=== PATIENT | male | born 1980 | race Caucasian/White ===

== ENCOUNTER 2016-07-18 09:41 | Inpatient (IN) | payer OTHER ==
[2016-07-18 10:35] VITALS: BMI 26.4
--- NOTE | 2016-07-18 11:09 | HP ---
CIWA Score - CIWA Score Nausea/Vomitin-Mild Nausea/No Vomiting Muscle Tremors: 4-Moderate,w/Arms Extend Anxiety: 4-Mod. Anxious/Guarded Agitation: 1-Slight > Activity Paroxysmal Sweats: 1-Minimal Palms Moist Orientation: 0-Oriented Tacttile Disturbances: 1-Very Mild Itch/Numbness Auditory Disturbances: 1-Very Mild Visual Disturbances: 1-Very Mild Sensitivity Headache: 1-Very Mild CIWA-Ar Total Score: 15 Admission ROS BHS - HPI Chief Complaint: my parole sent me here to get of the xanax - they don't want me taking it with the suboxone Allergies/Adverse Reactions: Allergies Allergy/AdvReac Type Severity Reaction Status Date / Time No Known Drug Allergies Allergy Unknown Verified 07/18/16 11:51 Fish Containing Products AdvReac Intermediate Rash Verified 07/18/16 10:58 History of Present Illness: 35 yo gentleman here for detox from alprazolam. On suboxone for four months at [facility] - took dose today, verified by [facility]. No seizures. Last time in detox eight years ago at [facility]. Exam Limitations: Clinical Condition - Ebola screening Have you traveled outside of the country in the last 21 days: No Have you had contact with anyone from an Ebola affected area: No Have you been sick,other than usual withdrawal symptoms: No Do you have a fever: No - Review of Systems Constitutional: Chills, Loss of Appetite, Night Sweats, Changes in sleep, Weakness EENT: reports: Nose Congestion Respiratory: reports: Cough, Other (yellow/green phlegm x 1 day) Cardiac: reports: No Symptoms Reported GI: reports: No Symptoms Reported : reports: Frequency Musculoskeletal: reports: No Symptoms Reported Integumentary: reports: Dryness Neuro: reports: No Symptoms reported Hematology: reports: No Symptoms Reported Psychiatric: reports: Mood/Affect Appropiate, Orientated x3, Anxious Other Systems: Reviewed and Negative Patient History - Patient Medical History Hx Anemia: No Hx Asthma: No Hx Chronic Obstructive Pulmonary Disease (COPD): No Hx Cancer: No Hx Cardiac Disorders: No Hx Congestive Heart Failure: No Hx Hypertension: No Hx Hypercholesterolemia: No Hx Pacemaker: No HX Cerebrovascular Accident: No Hx Seizures: No Hx Dementia: No Hx Diabetes: Yes (oral meds) Hx Gastrointestinal Disorders: No Hx Liver Disease: No Hx Genitourinary Disorders: No Hx Sexually Transmitted Disorders: No Hx Renal Disease (ESRD): No Hx Thyroid Disease: No Hx Human Immunodeficiency Virus (HIV): No Hx Hepatitis C: Yes (not treated yet) Hx Suicide Attempt: No Hx Bipolar Disorder: Yes (on meds, never hospitalized) Hx Schizophrenia: No - Patient Surgical History Past Surgical History: No - PPD History Previous Implant?: Yes Documented Results: Negative w/o proof Implanted On Prior R Admission?: No PPD to be Administered?: Yes - Reproductive History Patient is a Female of Child Bearing Age (11 -55 yrs old): No (male) - Smoking Cessation Smoking history: Current every day smoker Have you smoked in the past 12 months: Yes Aproximately how many cigarettes per day: 10 Hx Chewing Tobacco Use: No Initiated information on smoking cessation: Yes 'Breaking Loose' booklet given: 07/18/16 (give on floor) - Substance & Tx. History Hx Alcohol Use: No Hx Substance Use: Yes Substance Use Type: Tranquilizers Hx Substance Use Treatment: Yes (xanax) - Substances Abused Alprazolam (Xanax) Route: Oral Frequency: Daily Amount used: 4mg Age of first use: 15 Date of Last Use: 07/18/16 Family Disease History - Family Disease History Family Disease History: Diabetes: Father (alive), Heart Disease: Mother (alive) , Other: Father, Brother (one - alive ), Sister (one - alive), Daughter (age 15 - alive - no problems) Admission Physical Exam S - Vital Signs Vital Signs: Vital Signs - 24 hr 07/18/16 10:29 Temperature 99.0 F Pulse Rate 85 Respiratory 18 Rate Blood Pressure 126/79 - Physical General Appearance: Yes: Nourished, Appropriately Dressed, Mild Distress HEENTM: Yes: Hearing grossly Normal, Normal ENT Inspection, Normocephalic, Normal Voice, Pharynx Normal Respiratory: Yes: Normal Breath Sounds, No Respiratory Distress Neck: Yes: No masses,lesions,Nodules, Supple Breast: Yes: Breast Exam Deferred Cardiology: Yes: Regular Rhythm, Regular Rate Abdominal: Yes: Soft Genitourinary: Yes: Frequency Back: Yes: Normal Inspection Musculoskeletal: Yes: full range of Motion, Gait Steady Extremities: Yes: Normal Range of Motion, Non-Tender Neurological: Yes: Fully Oriented, Alert, Normal Mood/Affect Integumentary: Yes: Normal Color, Dry, Warm Lymphatic: Yes: Within Normal Limits - Diagnostic (1) Diabetes mellitus treated with oral medication Current Visit: Yes Status: Chronic (2) Nicotine dependence Current Visit: Yes Status: Chronic Qualifiers: Nicotine product type: cigarettes (3) Sedative, hypnotic or anxiolytic dependence with intoxication, uncomplicated Current Visit: Yes Status: Chronic (4) Hepatitis C antibody positive in blood Current Visit: Yes Status: Acute Cleared for Admission [facility] - Detox or Rehab [facility] Level of Care: Medically Managed Detox Regimen/Protocol: Valium [facility] Breath Alcohol Content Breath Alcohol Content: 0 Urine Drug Screen - Results Drug Screen Negative: No Urine Drug Screen Results: BZO-Benzodiazepines
[2016-07-18] MEDS ORDERED: MAGNESIUM CITRATE 300 ML BOTTLE PO PRN (11:11)
[2016-07-18] MEDS ORDERED: MENTHOL/PHENOL 1 EACH UD MM PRN (11:11)
[2016-07-18] MEDS ORDERED: P-EPHED 60MG/TRIPROLIDI 2.5MG TABLET PO PRN (11:11)
[2016-07-18] MEDS ORDERED: diazePAM 5 MG TABLET PO ONE ×2 (11:11→12:45)
[2016-07-18] MEDS ORDERED: hydrOXYzine PAMOATE 50 MG CAPSULE (FP) PO PRN (11:11)
[2016-07-18] MEDS ORDERED: MAG HYDROX/AL HYDROX/SIMETH 30 ML UNIT-DOSE CUP PO PRN (11:11)
[2016-07-18] MEDS ORDERED: guaiFENesin/D-METHORPHAN HB 10 ML UNIT-DOSE CUPS PO PRN (11:11)
[2016-07-18] MEDS ORDERED: LOPERAMIDE HCL 2 MG CAPSULE PO PRN (11:11)
[2016-07-18] MEDS ORDERED: NICOTINE POLACRILEX 4 MG GUM BUC PRN (11:11)
[2016-07-18] MEDS ORDERED: ACETAMINOPHEN 325 MG TABLET (FP) PO PRN (11:11)
[2016-07-18] MEDS ORDERED: IBUPROFEN 400 MG TABLET (FP) PO PRN (11:11)
[2016-07-18] MEDS ORDERED: MAGNESIUM HYDROX 2400MG/30ML ORAL SUSPENSION 30 ML CUP PO PRN (11:11)
[2016-07-18] MEDS: diazePAM 5 MG TABLET PO SCH ×2 (13:44→22:52)
[2016-07-18] MEDS: metFORMIN HCL 500 MG TABLET (FP) PO SCH (13:44)
[2016-07-18] MEDS: NICOTINE 14 MG/24 HOURS TOPICAL PATCH TD SCH (13:45)
--- NOTE | 2016-07-18 14:11 | CONSULT ---
[facility] Psychiatric Consult - Data Date of interview: 07/18/16 Admission source: [facility] Identifying data: This is 35 years old male with no psychiatric hospitalization history intoxicated with: Xanax and Nicotine Substance Abuse History: - Smoking Cessation. Smoking history: Current every day smoker. Have you smoked in the past 12 months: Yes. Aproximately how many cigarettes per day: 10. Hx Chewing Tobacco Use: No. Initiated information on smoking cessation: Yes. 'Breaking Loose' booklet given: 07/18/16 (give on floor ). - Substance & Tx. History. Hx Alcohol Use: No. Hx Substance Use: Yes. Substance Use Type: Tranquilizers. Hx Substance Use Treatment: Yes (xanax). - Substances Abused. Alprazolam (Xanax). Route: Oral. Frequency: Daily. Amount used: 4mg. Age of first use: 15. Date of Last Use: 07/18/16 Medical History: Hep C+, DM Psychiatric History: Pateint reports history of depression and anxiety, reportsm taking prior to admission: Abilify 10mg poqd. Zoloft 100mg poqd Physical/Sexual Abuse/Trauma History: Denies Additional Comment: Abilify 10mg poqd. Zoloft 100mg poqd Mental Status Exam - Mental Status Exam Alert and Oriented to: Person Cognitive Function: Fair Patient Appearance: Unkempt Mood: Sad Affect: Flat Patient Behavior: Sedated Speech Pattern: Delayed Voice Loudness: Mildly Soft/Quiet Thought Process: Circumstantial Thought Disorder: Being Controlled Hallucinations: Denies Suicidal Ideation: Denies Homicidal Ideation: Denies Insight/Judgement: Fair Sleep: Difficulty falling asleep Appetite: Weight gain Muscle strength/Tone: Mild Hypotonicity Gait/Station: Shuffling Additional Comments: Abilify 10mg poqd. Zoloft 100mg poqd Psychiatric Findings - Problem List ([place] 1, 2,3) (1) Nicotine dependence Current Visit: Yes Status: Chronic Qualifiers: Nicotine product type: cigarettes (2) Sedative, hypnotic or anxiolytic dependence with intoxication, uncomplicated Current Visit: Yes Status: Chronic (3) Drug-induced mood disorder Current Visit: Yes Status: Acute - Initial Treatment Plan Initial Treatment Plan: Abilify 10mg poqd. Zoloft 100mg poqd
[2016-07-18 19:20] LABS: URINE APPEARANCE CLEAR; URINE BILIRUBIN NEGATIVE (NEGATIVE); URINE BLOOD NEGATIVE (NEGATIVE); URINE COLOR YELLOW; URINE GLUCOSE (UA) NEGATIVE (NEGATIVE); URINE KETONE NEGATIVE (NEGATIVE); URINE LEUK ESTERASE NEGATIVE (NEGATIVE); URINE NITRITE NEGATIVE (NEGATIVE); URINE PROTEIN NEGATIVE (NEGATIVE); URINE UROBILINOGEN NEGATIVE E.U./dl (0.2-1.0)
[2016-07-18] MEDS ORDERED: diphenhydrAMINE HCL 50 MG CAPSULE PO PRN (22:00)
[2016-07-18] MEDS: THIAMINE HCL 100 MG TABLET (FP) PO SCH (22:52)
[2016-07-19] MEDS: diazePAM 5 MG TABLET PO SCH ×3 (07:16→22:35)
[2016-07-19] MEDS: metFORMIN HCL 500 MG TABLET (FP) PO SCH (07:19)
[2016-07-19] MEDS ORDERED: diazePAM 5 MG TABLET PO SCH (10:00)
[2016-07-19] MEDS: SERTRALINE HCL 50 MG TABLET (FP) PO SCH (10:45)
[2016-07-19] MEDS: PRENATAL VITAMINS W/ FOLIC ACID TABLET (FP) PO SCH (10:45)
[2016-07-19] MEDS: BUPRENORPHINE/NALOXONE 8 MG/2 MG FILM PACKET SL SCH (10:47)
[2016-07-19] MEDS: NICOTINE 14 MG/24 HOURS TOPICAL PATCH TD SCH (10:47)
[2016-07-19] MEDS: ARIPiprazole 10 MG TABLET PO SCH (10:48)
[2016-07-19] MEDS: diazePAM 5 MG TABLET PO PRN (10:49)
[2016-07-19 11:05] LABS: MCH 29.9 pg (25.7-33.7); MCHC 33.2 g/dl (32.0-35.9); MEAN PLT VOLUME 8.6 fl (7.5-11.1); PLATELET COUNT 197 K/MM3 (134-434); RDW 14.2 % (11.9-15.9); WHITE BLOOD COUNT 10.4 K/mm3 (4.0-10.0)
[2016-07-19 11:14] LABS: ALBUMIN 3.8 g/dl (3.4-5.0); ANION GAP 8 (8-16); CALCIUM 8.4 mg/dL (8.5-10.1); CO2 28 mmol/L (21-32); COCKROFT - GAULT 179.54; CREATININE 0.7 mg/dL (0.7-1.3); GLUCOSE,RANDOM 95 mg/dL (74-106); SGOT/AST 55 U/L (15-37); SGPT/ALT 82 U/L (12-78)
[2016-07-19 11:22] LABS: ALK PHOS 83 U/L (45-117); BILIRUBIN,TOTAL 0.5 mg/dL (0.2-1.0); TOT PROT 7.2 g/dl (6.4-8.2)
--- NOTE | 2016-07-19 11:24 | PN ---
S CIWA - CIWA Score Nausea/Vomitin-Mild Nausea/No Vomiting Muscle Tremors: 3 Anxiety: 4-Mod. Anxious/Guarded Agitation: 3 Paroxysmal Sweats: 3 Orientation: 0-Oriented Tacttile Disturbances: 0-None Auditory Disturbances: 0-None Visual Disturbances: 0-None Headache: 0-None Present CIWA-Ar Total Score: 14 BHS Progress Note (SOAP) Subjective: Anxiety,tremors,sweating,interrupted sleep,restless Objective: 07/19/16 11:23 Vital Signs - 8 hr 07/19/16 07/19/16 07/19/16 03:49 06:00 10:00 Temperature 97.5 F L 98.1 F Pulse Rate 60 68 Respiratory 18 18 18 Rate Blood Pressure 122/64 122/72 Laboratory Tests 07/18/16 07/18/16 07/19/16 12:10 19:03 07:00 WBC 10.4 H RBC 5.55 Hgb 16.6 Hct 49.9 H MCV 90.0 MCHC 33.2 RDW 14.2 Plt Count 197 MPV 8.6 POC Glucometer 135 Urine Color Yellow Urine Appearance Clear Urine pH 5.0 Ur Specific [place] 1.020 Urine Protein Negative Urine Glucose (UA) Negative Urine Ketones Negative Urine Blood Negative Urine Nitrite Negative Urine Bilirubin Negative Urine Urobilinogen Negative Ur Leukocyte Esterase Negative 07/19/16 07:18 WBC RBC Hgb Hct MCV MCHC RDW Plt Count MPV POC Glucometer 101 Urine Color Urine Appearance Urine pH Ur Specific [place] Urine Protein Urine Glucose (UA) Urine Ketones Urine Blood Urine Nitrite Urine Bilirubin Urine Urobilinogen Ur Leukocyte Esterase labs noted Assessment: 07/19/16 11:23 Withdrawal sx. Plan: Continue detox
--- NOTE | 2016-07-19 12:45 | EKG ---
Test Reason : Blood Pressure : / mmHG Vent. Rate : 072 BPM Atrial Rate : 072 BPM P-R Int : 150 ms QRS Dur : 090 ms QT Int : 368 ms P-R-T Axes : 058 038 037 degrees QTc Int : 402 ms NORMAL SINUS RHYTHM NORMAL ECG NO PREVIOUS ECGS AVAILABLE Confirmed by AVA FRIEDMAN MD ([id number]) on 07/19/2016 12:45:09 PM Referred By: Confirmed By:AVA FRIEDMAN MD
[2016-07-19] MEDS: THIAMINE HCL 100 MG TABLET (FP) PO SCH (22:35)
[2016-07-20] MEDS: metFORMIN HCL 500 MG TABLET (FP) PO SCH (06:30)
[2016-07-20] MEDS: diazePAM 5 MG TABLET PO PRN ×3 (06:32→22:22)
[2016-07-20] MEDS ORDERED: diazePAM 5 MG TABLET PO SCH ×2 (10:00)
[2016-07-20] MEDS: NICOTINE 14 MG/24 HOURS TOPICAL PATCH TD SCH (10:32)
[2016-07-20] MEDS: PRENATAL VITAMINS W/ FOLIC ACID TABLET (FP) PO SCH (10:32)
[2016-07-20] MEDS: SERTRALINE HCL 50 MG TABLET (FP) PO SCH (10:32)
[2016-07-20] MEDS: BUPRENORPHINE/NALOXONE 8 MG/2 MG FILM PACKET SL SCH (10:32)
[2016-07-20] MEDS: ARIPiprazole 10 MG TABLET PO SCH (10:33)
--- NOTE | 2016-07-20 11:21 | PN ---
S CIWA - CIWA Score Nausea/Vomitin-Mild Nausea/No Vomiting Muscle Tremors: 2 Anxiety: 3 Agitation: 3 Paroxysmal Sweats: 3 Orientation: 0-Oriented Tacttile Disturbances: 1-Very Mild Itch/Numbness Auditory Disturbances: 0-None Visual Disturbances: 0-None Headache: 0-None Present CIWA-Ar Total Score: 13 S Progress Note (SOAP) Subjective: interrupted sleep, sweats , wants to leave detox 1 day early . Objective: 07/20/16 11:19 Vital Signs Temperature 97.5 F L 07/20/16 09:16 Pulse Rate 58 L 07/20/16 09:16 Respiratory Rate 16 07/20/16 09:16 Blood Pressure 125/73 07/20/16 09:16 O2 Sat by Pulse Oximetry (%) Laboratory Tests 07/18/16 07/18/16 07/19/16 12:10 19:03 07:00 WBC 10.4 H RBC 5.55 Hgb 16.6 Hct 49.9 H MCV 90.0 MCHC 33.2 RDW 14.2 Plt Count 197 MPV 8.6 Sodium Potassium Chloride Carbon Dioxide Anion Gap BUN Creatinine Creat Clearance w eGFR POC Glucometer 135 Random Glucose Calcium Total Bilirubin AST ALT Alkaline Phosphatase Total Protein Albumin Urine Color Yellow Urine Appearance Clear Urine pH 5.0 Ur Specific [place] 1.020 Urine Protein Negative Urine Glucose (UA) Negative Urine Ketones Negative Urine Blood Negative Urine Nitrite Negative Urine Bilirubin Negative Urine Urobilinogen Negative Ur Leukocyte Esterase Negative RPR Titer 07/19/16 07/19/16 07/19/16 07:00 07:00 07:18 WBC RBC Hgb Hct MCV MCHC RDW Plt Count MPV Sodium 139 Potassium 4.6 Chloride 103 Carbon Dioxide 28 Anion Gap 8 BUN 9 Creatinine 0.7 Creat Clearance w eGFR > 60 POC Glucometer 101 Random Glucose 95 Calcium 8.4 L Total Bilirubin 0.5 AST 55 H ALT 82 H Alkaline Phosphatase 83 Total Protein 7.2 Albumin 3.8 Urine Color Urine Appearance Urine pH Ur Specific [place] Urine Protein Urine Glucose (UA) Urine Ketones Urine Blood Urine Nitrite Urine Bilirubin Urine Urobilinogen Ur Leukocyte Esterase RPR Titer Nonreactive 07/20/16 06:24 WBC RBC Hgb Hct MCV MCHC RDW Plt Count MPV Sodium Potassium Chloride Carbon Dioxide Anion Gap BUN Creatinine Creat Clearance w eGFR POC Glucometer 166 Random Glucose Calcium Total Bilirubin AST ALT Alkaline Phosphatase Total Protein Albumin Urine Color Urine Appearance Urine pH Ur Specific [place] Urine Protein Urine Glucose (UA) Urine Ketones Urine Blood Urine Nitrite Urine Bilirubin Urine Urobilinogen Ur Leukocyte Esterase RPR Titer pt aox3 in nad ambulating Assessment: 07/20/16 11:20 withdrawal sx's Plan: cont. detox increase fluids change valium order for am d/c .
[2016-07-20] MEDS: THIAMINE HCL 100 MG TABLET (FP) PO SCH (22:22)
[2016-07-21] MEDS: metFORMIN HCL 500 MG TABLET (FP) PO SCH (07:30)
--- NOTE | 2016-07-21 08:43 | DS ---
[facility] Detox Discharge Summary Admission Date: 07/18/16 Discharge Date: 07/21/16 - History Present History: Alcohol Dependence, Sedative Dependence - Physical Exam Results Vital Signs: Vital Signs Temperature 97.3 F L 07/21/16 06:56 Pulse Rate 49 L 07/21/16 06:56 Respiratory Rate 18 07/21/16 06:56 Blood Pressure 95/48 07/21/16 06:56 O2 Sat by Pulse Oximetry (%) - Treatment Hospital Course: Detox Protocol Followed, Detoxed Safely, Responded well, Discharged Condition Good, Rehab Referral Accepted - Medication Discharge Medications: Ambulatory Orders Aripiprazole [Abilify -] 10 mg PO DAILY 07/18/16 Aripiprazole [Abilify -] 10 mg PO DAILY #30 tablet 07/18/16 Buprenorphine HCl/Naloxone HCl [Suboxone 8 mg-2 mg Sl Tablets] 1 each SL DAILY 07/18/16 Metformin HCl [Glucophage -] 500 mg PO DAILY 07/18/16 Sertraline HCl [Zoloft -] 100 mg PO DAILY 07/18/16 Sertraline HCl [Zoloft -] 100 mg PO DAILY #30 tablet 07/18/16 - Diagnosis (1) Alcohol dependence Current Visit: Yes Status: Chronic Qualifiers: Substance use status: uncomplicated Qualified Code(s): F10.20 - Alcohol dependence, uncomplicated (2) Drug-induced mood disorder Current Visit: Yes Status: Acute (3) Hepatitis C antibody positive in blood Current Visit: Yes Status: Acute (4) Diabetes mellitus treated with oral medication Current Visit: Yes Status: Chronic (5) Nicotine dependence Current Visit: Yes Status: Chronic Qualifiers: Nicotine product type: cigarettes (6) Sedative, hypnotic or anxiolytic dependence with intoxication, uncomplicated Current Visit: Yes Status: Chronic - AMA Did Patient Leave Against Medical Advice: No
[2016-07-21] MEDS: BUPRENORPHINE/NALOXONE 8 MG/2 MG FILM PACKET SL SCH (09:17)
[2016-07-21] MEDS: ARIPiprazole 10 MG TABLET PO SCH (09:17)
[2016-07-21] MEDS: PRENATAL VITAMINS W/ FOLIC ACID TABLET (FP) PO SCH (09:18)
[2016-07-21] MEDS: SERTRALINE HCL 50 MG TABLET (FP) PO SCH (09:18)
[2016-07-21 09:46] VITALS: BP 106/59; PULSE 57; TEMP 97.9
[2016-07-21] MEDS ORDERED: diazePAM 5 MG TABLET PO SCH (10:00)
[2016-07-21] MEDS: NICOTINE 14 MG/24 HOURS TOPICAL PATCH TD SCH (11:33)
[2016-07-22] MEDS ORDERED: diazePAM 5 MG TABLET PO SCH (10:00)
== END 2016-07-21 12:48 | disposition other institution (70) | DRG 775 ==
LOC: YASAS 09:41 → Y6N 12:31
PROVIDERS: ADMIT Internal Medicine; ATTEND Internal Medicine Addiction Medicine
PROC: HZ2ZZZZ Detoxification Services for Substance Abuse Treatment (ICD-10-PCS; principal; 2016-07-21)
DX: F13.230 Sedative, hypnotic or anxiolytic dependence with withdrawal, uncomplicated (principal); F10.230 Alcohol dependence with withdrawal, uncomplicated; F17.210 Nicotine dependence, cigarettes, uncomplicated; F19.24 Other psychoactive substance dependence with psychoactive substance-induced mood disorder; E11.9 Type 2 diabetes mellitus without complications; Z79.84 Long term (current) use of oral hypoglycemic drugs; B18.2 Chronic viral hepatitis C
CPT/HCPCS: 36415; 80053; 81003; 85027; 86593; 93005; 93010

== ENCOUNTER 2016-07-21 13:22 | Inpatient (IN) | payer OTHER ==
[2016-07-21] MEDS ORDERED: diphenhydrAMINE HCL 50 MG CAPSULE PO PRN (13:30)
[2016-07-21] MEDS ORDERED: MENTHOL/PHENOL 1 EACH UD MM PRN (13:30)
[2016-07-21] MEDS ORDERED: MAGNESIUM HYDROX 2400MG/30ML ORAL SUSPENSION 30 ML CUP PO PRN (13:30)
[2016-07-21] MEDS ORDERED: LOPERAMIDE HCL 2 MG CAPSULE PO PRN (13:30)
[2016-07-21] MEDS ORDERED: P-EPHED 60MG/TRIPROLIDI 2.5MG TABLET PO PRN (13:30)
[2016-07-21] MEDS ORDERED: MAG HYDROX/AL HYDROX/SIMETH 30 ML UNIT-DOSE CUP PO PRN (13:30)
[2016-07-21] MEDS ORDERED: NICOTINE POLACRILEX 2 MG GUM BUC PRN (13:30)
[2016-07-21] MEDS ORDERED: MAGNESIUM CITRATE 300 ML BOTTLE PO PRN (13:30)
[2016-07-21 14:05] VITALS: BMI 27.1
[2016-07-21] MEDS: INSULIN SLIDING SCALE (NOVOLOG) 1 VIAL SQ SCH (16:44)
[2016-07-21] MEDS: THIAMINE HCL 100 MG TABLET (FP) PO SCH (23:45)
[2016-07-22] MEDS: guaiFENesin/D-METHORPHAN HB 10 ML UNIT-DOSE CUPS PO PRN (06:08)
--- NOTE | 2016-07-22 06:32 | HP ---
Psychiatrist Admission - Data Date of interview: 07/22/16 Admission source: 6N Identifying data: This is the first [facility] admission for this 35 years old single male, father of a 16 years old daughter, unemployed on public assistance,supporting housing Medical History: Significant for DM, Hep C. Attends [facility] on Suboxone 8 mg/2 mg/day. Smokes 10 cigarettes daily Psychiatric History: Reports that his only psychiatric admission was in 2007 when he was admitted to [facility] for depression and anxiety in the setting of substance use. Claims that he was diagnosed with Bipolar Disorder and treated with Zoloft and Abilify. He was discharged after 2 weeks and referred to [facility] where he was continued on the same medications for a year when he dropped out of treatment. Told card writer hand that he went to [facility] till recently and did not get psychiatric services while there. He resumed psychiatric treatment for the past 5 months at [facility] where he is on OTP. He is currently presvribed Zoloft 100 mg po daily & Abilify 10 mg po HS. He denies history of suicidal attempt. At present, reports feeling anxious Physical/Sexual Abuse/Trauma History: Denies his Additional Comment: Reports history of multiple arrests including 2 felony conviction. Reports being on parole till Dec 2018 Vital Signs: Vital Signs - 24 hr 07/21/16 07/22/16 07/22/16 13:47 00:30 03:30 Temperature 98.7 F Respiratory 18 18 Rate Allergies/Adverse Reactions: Allergies Allergy/AdvReac Type Severity Reaction Status Date / Time No Known Drug Allergies Allergy Unknown Verified 07/21/16 14:06 Fish Containing Products AdvReac Intermediate Rash Verified 07/21/16 14:06 Date of last physical exam: 07/18/16 Concur with the findings of this exam: Yes - Substance Abuse/Tx History Hx Alcohol Use: No Hx Substance Use: Yes Substance Use Type: Heroin (Last used heroin 3 years ago. ), Tranquilizers ( Started using xanax at age 15, consumes 4mg daily. Last used on 3=07/18/16) Hx Substance Use Treatment: Yes (4 previous inpt detox. First inpt rehab) - Admission Criteria Previous failed treatment: No Poor recovery environment: Yes Comorbidities: Yes Lacks judgement: Yes Mental Status Exam - Mental Status Exam Alert and Oriented to: Time, Place, Person Cognitive Function: Fair Patient Appearance: Well Groomed Mood: Anxious Affect: Appropriate Patient Behavior: Cooperative (underlying irritability) Speech Pattern: Clear Voice Loudness: Normal Thought Process: Intact Thought Disorder: Not Present Hallucinations: Denies Suicidal Ideation: Denies Homicidal Ideation: Denies Insight/Judgement: Poor Sleep: Poorly Appetite: Good Muscle strength/Tone: Normal Gait/Station: Normal Psychiatric Findings - Problem List ([place] 1, 2,3) (1) Sedative, hypnotic or anxiolytic dependence with intoxication, uncomplicated Current Visit: No Status: Chronic (2) Nicotine dependence Current Visit: No Status: Chronic Qualifiers: Nicotine product type: cigarettes (3) Opioid dependence on agonist therapy Current Visit: Yes Status: Acute (4) Bipolar disorder Current Visit: Yes Status: Acute (5) Substance induced mood disorder Current Visit: Yes Status: Ruled-out (6) Hepatitis C antibody positive in blood Current Visit: No Status: Acute (7) Diabetes mellitus treated with oral medication Current Visit: No Status: Chronic - Initial Treatment Plan Initial Treatment Plan: 1) Continue Zoloft 100 mg po daily and Abilify 10 mg po daily. 2) Monitor progress
[2016-07-22] MEDS: metFORMIN HCL 500 MG TABLET (FP) PO SCH (07:05)
[2016-07-22] MEDS: INSULIN SLIDING SCALE (NOVOLOG) 1 VIAL SQ SCH ×2 (07:06→16:48)
[2016-07-22] MEDS: PRENATAL VITAMINS W/ FOLIC ACID TABLET (FP) PO SCH (09:42)
[2016-07-22] MEDS: NICOTINE 14 MG/24 HOURS TOPICAL PATCH TD SCH (09:43)
[2016-07-22] MEDS ORDERED: BUPRENORPHINE/NALOXONE 8 MG/2 MG FILM PACKET SL SCH (10:00)
[2016-07-22] MEDS: SERTRALINE HCL 50 MG TABLET (FP) PO SCH (10:46)
[2016-07-22] MEDS: ARIPiprazole 10 MG TABLET PO SCH (10:47)
[2016-07-22] MEDS: ACETAMINOPHEN 325 MG TABLET (FP) PO PRN (16:53)
[2016-07-22] MEDS: THIAMINE HCL 100 MG TABLET (FP) PO SCH (21:40)
[2016-07-23] MEDS: BUPRENORPHINE/NALOXONE 8 MG/2 MG FILM PACKET SL SCH (06:31)
[2016-07-23] MEDS: metFORMIN HCL 500 MG TABLET (FP) PO SCH (06:32)
[2016-07-23] MEDS: INSULIN SLIDING SCALE (NOVOLOG) 1 VIAL SQ SCH ×2 (06:33→23:15)
[2016-07-23] MEDS: guaiFENesin/D-METHORPHAN HB 10 ML UNIT-DOSE CUPS PO PRN ×3 (06:57→20:50)
[2016-07-23] MEDS: NICOTINE 14 MG/24 HOURS TOPICAL PATCH TD SCH (10:30)
[2016-07-23] MEDS: SERTRALINE HCL 50 MG TABLET (FP) PO SCH (10:30)
[2016-07-23] MEDS: ARIPiprazole 10 MG TABLET PO SCH (10:30)
[2016-07-23] MEDS: PRENATAL VITAMINS W/ FOLIC ACID TABLET (FP) PO SCH (10:30)
[2016-07-23] MEDS ORDERED: BUPRENORPHINE/NALOXONE 8 MG/2 MG FILM PACKET SL SCH (18:00)
[2016-07-23] MEDS: THIAMINE HCL 100 MG TABLET (FP) PO SCH (23:15)
[2016-07-24] MEDS: BUPRENORPHINE/NALOXONE 8 MG/2 MG FILM PACKET SL SCH (06:04)
[2016-07-24] MEDS: metFORMIN HCL 500 MG TABLET (FP) PO SCH (07:25)
[2016-07-24] MEDS: INSULIN SLIDING SCALE (NOVOLOG) 1 VIAL SQ SCH ×2 (07:25→17:01)
[2016-07-24] MEDS: PRENATAL VITAMINS W/ FOLIC ACID TABLET (FP) PO SCH (10:11)
[2016-07-24] MEDS: SERTRALINE HCL 50 MG TABLET (FP) PO SCH (10:11)
[2016-07-24] MEDS: NICOTINE 14 MG/24 HOURS TOPICAL PATCH TD SCH (10:12)
[2016-07-24] MEDS: ARIPiprazole 10 MG TABLET PO SCH (10:53)
[2016-07-24] MEDS: THIAMINE HCL 100 MG TABLET (FP) PO SCH (21:45)
[2016-07-25] MEDS: BUPRENORPHINE/NALOXONE 8 MG/2 MG FILM PACKET SL SCH (05:49)
[2016-07-25] MEDS: INSULIN SLIDING SCALE (NOVOLOG) 1 VIAL SQ SCH ×2 (07:09→16:54)
[2016-07-25] MEDS: metFORMIN HCL 500 MG TABLET (FP) PO SCH (07:09)
[2016-07-25] MEDS: SERTRALINE HCL 50 MG TABLET (FP) PO SCH (10:10)
[2016-07-25] MEDS: PRENATAL VITAMINS W/ FOLIC ACID TABLET (FP) PO SCH (10:10)
[2016-07-25] MEDS: ARIPiprazole 10 MG TABLET PO SCH (10:11)
[2016-07-25] MEDS: NICOTINE 14 MG/24 HOURS TOPICAL PATCH TD SCH (10:11)
[2016-07-25] MEDS: THIAMINE HCL 100 MG TABLET (FP) PO SCH (21:51)
[2016-07-26] MEDS: BUPRENORPHINE/NALOXONE 8 MG/2 MG FILM PACKET SL SCH (05:55)
[2016-07-26] MEDS: metFORMIN HCL 500 MG TABLET (FP) PO SCH (07:11)
[2016-07-26] MEDS: INSULIN SLIDING SCALE (NOVOLOG) 1 VIAL SQ SCH ×2 (07:11→17:01)
[2016-07-26] MEDS: PRENATAL VITAMINS W/ FOLIC ACID TABLET (FP) PO SCH (10:15)
[2016-07-26] MEDS: NICOTINE 14 MG/24 HOURS TOPICAL PATCH TD SCH (10:16)
[2016-07-26] MEDS: SERTRALINE HCL 50 MG TABLET (FP) PO SCH (10:16)
[2016-07-26] MEDS: ARIPiprazole 10 MG TABLET PO SCH (10:16)
[2016-07-26] MEDS: THIAMINE HCL 100 MG TABLET (FP) PO SCH (21:37)
[2016-07-27] MEDS: metFORMIN HCL 500 MG TABLET (FP) PO SCH (06:19)
[2016-07-27] MEDS: BUPRENORPHINE/NALOXONE 8 MG/2 MG FILM PACKET SL SCH (06:19)
[2016-07-27] MEDS: INSULIN SLIDING SCALE (NOVOLOG) 1 VIAL SQ SCH ×2 (06:22→16:59)
[2016-07-27] MEDS: PRENATAL VITAMINS W/ FOLIC ACID TABLET (FP) PO SCH (09:54)
[2016-07-27] MEDS: NICOTINE 14 MG/24 HOURS TOPICAL PATCH TD SCH (09:54)
[2016-07-27] MEDS: SERTRALINE HCL 50 MG TABLET (FP) PO SCH (09:54)
[2016-07-27] MEDS: ARIPiprazole 10 MG TABLET PO SCH (09:54)
[2016-07-27] MEDS: IBUPROFEN 400 MG TABLET (FP) PO PRN (17:36)
[2016-07-27] MEDS: THIAMINE HCL 100 MG TABLET (FP) PO SCH (22:00)
[2016-07-28] MEDS: BUPRENORPHINE/NALOXONE 8 MG/2 MG FILM PACKET SL SCH (06:19)
[2016-07-28] MEDS: INSULIN SLIDING SCALE (NOVOLOG) 1 VIAL SQ SCH ×2 (06:19→23:23)
[2016-07-28] MEDS: metFORMIN HCL 500 MG TABLET (FP) PO SCH (06:19)
[2016-07-28] MEDS: PRENATAL VITAMINS W/ FOLIC ACID TABLET (FP) PO SCH (10:19)
[2016-07-28] MEDS: SERTRALINE HCL 50 MG TABLET (FP) PO SCH (10:19)
[2016-07-28] MEDS: ARIPiprazole 10 MG TABLET PO SCH (10:20)
[2016-07-28] MEDS: NICOTINE 14 MG/24 HOURS TOPICAL PATCH TD SCH (10:20)
[2016-07-28] MEDS: THIAMINE HCL 100 MG TABLET (FP) PO SCH (23:23)
[2016-07-29] MEDS: BUPRENORPHINE/NALOXONE 8 MG/2 MG FILM PACKET SL SCH (06:01)
[2016-07-29] MEDS: metFORMIN HCL 500 MG TABLET (FP) PO SCH (06:01)
[2016-07-29] MEDS: INSULIN SLIDING SCALE (NOVOLOG) 1 VIAL SQ SCH ×2 (06:01→16:48)
[2016-07-29] MEDS: ACETAMINOPHEN 325 MG TABLET (FP) PO PRN ×2 (07:12→15:07)
[2016-07-29] MEDS: ARIPiprazole 10 MG TABLET PO SCH (10:00)
[2016-07-29] MEDS: PRENATAL VITAMINS W/ FOLIC ACID TABLET (FP) PO SCH (10:00)
[2016-07-29] MEDS: SERTRALINE HCL 50 MG TABLET (FP) PO SCH (10:00)
[2016-07-29] MEDS: NICOTINE 14 MG/24 HOURS TOPICAL PATCH TD SCH (10:01)
[2016-07-29] MEDS: THIAMINE HCL 100 MG TABLET (FP) PO SCH (23:20)
[2016-07-30] MEDS: BUPRENORPHINE/NALOXONE 8 MG/2 MG FILM PACKET SL SCH (06:13)
[2016-07-30] MEDS: metFORMIN HCL 500 MG TABLET (FP) PO SCH (06:13)
[2016-07-30] MEDS: INSULIN SLIDING SCALE (NOVOLOG) 1 VIAL SQ SCH ×2 (06:14→16:33)
[2016-07-30] MEDS: PRENATAL VITAMINS W/ FOLIC ACID TABLET (FP) PO SCH (10:03)
[2016-07-30] MEDS: ARIPiprazole 10 MG TABLET PO SCH (10:03)
[2016-07-30] MEDS: NICOTINE 14 MG/24 HOURS TOPICAL PATCH TD SCH (10:04)
[2016-07-30] MEDS: SERTRALINE HCL 50 MG TABLET (FP) PO SCH (10:04)
[2016-07-30] MEDS: IBUPROFEN 400 MG TABLET (FP) PO PRN (17:12)
[2016-07-30] MEDS: THIAMINE HCL 100 MG TABLET (FP) PO SCH (22:48)
[2016-07-31] MEDS: BUPRENORPHINE/NALOXONE 8 MG/2 MG FILM PACKET SL SCH (06:00)
[2016-07-31] MEDS: metFORMIN HCL 500 MG TABLET (FP) PO SCH (06:00)
[2016-07-31] MEDS: INSULIN SLIDING SCALE (NOVOLOG) 1 VIAL SQ SCH ×2 (06:04→16:50)
[2016-07-31] MEDS: PRENATAL VITAMINS W/ FOLIC ACID TABLET (FP) PO SCH (10:11)
[2016-07-31] MEDS: SERTRALINE HCL 50 MG TABLET (FP) PO SCH (10:11)
[2016-07-31] MEDS: ARIPiprazole 10 MG TABLET PO SCH (10:12)
[2016-07-31] MEDS: NICOTINE 14 MG/24 HOURS TOPICAL PATCH TD SCH (10:12)
[2016-07-31] MEDS: THIAMINE HCL 100 MG TABLET (FP) PO SCH (21:54)
[2016-08-01] MEDS: metFORMIN HCL 500 MG TABLET (FP) PO SCH (06:55)
[2016-08-01] MEDS: INSULIN SLIDING SCALE (NOVOLOG) 1 VIAL SQ SCH ×2 (06:57→16:58)
[2016-08-01] MEDS: BUPRENORPHINE/NALOXONE 8 MG/2 MG FILM PACKET SL SCH (07:14)
[2016-08-01] MEDS: SERTRALINE HCL 50 MG TABLET (FP) PO SCH (10:19)
[2016-08-01] MEDS: NICOTINE 14 MG/24 HOURS TOPICAL PATCH TD SCH (10:19)
[2016-08-01] MEDS: ARIPiprazole 10 MG TABLET PO SCH (10:19)
[2016-08-01] MEDS: PRENATAL VITAMINS W/ FOLIC ACID TABLET (FP) PO SCH (10:19)
[2016-08-01] MEDS ORDERED: INSULIN (NOVOLOG) ASPART 100 UNITS/ML 10ML VIAL ONE (16:57)
[2016-08-01] MEDS ORDERED: BUPRENORPHINE/NALOXONE 8 MG/2 MG FILM PACKET SL SCH (22:00)
[2016-08-01] MEDS: THIAMINE HCL 100 MG TABLET (FP) PO SCH (22:26)
[2016-08-02] MEDS: BUPRENORPHINE/NALOXONE 8 MG/2 MG FILM PACKET SL SCH (06:06)
[2016-08-02] MEDS: metFORMIN HCL 500 MG TABLET (FP) PO SCH (06:06)
[2016-08-02] MEDS: INSULIN SLIDING SCALE (NOVOLOG) 1 VIAL SQ SCH ×2 (06:08→16:37)
[2016-08-02] MEDS: ARIPiprazole 10 MG TABLET PO SCH (10:00)
[2016-08-02] MEDS: PRENATAL VITAMINS W/ FOLIC ACID TABLET (FP) PO SCH (10:00)
[2016-08-02] MEDS: SERTRALINE HCL 50 MG TABLET (FP) PO SCH (10:00)
[2016-08-02] MEDS: NICOTINE 14 MG/24 HOURS TOPICAL PATCH TD SCH (10:00)
[2016-08-02] MEDS: ACETAMINOPHEN 325 MG TABLET (FP) PO PRN (12:30)
[2016-08-02] MEDS ORDERED: INSULIN (NOVOLOG) ASPART 100 UNITS/ML 10ML VIAL ONE (16:38)
[2016-08-02] MEDS: IBUPROFEN 400 MG TABLET (FP) PO PRN (20:46)
[2016-08-02] MEDS: THIAMINE HCL 100 MG TABLET (FP) PO SCH (23:03)
[2016-08-03] MEDS: BUPRENORPHINE/NALOXONE 8 MG/2 MG FILM PACKET SL SCH (06:01)
[2016-08-03] MEDS: metFORMIN HCL 500 MG TABLET (FP) PO SCH (07:10)
[2016-08-03] MEDS: INSULIN SLIDING SCALE (NOVOLOG) 1 VIAL SQ SCH ×2 (07:11→16:56)
--- NOTE | 2016-08-03 08:13 | PN ---
Psychiatric Progress Note Vital Signs: Vital Signs Period Temp Pulse Resp BP Sys/Carlos Pulse Ox Last 24 Hr 97.4 F 60 18-18 143/88 Date of Session: 08/03/16 Chief Complaint:: Discharge Note HPI: Patient addressing Sedative Dependence comorbid with Nicotine Dependence and Bipolar Disorder ROS: Hepatitis C, NIDDM were medically managed Current Medications: Active Medications Generic Name Dose Route Start Last Admin Trade Name Freq PRN Reason Stop Dose Admin Acetaminophen 650 mg 07/21/16 13:30 08/02/16 12:30 Tylenol - PO 650 mg Q4H PRN Administration FEVER OR PAIN Al Hydroxide/Mg Hydroxide 30 ml 07/21/16 13:30 Mylanta Oral Suspension - PO Q6H PRN DYSPEPSIA Aripiprazole 10 mg 07/22/16 10:30 08/02/16 10:00 Abilify PO Not Given DAILY LUDIN Buprenorphine/Naloxone 1 each 08/01/16 06:52 08/03/16 06:01 Suboxone 8mg/2mg Sl Film - SL 08/07/16 21:59 1 each DAILY@0600 LUDIN Administration Diphenhydramine HCl 50 mg 07/21/16 13:30 08/02/16 20:47 Benadryl - PO 50 mg HSMR1 PRN Administration FOR ITCHING Eucalyptus/Menthol/Phenol/Sorbitol 1 each 07/21/16 13:30 07/23/16 16:47 Cepastat Lozenge - MM 1 each Q4H PRN Administration SORE THROAT Guaifenesin 10 ml 07/21/16 13:30 07/23/16 20:50 Robitussin Dm - PO 10 ml Q6H PRN Administration COUGH Ibuprofen 400 mg 07/21/16 13:30 08/02/16 20:46 Motrin - PO 400 mg Q6H PRN Administration PAIN Insulin Aspart 1 vial 07/21/16 16:30 08/03/16 07:11 Novolog Vial Sliding Scale - SQ Not Given BIDAC [facility] Protocol Loperamide HCl 4 mg 07/21/16 13:30 Imodium - PO Q6H PRN DIARRHEA Magnesium Hydroxide 30 ml 07/21/16 13:30 Milk Of Magnesia - PO DAILY PRN CONSTIPATION Metformin HCl 500 mg 07/22/16 07:00 08/03/16 07:10 Glucophage - PO 500 mg DAILY@0700 LUDIN Administration Nicotine 14 mg 07/22/16 10:00 08/02/16 10:00 Nicoderm Patch - TD 14 mg DAILY LUDIN Administration Nicotine Polacrilex 2 mg 07/21/16 13:30 Nicorette Gum - BUC Q2H PRN NICOTINE REPLACEMENT RX Multivit/Folic Acid/Iron 1 tab 07/22/16 10:00 08/02/16 10:00 Vitamins (Sjr) - PO 1 tab DAILY LUDIN Administration Pseudoephedrine/Triprolidine 1 combo 07/21/16 13:30 Actifed - PO TID PRN NASAL CONGESTION Sertraline HCl 100 mg 07/22/16 10:30 08/02/16 10:00 Zoloft - PO 100 mg DAILY LUDIN Administration Thiamine HCl 100 mg 07/21/16 22:00 08/02/16 23:03 Vitamin B1 - PO Not Given HS LUDIN Current Side Effect: No Lab tests ordered: Yes Lab tests reviewed: Yes Provider note:: Patient will complete this program on 08/04/16. He has met his treatment goals and will continue to address his issues in outpatient treatment at [facility]. Told technical proposal writer that from his participation in this program, he has learned to identify his triggers and how best to avoid them.He responded well to Zoloft 100 mg po daily & Abilify 10 mg po daily. Scripts for 30 days supply of medications will be electronically transmited to [facility] at [address] [place] [address]. He is stable for discharge on 08/04/16 Total face to face time:: 35 Mental Status Exam - Mental Status Exam Alert and Oriented to: Time, Place, Person Cognitive Function: Fair Patient Appearance: Well Groomed Mood: Hopeful, Euthymic Affect: Appropriate Patient Behavior: Cooperative Speech Pattern: Clear Voice Loudness: Normal Thought Process: Intact Thought Disorder: Not Present Hallucinations: Denies Suicidal Ideation: Denies Homicidal Ideation: Denies Insight/Judgement: Fair Sleep: Fair Appetite: Good Muscle strength/Tone: Normal Gait/Station: Normal Psychiatric Treatment Plan - Problem List (1) Sedative, hypnotic or anxiolytic dependence with intoxication, uncomplicated Current Visit: No (2) Nicotine dependence Current Visit: No Qualifiers: Nicotine product type: cigarettes (3) Opioid dependence on agonist therapy Current Visit: Yes (4) Bipolar disorder Current Visit: Yes (5) Substance induced mood disorder Current Visit: Yes (6) Hepatitis C antibody positive in blood Current Visit: No (7) Diabetes mellitus treated with oral medication Current Visit: No Initial treatment plan: Patient will be discharged tomorrow and referred to [facility] for outpatient treatment
[2016-08-03] MEDS: PRENATAL VITAMINS W/ FOLIC ACID TABLET (FP) PO SCH (09:50)
[2016-08-03] MEDS: SERTRALINE HCL 50 MG TABLET (FP) PO SCH (09:50)
[2016-08-03] MEDS: ARIPiprazole 10 MG TABLET PO SCH (09:51)
[2016-08-03] MEDS: NICOTINE 14 MG/24 HOURS TOPICAL PATCH TD SCH (09:51)
[2016-08-03] MEDS ORDERED: hydrOXYzine PAMOATE 50 MG CAPSULE (FP) PO PRN (10:00)
[2016-08-03] MEDS: THIAMINE HCL 100 MG TABLET (FP) PO SCH (22:25)
[2016-08-04] MEDS: BUPRENORPHINE/NALOXONE 8 MG/2 MG FILM PACKET SL SCH (06:20)
[2016-08-04 06:48] VITALS: BP 147/91; PULSE 69; TEMP 98.3
[2016-08-04] MEDS: metFORMIN HCL 500 MG TABLET (FP) PO SCH (07:12)
[2016-08-04] MEDS: INSULIN SLIDING SCALE (NOVOLOG) 1 VIAL SQ SCH (07:12)
[2016-08-04] MEDS ORDERED: INSULIN (NOVOLOG) ASPART 100 UNITS/ML 10ML VIAL ONE (07:14)
[2016-08-04] MEDS: ARIPiprazole 10 MG TABLET PO SCH (11:17)
[2016-08-04] MEDS: PRENATAL VITAMINS W/ FOLIC ACID TABLET (FP) PO SCH (11:17)
[2016-08-04] MEDS: NICOTINE 14 MG/24 HOURS TOPICAL PATCH TD SCH (11:17)
[2016-08-04] MEDS: SERTRALINE HCL 50 MG TABLET (FP) PO SCH (11:17)
== END 2016-08-04 10:15 | disposition home or self-care (01) | DRG 772 ==
LOC: YASAS 13:22 → Y3W 13:23
PROVIDERS: ADMIT Psychiatry & Neurology Psychiatry; ATTEND Psychiatry & Neurology Psychiatry
PROC: HZ42ZZZ Group Counseling for Substance Abuse Treatment, Cognitive-Behavioral (ICD-10-PCS; principal; 2016-08-04)
DX: F11.20 Opioid dependence, uncomplicated (principal); F13.20 Sedative, hypnotic or anxiolytic dependence, uncomplicated; F17.210 Nicotine dependence, cigarettes, uncomplicated; F31.9 Bipolar disorder, unspecified; F19.24 Other psychoactive substance dependence with psychoactive substance-induced mood disorder; B19.20 Unspecified viral hepatitis C without hepatic coma; E11.9 Type 2 diabetes mellitus without complications; Z79.4 Long term (current) use of insulin; Z79.84 Long term (current) use of oral hypoglycemic drugs

== ENCOUNTER 2018-06-29 08:08 | Inpatient (IN) | payer OTHER ==
--- NOTE | 2018-06-29 09:26 | HP ---
CIWA Score Nausea/Vomitin Muscle Tremors: 2 Anxiety: 2 Agitation: 2 Paroxysmal Sweats: 1-Minimal Palms Moist Orientation: 0-Oriented Tacttile Disturbances: 1-Very Mild Itch/Numbness Auditory Disturbances: 1-Very Mild Visual Disturbances: 0-None Headache: 2-Mild CIWA-Ar Total Score: 13 - Admission Criteria OASAS Guidelines: Admission for Medically Managed Detox: Requires at least one of the followin. CIWA greater than 12 2. Seizures within the past 24 hours 3. Delirium tremens within the past 24 hours 4. Hallucinations within the past 24 hours 5. Acute intervention needed for co occurring medical disorder 6. Acute intervention needed for co occurring psychiatric disorder 7. Severe withdrawal that cannot be handled at a lower level of care (continued vomiting, continued diarrhea, abnormal vital signs) requiring intravenous medication and/or fluids 8. Admission ROS [facility] - HPI Chief Complaint: i need help to stop using xanax and klonopin,heroin abused,cocaine dependence, seeking detox,withdrawal symptom, had admissions before, previous admission,last c 07/18/16 to 07/21/16 rehab [facility] 07/21/16 to 08/04/16 type 2 dm old fx of left elbow after [facility],surgery 2011 [facility] weight loss nicotine dependence 1/2 pack/day, longest period of sobriety 5 year plan for out patient program after treatment Allergies/Adverse Reactions: Allergies Allergy/AdvReac Type Severity Reaction Status Date / Time No Known Drug Allergies Allergy Unknown Verified 06/29/18 08:31 Fish Containing Products AdvReac Intermediate Rash Verified 06/29/18 08:31 History of Present Illness: this 37 years old male with xanax,klonopin dependence,cocaine dependencde, heroin abused,mmtp 60 mgs/day,last medicated yesterday for detox as mentionedin the chief complaint Exam Limitations: No Limitations - Ebola screening Have you traveled outside of the country in the last 21 days: No Have you had contact with anyone from an Ebola affected area: No Do you have a fever: No - Review of Systems Constitutional: Loss of Appetite, Malaise, Night Sweats, Changes in sleep, Weakness, Unintentional Wgt. Loss EENT: reports: Tearing, Nose Congestion Respiratory: reports: No Symptoms reported Cardiac: reports: No Symptoms Reported GI: reports: Nausea, Poor Appetite, Abdominal cramping : reports: No Symptoms Reported Musculoskeletal: reports: Back Pain, Muscle Pain Integumentary: reports: Dryness Neuro: reports: Headache, Tremors Endocrine: reports: No Symptoms Reported Hematology: reports: No Symptoms Reported Psychiatric: reports: No Sypmtoms Reported, Judgement Intact, Mood/Affect Appropiate, Orientated x3, other Other Systems: Reviewed and Negative Patient History - Patient Medical History Hx Anemia: No Hx Asthma: No Hx Chronic Obstructive Pulmonary Disease (COPD): No Hx Cancer: No Hx Cardiac Disorders: No Hx Congestive Heart Failure: No Hx Hypertension: No Hx Hypercholesterolemia: No Hx Pacemaker: No HX Cerebrovascular Accident: No Hx Seizures: No Hx Dementia: No Hx Diabetes: Yes (for 5 years on metformin 500 mgs po bid) Hx Gastrointestinal Disorders: No Hx Liver Disease: No Hx Genitourinary Disorders: No Hx Sexually Transmitted Disorders: No Hx Renal Disease (ESRD): No Hx Thyroid Disease: No Hx Human Immunodeficiency Virus (HIV): No Hx Hepatitis C: Yes (not treated yet) Hx Depression: Yes Hx Suicide Attempt: No Hx Bipolar Disorder: Yes (on meds, never hospitalized,did not want to see psychiatrist) Hx Schizophrenia: No Other Medical History: no suicidal,no homicidal - Patient Surgical History Past Surgical History: No Hx Neurologic Surgery: No Hx Cataract Extraction: No Hx Cardiac Surgery: No Hx Lung Surgery: No Hx Breast Surgery: No Hx Breast Biopsy: No Hx Abdominal Surgery: No Hx Appendectomy: No Hx Cholecystectomy: No Hx Genitourinary Surgery: No Hx Section: No Hx Orthopedic Surgery: Yes (left elow fx in 2012 at [facility]) Anesthesia Reaction: No - PPD History Previous Implant?: Yes Documented Results: Negative w/o proof Date: 07/20/16 Results: 0 mm PPD to be Administered?: Yes - Smoking Cessation Smoking history: Current every day smoker Have you smoked in the past 12 months: Yes Aproximately how many cigarettes per day: 10 Hx Chewing Tobacco Use: No Initiated information on smoking cessation: Yes 'Breaking Loose' booklet given: 06/29/18 - Substance & Tx. History Hx Alcohol Use: No Hx Substance Use: Yes Substance Use Type: Heroin, Tranquilizers Hx Substance Use Treatment: Yes ([facility] 07/18/16 to 07/21/16,rehab to 12/13) - Substances abused Cocaine Substance route: Injection Frequency: Daily Amount used: 6 bags Age of first use: 27 Date of last use: 06/28/18 Benzodiazepine (Klonopin) Substance route: Oral Frequency: Daily Amount used: 6mg Age of first use: 25 Date of last use: 06/28/18 Alprazolam (Xanax) Substance route: Oral Frequency: Daily Amount used: 6mg Age of first use: 25 Date of last use: 06/28/18 Heroin Substance route: Injection Frequency: Daily Amount used: 2 bags Age of first use: 20 Date of last use: 06/28/18 Family Disease History - Family Disease History Family Disease History: Diabetes: Father (alive), Heart Disease: Mother (alive) , Other: Father, Brother (one - alive ), Sister (one - alive), Daughter (age 15 - alive - no problems) Admission Physical Exam [facility] - Vital Signs Vital Signs: Vital Signs - 24 hr 06/29/18 08:32 Temperature 98.2 F Pulse Rate 50 L Respiratory 18 Rate Blood Pressure 104/69 - Physical General Appearance: Yes: Moderate Distress, Tremorous, Irritable, Sweating, Anxious HEENTM: Yes: Normal ENT Inspection, YOSEPH, Pharynx Normal Respiratory: Yes: Lungs Clear, Normal Breath Sounds, No Respiratory Distress Neck: Yes: Within Normal Limits, Supple, Trachea in good position Breast: Yes: Within Normal Limits Cardiology: Yes: Within Normal Limits, Regular Rhythm, Regular Rate, S1, S2 Abdominal: Yes: Within Normal Limits, Normal Bowel Sounds, Non Tender, Flat, Soft Genitourinary: Yes: Within Normal Limits Back: Yes: Muscle Spasm Musculoskeletal: Yes: full range of Motion, Back pain, Muscle Pain Extremities: Yes: Within Normal Limits, Normal Range of Motion, Tremors, Other ( scar left elbow) Neurological: Yes: cheese sprayer II-XII NML intact, Fully Oriented, Alert, Motor Strength 5/5 Integumentary: Yes: Dry, Track Yanez Lymphatic: Yes: Within Normal Limits - Diagnostic (1) Sedative, hypnotic or anxiolytic dependence with intoxication, uncomplicated Status: Chronic (2) Cocaine dependence Status: Acute Qualifiers: Substance use status: uncomplicated Qualified Code(s): F14.20 - Cocaine dependence, uncomplicated (3) Heroin abuse Status: Acute (4) Methadone maintenance therapy patient Status: Chronic (5) IVDU (intravenous drug user) Status: Acute (6) Bipolar disorder Status: Acute Qualifiers: Active/Remission status: remission status unspecified Qualified Code(s): F31.9 - Bipolar disorder, unspecified (7) DM2 (diabetes mellitus, type 2) Status: Acute Qualifiers: Diabetes mellitus long term care social worker insulin use: without long term care social worker use Diabetes mellitus complication status: with unspecified complications Qualified Code(s) : E11.8 - Type 2 diabetes mellitus with unspecified complications (8) Weight loss Status: Acute Cleared for Admission [facility] - Detox or Rehab S Level of Care: Medically Managed Detox Regimen/Protocol: Valium Inpatient Rehab Admission - Rehab Decision to Admit Inpatient rehab admission?: No
[2018-06-29] MEDS ORDERED: MENTHOL/PHENOL 1 EACH UD MM PRN (09:40)
[2018-06-29] MEDS ORDERED: MAGNESIUM HYDROX 2400MG/30ML ORAL SUSPENSION 30 ML CUP PO PRN (09:40)
[2018-06-29] MEDS ORDERED: ACETAMINOPHEN 325 MG TABLET (FP) PO PRN ×2 (09:40)
[2018-06-29] MEDS ORDERED: IBUPROFEN 400 MG TABLET (FP) PO PRN (09:40)
[2018-06-29] MEDS ORDERED: BISMUTH SUBSALICYLATE 524 MG/30 ML UD PO PRN (09:40)
[2018-06-29] MEDS ORDERED: MAGNESIUM CITRATE 300 ML BOTTLE PO PRN (09:40)
[2018-06-29] MEDS ORDERED: METHOCARBAMOL 500 MG TABLET PO PRN (09:40)
[2018-06-29] MEDS ORDERED: hydrOXYzine PAMOATE 25 MG CAPSULE (FP) PO PRN (09:40)
[2018-06-29] MEDS ORDERED: MELATONIN 5 MG TABLETS PO PRN (09:40)
[2018-06-29] MEDS ORDERED: MAG HYDROX/AL HYDROX/SIMETH 30 ML UNIT-DOSE CUP PO PRN (09:40)
[2018-06-29] MEDS ORDERED: METHADONE HCL 10 MG TABLET PO SCH (09:45)
[2018-06-29] MEDS: diazePAM 5 MG TABLET PO PRN (11:33)
[2018-06-29] MEDS: AMMONIUM LACTATE 12% LOTION 225 GM BOTTLE TP SCH ×2 (11:34→22:41)
[2018-06-29] MEDS: PRENATAL VITAMINS W/ FOLIC ACID TABLET (FP) PO SCH (11:34)
[2018-06-29] MEDS: diazePAM 5 MG TABLET PO SCH ×2 (13:59→22:41)
[2018-06-29 14:47] LABS: URINE APPEARANCE CLEAR; URINE BILIRUBIN NEGATIVE (NEGATIVE); URINE COLOR DK YELLOW; URINE GLUCOSE (UA) NEGATIVE (NEGATIVE); URINE KETONE NEGATIVE (NEGATIVE); URINE LEUK ESTERASE NEGATIVE (NEGATIVE); URINE NITRITE NEGATIVE (NEGATIVE); URINE PROTEIN NEGATIVE (NEGATIVE)
[2018-06-29 14:48] LABS: HEMATOCRIT 43.9 % (35.4-49); HEMOGLOBIN 14.7 GM/dL (11.7-16.9); MCH 29.6 pg (25.7-33.7); MCHC 33.5 g/dl (32.0-35.9); MEAN CELL VOLUME 88.4 fl (80-96); MEAN PLT VOLUME 7.9 fl (7.5-11.1); PLATELET COUNT 272 K/MM3 (134-434); RBC 4.97 M/mm3 (4.00-5.60); RDW 14.4 % (11.9-15.9); WHITE BLOOD COUNT 11.3 K/mm3 (4.0-10.0)
[2018-06-29 14:52] LABS: ALBUMIN 3.8 g/dl (3.4-5.0); ALK PHOS 96 U/L (45-117); ANION GAP 5 MMOL/L (8-16); BILIRUBIN,TOTAL 0.8 mg/dL (0.2-1); BLOOD UREA NITROGEN 16 mg/dL (7-18); CALCIUM 8.7 mg/dL (8.5-10.1); CHLORIDE 100 mmol/L (98-107); CO2 33 mmol/L (21-32); CREATININE 0.8 mg/dL (0.55-1.3); GLUCOSE,RANDOM 82 mg/dL (74-106); POTASSIUM 4.7 mmol/L (3.5-5.1); SGOT/AST 53 U/L (15-37); SGPT/ALT 51 U/L (13-61); SODIUM 138 mmol/L (136-145); TOT PROT 7.4 g/dl (6.4-8.2)
[2018-06-29] MEDS: metFORMIN HCL 500 MG TABLET (FP) PO SCH (18:16)
[2018-06-29] MEDS: THIAMINE HCL 100 MG TABLET (FP) PO SCH (22:41)
[2018-06-30] MEDS ORDERED: METHADONE HCL 10 MG TABLET ONE (04:35)
[2018-06-30] MEDS ORDERED: METHADONE HCL 40 MG DISPERSABLE TABLET ONE (04:36)
[2018-06-30] MEDS: diazePAM 5 MG TABLET PO SCH ×3 (05:29→23:34)
[2018-06-30] MEDS: METHADONE 40 MG, METHADONE 20 MG PO SCH (05:29)
[2018-06-30] MEDS: metFORMIN HCL 500 MG TABLET (FP) PO SCH ×2 (07:10→16:54)
[2018-06-30] MEDS: diazePAM 5 MG TABLET PO PRN ×2 (10:25→17:57)
[2018-06-30] MEDS: PRENATAL VITAMINS W/ FOLIC ACID TABLET (FP) PO SCH (10:25)
[2018-06-30] MEDS: AMMONIUM LACTATE 12% LOTION 225 GM BOTTLE TP SCH ×2 (10:25→23:34)
--- NOTE | 2018-06-30 15:36 | PN ---
S CIWA - CIWA Score Nausea/Vomitin-No Nausea/No Vomiting Muscle Tremors: None Anxiety: 2 Agitation: 1-Slight > Activity Paroxysmal Sweats: 3 Orientation: 0-Oriented Tacttile Disturbances: 1-Very Mild Itch/Numbness Auditory Disturbances: 0-None Visual Disturbances: 0-None Headache: 0-None Present CIWA-Ar Total Score: 7 BHS Progress Note (SOAP) Subjective: Sweating, Tremors, Interrupted Sleep. Objective: PATIENT A & O X 3, OBSERVED AMBULATING ON UNIT. IN NO ACUTE DISTRESS. PATIENT AFEBRILE. 06/30/18 15:34 Vital Signs Temperature 98.2 F 06/30/18 14:06 Pulse Rate 64 06/30/18 14:06 Respiratory Rate 18 06/30/18 14:06 Blood Pressure 122/77 06/30/18 14:06 O2 Sat by Pulse Oximetry (%) Laboratory Tests 06/29/18 06/29/18 06/29/18 09:42 10:25 10:25 WBC 11.3 H RBC 4.97 Hgb 14.7 Hct 43.9 MCV 88.4 MCH 29.6 MCHC 33.5 RDW 14.4 Plt Count 272 D MPV 7.9 Sodium 138 Potassium 4.7 Chloride 100 Carbon Dioxide 33 H Anion Gap 5 L BUN 16 Creatinine 0.8 Creat Clearance w eGFR 108.77 POC Glucometer 112 Random Glucose 82 Calcium 8.7 Total Bilirubin 0.8 AST 53 H ALT 51 Alkaline Phosphatase 96 Total Protein 7.4 Albumin 3.8 Urine Color Urine Appearance Urine pH Ur Specific [place] Urine Protein Urine Glucose (UA) Urine Ketones Urine Blood Urine Nitrite Urine Bilirubin Urine Urobilinogen Ur Leukocyte Esterase RPR Titer 06/29/18 06/29/18 06/29/18 10:25 10:30 15:55 WBC RBC Hgb Hct MCV MCH MCHC RDW Plt Count MPV Sodium Potassium Chloride Carbon Dioxide Anion Gap BUN Creatinine Creat Clearance w eGFR POC Glucometer 91 Random Glucose Calcium Total Bilirubin AST ALT Alkaline Phosphatase Total Protein Albumin Urine Color Dk yellow Urine Appearance Clear Urine pH 5.0 Ur Specific [place] 1.021 Urine Protein Negative Urine Glucose (UA) Negative Urine Ketones Negative Urine Blood Negative Urine Nitrite Negative Urine Bilirubin Negative Urine Urobilinogen 1.0 Ur Leukocyte Esterase Negative RPR Titer Nonreactive 06/30/18 05:29 WBC RBC Hgb Hct MCV MCH MCHC RDW Plt Count MPV Sodium Potassium Chloride Carbon Dioxide Anion Gap BUN Creatinine Creat Clearance w eGFR POC Glucometer 110 Random Glucose Calcium Total Bilirubin AST ALT Alkaline Phosphatase Total Protein Albumin Urine Color Urine Appearance Urine pH Ur Specific [place] Urine Protein Urine Glucose (UA) Urine Ketones Urine Blood Urine Nitrite Urine Bilirubin Urine Urobilinogen Ur Leukocyte Esterase RPR Titer LABS NOTED. 06/30/18 15:35 Assessment: 06/30/18 15:35 WITHDRAWAL SYMPTOMS. LEUKOCYTOSIS. 06/30/18 15:36 Plan: CONTINUE DETOX. REPEAT CBC ORDERED FOR ELEVATED WBC LEVEL - RESULTS PENDING AT THIS TIME. PATIENT SCHEDULED FOR D/C TOMORROW AM, PENDING AM MEDICAL EVALUATION AND RESULT OF REPEAT CBC (WBC COUNT).
[2018-06-30 15:56] LABS: BASO % 0.4 % (0-2.0); EOS % 4.4 % (0-4.5); HEMATOCRIT 43.9 % (35.4-49); HEMOGLOBIN 14.7 GM/dL (11.7-16.9); LYMPH % 29.9 % (8-40); MCHC 33.4 g/dl (32.0-35.9); MEAN CELL VOLUME 89.7 fl (80-96); MEAN PLT VOLUME 8.5 fl (7.5-11.1); MONO % 6.8 % (3.8-10.2); NEUT % 58.5 % (42.8-82.8); PLATELET COUNT 256 K/MM3 (134-434); RDW 14.2 % (11.9-15.9); WHITE BLOOD COUNT 11.8 K/mm3 (4.0-10.0)
--- NOTE | 2018-06-30 19:40 | PN ---
[facility] Progress Note Note: RESULTS OF REPEAT CBC NOTED. REPEAT WBC RESULT: 11.8. PATIENT AFEBRILE. VS STABLE. PATIENT HAS HISTORY OF I.V.D.U., TRACK HUIZAR NOTED ON BILATERAL FOREARMS. NO SWELLING, ERYTHEMA, OR SIGNS OF INFECTION NOTED AT AFFECTED SITES. PATIENT DENIES DYSPNEA OR SOB. PATIENT DEOS REPROTS HISTORY OF RECENT URI. ADMISSION UA RESULTS SHOW NO INDICATION OF ACTIVE INFECTION. PATIENT SCHEDULED FOR D/C TOMORROW AM. HOWEVER, PATIENT ADVISED TO HAVE REPEAT CBC AND CXR TOMORROW AM PRECAUTION TO R/O POSSIBLE INFECTION. PATIENT DECLINED TO DO SO, STATING HE DEFINITELY NEEDS TO LEAVE TOMORROW AM SO THAT HE CAN RETURN TO WORK. PATIENT ADVISED TO FOLLOW-UP WITH DIRECTOR OF SOFTWARE DEVELOPMENT DR. WILKINS ([place], [place]) SOON POSIBLE AFTER DISCHARGE FROM DETOX UNIT FOR FURTHER EVALUATION ODF ELEVATED WBC LEVELS NOTED ON ADMISSION AND ON REPEAT ASSESSMENT. PATIENT VERBALIZED UNDERSTANDING OF RECOMMENDATION. COPIES OF RESULTS OF ALL LABS DRAWN WHILE ADMITTED FOR DETOX WILL BE GIVEN TO PATIENT AT TIME OF DISCHARGE FROM DETOX UNIT TOMORROW. Myra STEPHEN NP
[2018-06-30] MEDS: THIAMINE HCL 100 MG TABLET (FP) PO SCH (23:34)
[2018-07-01] MEDS ORDERED: METHADONE HCL 10 MG TABLET ONE (04:23)
[2018-07-01] MEDS ORDERED: METHADONE HCL 40 MG DISPERSABLE TABLET ONE (04:23)
[2018-07-01] MEDS: METHADONE 40 MG, METHADONE 20 MG PO SCH (05:32)
[2018-07-01] MEDS ORDERED: diazePAM 5 MG TABLET PO ONE (06:00)
[2018-07-01 06:17] VITALS: BP 104/60; PULSE 49; TEMP 96.9
[2018-07-01] MEDS: metFORMIN HCL 500 MG TABLET (FP) PO SCH (08:09)
--- NOTE | 2018-07-01 18:08 | PN ---
S Progress Note (SOAP) Subjective: Patient Reports That Current Withdrawal Symptoms are Minimal and That He feels Well Overall. Objective: PATIENT A & O X 3, OBSERVED AMBULATING ON UNIT. IN NO ACUTE DISTRESS. 07/01/18 18:07 Vital Signs Temperature 96.9 F L 07/01/18 06:16 Pulse Rate 49 L 07/01/18 06:16 Respiratory Rate 18 07/01/18 06:16 Blood Pressure 104/60 07/01/18 06:16 O2 Sat by Pulse Oximetry (%) Laboratory Tests 06/29/18 06/29/18 06/29/18 09:42 10:25 10:25 WBC 11.3 H RBC 4.97 Hgb 14.7 Hct 43.9 MCV 88.4 MCH 29.6 MCHC 33.5 RDW 14.4 Plt Count 272 D MPV 7.9 Absolute Neuts (auto) Neutrophils % Lymphocytes % Monocytes % Eosinophils % Basophils % Nucleated RBC % Sodium 138 Potassium 4.7 Chloride 100 Carbon Dioxide 33 H Anion Gap 5 L BUN 16 Creatinine 0.8 Creat Clearance w eGFR 108.77 POC Glucometer 112 Random Glucose 82 Calcium 8.7 Total Bilirubin 0.8 AST 53 H ALT 51 Alkaline Phosphatase 96 Total Protein 7.4 Albumin 3.8 Urine Color Urine Appearance Urine pH Ur Specific [place] Urine Protein Urine Glucose (UA) Urine Ketones Urine Blood Urine Nitrite Urine Bilirubin Urine Urobilinogen Ur Leukocyte Esterase RPR Titer 06/29/18 06/29/18 06/29/18 10:25 10:30 15:55 WBC RBC Hgb Hct MCV MCH MCHC RDW Plt Count MPV Absolute Neuts (auto) Neutrophils % Lymphocytes % Monocytes % Eosinophils % Basophils % Nucleated RBC % Sodium Potassium Chloride Carbon Dioxide Anion Gap BUN Creatinine Creat Clearance w eGFR POC Glucometer 91 Random Glucose Calcium Total Bilirubin AST ALT Alkaline Phosphatase Total Protein Albumin Urine Color Dk yellow Urine Appearance Clear Urine pH 5.0 Ur Specific [place] 1.021 Urine Protein Negative Urine Glucose (UA) Negative Urine Ketones Negative Urine Blood Negative Urine Nitrite Negative Urine Bilirubin Negative Urine Urobilinogen 1.0 Ur Leukocyte Esterase Negative RPR Titer Nonreactive 06/30/18 06/30/18 06/30/18 05:29 11:30 16:23 WBC 11.8 H RBC 4.90 Hgb 14.7 Hct 43.9 MCV 89.7 MCH 30.0 MCHC 33.4 RDW 14.2 Plt Count 256 MPV 8.5 Absolute Neuts (auto) 6.9 Neutrophils % 58.5 Lymphocytes % 29.9 Monocytes % 6.8 Eosinophils % 4.4 Basophils % 0.4 Nucleated RBC % 0 Sodium Potassium Chloride Carbon Dioxide Anion Gap BUN Creatinine Creat Clearance w eGFR POC Glucometer 110 110 Random Glucose Calcium Total Bilirubin AST ALT Alkaline Phosphatase Total Protein Albumin Urine Color Urine Appearance Urine pH Ur Specific [place] Urine Protein Urine Glucose (UA) Urine Ketones Urine Blood Urine Nitrite Urine Bilirubin Urine Urobilinogen Ur Leukocyte Esterase RPR Titer 07/01/18 05:33 WBC RBC Hgb Hct MCV MCH MCHC RDW Plt Count MPV Absolute Neuts (auto) Neutrophils % Lymphocytes % Monocytes % Eosinophils % Basophils % Nucleated RBC % Sodium Potassium Chloride Carbon Dioxide Anion Gap BUN Creatinine Creat Clearance w eGFR POC Glucometer 116 Random Glucose Calcium Total Bilirubin AST ALT Alkaline Phosphatase Total Protein Albumin Urine Color Urine Appearance Urine pH Ur Specific [place] Urine Protein Urine Glucose (UA) Urine Ketones Urine Blood Urine Nitrite Urine Bilirubin Urine Urobilinogen Ur Leukocyte Esterase RPR Titer LABS NOTED. Assessment: 07/01/18 18:07 COMPLETION OF DETOX REGIMEN. Plan: PATIENT SCHEDULED FOR D/C FROM DETOX UNIT TODAY.
--- NOTE | 2018-07-01 18:18 | DS ---
[facility] Detox Discharge Summary Admission Date: 06/29/18 Discharge Date: 07/01/18 - History Present History: Cocaine Dependence, Opioid Dependence, Sedative Dependence, MMTP Additional Comments: PATIENT REPORTS THAT CURRENT WITHDRAWAL / DETOX SYMPTOMS ARE MINIMAL IN DEGREE AND REPORTS THAT HE FEELS WELL OVERALL AT TIME OF DISCHARGE FROM DETOX UNIT. PATIENT DENIES ANY UNUSUAL URINARY COMPLAINTS (BURNING, PAIN, FREQUENCY, URGENCY , HESITANCY) AT TIME OF DISCHARGE FROM DETOX UNIT. PATIENT DENIES DYSPNEA AND SOB AT TIME OF DISCHARGE FROM DETOX UNIT. PATIENT SCHEDULED FOR DISCAHRGE FROM DETOX UNIT TODAY AND RETURNING HOME AND TO WORK. PATIENT AGAIN ADVISED TO CONSIDER HAVING REPEAT CBC DONE AND CXR DONE AT [facility] PRIOR TO LEAVING DETOX UNIT A PRECAUTION FOR MILDLY ELEVATED WBC LEVEL NOTED ON ADMISSION AND ON REPEAT LABORATORY ASSESSMENT. HOWEVER, PATIENT DECLINES TO DO SO, NOTING THAT HE NEEDS TO GET HOME AND RETURN TO WORK QUICKLY. PATIENT ADVISED TO FOLLOW-UP WITH FIELD INSURANCE SALES MANAGER DR. WILKINS ([place], [place]) SOON POSSIBLE AFTER DISCHARGE FROM DETOX UNIT FOR GENERAL MEDICAL ASSESSMENT AND FOR ELEVATED WBC LEVELS NOTED ON DETOX ADMISSION AND REPEAT LABORATORY ASSESSMENTS. (SEE PREVIOUS [facility] PROGRESS NOTE FOR 06/30/2018). COPIES OF RESULTS OF ALL LABS DRAWN WHILE ADMITTED FOR DETOX GIVEN TO PATIENT AT TIME OF DISCHARGE FROM DETOX UNIT. PATIENT WILL RETURN TO PREVIOUS [facility] FOR AFTERCARE. PATIENT ALSO ADVISED TO CONSIDER LOCAL 12-STEP / NA / AA OUTPATIENT SUPPORT GROUP PROGRAMS FOR AFTERCARE. PATIENT VERBALIZED UNDERSTANDING OF ALL RECOMMENDATIONS PRESENTED TO HIM TODAY. PATIENT DECLINED OFFER OF MEDICATION ( METFORMIN) PRESCRIPTION FOR HOME MEDICATION AT TIME OF DISCHARGE FROM DETOX, NOTING THAT HE CURRENTLY HAS ADEQUATE SUPPLIES OF ALL PRESCRIBED HOME MEDICATIONS AT HOME. Pertinent Past History: Type II DM, Hep C, Depression, Bipolar Disorder, M.M.T.P., Intravenous Drug User (I.V.D.U.), Leukocytosis, Weight Loss. - Physical Exam Results Vital Signs: Vital Signs Temperature 96.9 F L 07/01/18 06:16 Pulse Rate 49 L 07/01/18 06:16 Respiratory Rate 18 07/01/18 06:16 Blood Pressure 104/60 07/01/18 06:16 O2 Sat by Pulse Oximetry (%) Pertinent Admission Physical Exam Findings: WITHDRAWAL SYMPTOMS. Laboratory Tests 06/29/18 06/29/18 06/29/18 09:42 10:25 10:25 WBC 11.3 H RBC 4.97 Hgb 14.7 Hct 43.9 MCV 88.4 MCH 29.6 MCHC 33.5 RDW 14.4 Plt Count 272 D MPV 7.9 Absolute Neuts (auto) Neutrophils % Lymphocytes % Monocytes % Eosinophils % Basophils % Nucleated RBC % Sodium 138 Potassium 4.7 Chloride 100 Carbon Dioxide 33 H Anion Gap 5 L BUN 16 Creatinine 0.8 Creat Clearance w eGFR 108.77 POC Glucometer 112 Random Glucose 82 Calcium 8.7 Total Bilirubin 0.8 AST 53 H ALT 51 Alkaline Phosphatase 96 Total Protein 7.4 Albumin 3.8 Urine Color Urine Appearance Urine pH Ur Specific [place] Urine Protein Urine Glucose (UA) Urine Ketones Urine Blood Urine Nitrite Urine Bilirubin Urine Urobilinogen Ur Leukocyte Esterase RPR Titer 06/29/18 06/29/18 06/29/18 10:25 10:30 15:55 WBC RBC Hgb Hct MCV MCH MCHC RDW Plt Count MPV Absolute Neuts (auto) Neutrophils % Lymphocytes % Monocytes % Eosinophils % Basophils % Nucleated RBC % Sodium Potassium Chloride Carbon Dioxide Anion Gap BUN Creatinine Creat Clearance w eGFR POC Glucometer 91 Random Glucose Calcium Total Bilirubin AST ALT Alkaline Phosphatase Total Protein Albumin Urine Color Dk yellow Urine Appearance Clear Urine pH 5.0 Ur Specific [place] 1.021 Urine Protein Negative Urine Glucose (UA) Negative Urine Ketones Negative Urine Blood Negative Urine Nitrite Negative Urine Bilirubin Negative Urine Urobilinogen 1.0 Ur Leukocyte Esterase Negative RPR Titer Nonreactive 06/30/18 06/30/18 06/30/18 05:29 11:30 16:23 WBC 11.8 H RBC 4.90 Hgb 14.7 Hct 43.9 MCV 89.7 MCH 30.0 MCHC 33.4 RDW 14.2 Plt Count 256 MPV 8.5 Absolute Neuts (auto) 6.9 Neutrophils % 58.5 Lymphocytes % 29.9 Monocytes % 6.8 Eosinophils % 4.4 Basophils % 0.4 Nucleated RBC % 0 Sodium Potassium Chloride Carbon Dioxide Anion Gap BUN Creatinine Creat Clearance w eGFR POC Glucometer 110 110 Random Glucose Calcium Total Bilirubin AST ALT Alkaline Phosphatase Total Protein Albumin Urine Color Urine Appearance Urine pH Ur Specific [place] Urine Protein Urine Glucose (UA) Urine Ketones Urine Blood Urine Nitrite Urine Bilirubin Urine Urobilinogen Ur Leukocyte Esterase RPR Titer 07/01/18 05:33 WBC RBC Hgb Hct MCV MCH MCHC RDW Plt Count MPV Absolute Neuts (auto) Neutrophils % Lymphocytes % Monocytes % Eosinophils % Basophils % Nucleated RBC % Sodium Potassium Chloride Carbon Dioxide Anion Gap BUN Creatinine Creat Clearance w eGFR POC Glucometer 116 Random Glucose Calcium Total Bilirubin AST ALT Alkaline Phosphatase Total Protein Albumin Urine Color Urine Appearance Urine pH Ur Specific [place] Urine Protein Urine Glucose (UA) Urine Ketones Urine Blood Urine Nitrite Urine Bilirubin Urine Urobilinogen Ur Leukocyte Esterase RPR Titer LABS NOTED. - Treatment Hospital Course: Detox Protocol Followed, Detoxed Safely, Responded well, Discharged Condition Good Patient has Accepted a Rehab [facility] - Medication Discharge Medications: Ambulatory Orders Metformin HCl [Glucophage] 500 mg PO BID 06/29/18 - Diagnosis (1) Bipolar disorder Status: Acute Qualifiers: Active/Remission status: remission status unspecified Qualified Code(s): F31.9 - Bipolar disorder, unspecified (2) Cocaine dependence Status: Acute Qualifiers: Substance use status: uncomplicated Qualified Code(s): F14.20 - Cocaine dependence, uncomplicated (3) DM2 (diabetes mellitus, type 2) Status: Acute Qualifiers: Diabetes mellitus [facility] insulin use: without middle or intermediate school principal use Diabetes mellitus complication status: with unspecified complications Qualified Code(s) : E11.8 - Type 2 diabetes mellitus with unspecified complications (4) Heroin abuse Status: Acute (5) IVDU (intravenous drug user) Status: Acute (6) Leukocytosis Status: Acute Qualifiers: Leukocytosis type: unspecified Qualified Code(s): D72.829 - Elevated white blood cell count, unspecified (7) Methadone maintenance therapy patient Status: Chronic (8) Weight loss Status: Acute (9) Sedative, hypnotic or anxiolytic dependence with intoxication, uncomplicated Status: Chronic - AMA Did Patient Leave Against Medical Advice: No
== END 2018-07-01 08:57 | disposition home or self-care (01) | DRG 773 ==
LOC: YASAS 08:08 → Y3N 09:49
PROVIDERS: ADMIT Surgery; ATTEND Surgery
PROC: HZ2ZZZZ Detoxification Services for Substance Abuse Treatment (ICD-10-PCS; principal; 2018-06-29)
DX: F13.230 Sedative, hypnotic or anxiolytic dependence with withdrawal, uncomplicated (principal); F14.20 Cocaine dependence, uncomplicated; F11.20 Opioid dependence, uncomplicated; F31.9 Bipolar disorder, unspecified; E11.9 Type 2 diabetes mellitus without complications; Z79.84 Long term (current) use of oral hypoglycemic drugs; M62.830 Muscle spasm of back; R63.4 Abnormal weight loss; Z68.25 Body mass index [BMI] 25.0-25.9, adult
CPT/HCPCS: 36415; 80053; 81003; 82962; 85025; 85027; 86593

== ENCOUNTER 2021-09-23 12:07 | Inpatient (IN) | payer OTHER ==
[2021-09-23 13:14] VITALS: BMI 20.9
[2021-09-23] MEDS ORDERED: IBUPROFEN 600 MG TABLET (FP) PO PRN (13:53)
[2021-09-23] MEDS ORDERED: MAGNESIUM CITRATE 300 ML BOTTLE PO PRN (13:53)
[2021-09-23] MEDS ORDERED: ACETAMINOPHEN 325 MG TABLET (FP) PO PRN ×2 (13:53)
[2021-09-23] MEDS ORDERED: NALOXONE HCL (KLOXXADO) 8 MG SPRAY NS PRN (13:53)
[2021-09-23] MEDS ORDERED: LOPERAMIDE HCL 2 MG CAPSULE PO PRN (13:53)
[2021-09-23] MEDS ORDERED: NICOTINE 10 MG CARTRIDGE (INHALER) IH PRN (13:53)
[2021-09-23] MEDS ORDERED: ONDANSETRON *ODT* 4 MG TABLET SL PRN (13:53)
[2021-09-23] MEDS ORDERED: IBUPROFEN 400 MG TABLET (FP) PO PRN (13:53)
[2021-09-23] MEDS ORDERED: MAGNESIUM HYDROX 2400MG/30ML ORAL SUSPENSION 30 ML CUP PO PRN (13:53)
[2021-09-23] MEDS ORDERED: BENZOCAINE/MENTHOL (CHLORASEPTIC ) LOZENGE MM PRN (13:53)
[2021-09-23] MEDS ORDERED: DICYCLOMINE HCL 10 MG CAPSULE PO PRN (13:53)
[2021-09-23] MEDS ORDERED: MAG HYDROX/AL HYDROX/SIMETH 30 ML UNIT-DOSE CUP PO PRN (13:53)
[2021-09-23] MEDS ORDERED: BISMUTH SUBSALICYLATE 524 MG/30 ML PO PRN (13:53)
[2021-09-23] MEDS ORDERED: IBUPROFEN 400 MG TABLET (FP) PO ONE (14:31)
[2021-09-23] MEDS ORDERED: diazePAM 5 MG TABLET ONE (14:31)
[2021-09-23] MEDS ORDERED: hydrOXYzine PAMOATE 25 MG CAPSULE (FP) PO ONE (14:31)
[2021-09-23] MEDS ORDERED: NICOTINE 21 MG/24 HOURS TOPICAL PATCH ONE (14:31)
[2021-09-23] MEDS: NICOTINE 21 MG/24 HOURS TOPICAL PATCH TD SCH (14:38)
[2021-09-23] MEDS: hydrOXYzine PAMOATE 25 MG CAPSULE (FP) PO SCH ×3 (14:38→22:47)
[2021-09-23] MEDS: diazePAM 5 MG TABLET PO PRN (14:39)
[2021-09-23] MEDS: SILVER SULFADIAZINE 1% TOP CREAM 50 GM JAR TP SCH (15:29)
[2021-09-23 17:37] LABS: HEMATOCRIT 38.2 % (35.4-49); MCH 29.2 pg (25.7-33.7); MEAN PLT VOLUME 7.6 fl (7.5-11.1); PLATELET COUNT 293 10^3/uL (134-434); RBC 4.45 M/mm3 (4.00-5.60); RDW 14.6 % (11.9-15.9); WHITE BLOOD COUNT 8.4 K/mm3 (4.0-10.0)
[2021-09-23 17:40] LABS: BLOOD UREA NITROGEN 10.7 mg/dL (7-18); CALCIUM 9.2 mg/dL (8.5-10.1)
[2021-09-23 17:43] LABS: CREATININE 0.7 mg/dL (0.55-1.3)
[2021-09-23 17:45] LABS: BILIRUBIN,TOTAL 0.5 mg/dL (0.2-1); TOT PROT 7.9 g/dl (6.4-8.2)
[2021-09-23] MEDS: DOXYCYCLINE HYCLATE 100 MG TABLET PO SCH (17:59)
[2021-09-23] MEDS: diazePAM 5 MG TABLET PO SCH ×2 (17:59→22:47)
[2021-09-23] MEDS: INSULIN SLIDING SCALE (NOVOLOG) 1 VIAL SQ SCH (19:41)
[2021-09-23] MEDS ORDERED: BACITRACIN 15 GM TUBE TOPICAL OINTMENT TP SCH (22:00)
[2021-09-23] MEDS: THIAMINE HCL 100 MG TABLET (FP) PO SCH (22:47)
[2021-09-23] MEDS: MELATONIN 5 MG TABLETS PO SCH (22:47)
[2021-09-24] MEDS: diazePAM 5 MG TABLET PO SCH ×4 (05:38→22:12)
[2021-09-24] MEDS: hydrOXYzine PAMOATE 25 MG CAPSULE (FP) PO SCH ×5 (05:38→22:28)
[2021-09-24] MEDS: INSULIN SLIDING SCALE (NOVOLOG) 1 VIAL SQ SCH ×2 (07:13→17:51)
[2021-09-24] MEDS ORDERED: methaDONE HCL 10 MG TABLET PO ONE (08:44)
[2021-09-24] MEDS: methaDONE HCL 40 MG DISPERSABLE TABLET PO SCH (10:02)
[2021-09-24] MEDS: DOXYCYCLINE HYCLATE 100 MG TABLET PO SCH ×2 (10:03→18:07)
[2021-09-24] MEDS: PRENATAL VITAMINS W/ FOLIC ACID TABLET (FP) PO SCH (10:03)
[2021-09-24] MEDS: SILVER SULFADIAZINE 1% TOP CREAM 50 GM JAR TP SCH (10:04)
[2021-09-24] MEDS: NICOTINE 21 MG/24 HOURS TOPICAL PATCH TD SCH (10:04)
[2021-09-24] MEDS ORDERED: INSULIN (NOVOLOG) ASPART 100 UNITS/ML 10ML VIAL ONE (16:54)
[2021-09-24] MEDS: MELATONIN 5 MG TABLETS PO SCH (22:12)
[2021-09-24] MEDS: THIAMINE HCL 100 MG TABLET (FP) PO SCH (22:12)
[2021-09-25] MEDS: hydrOXYzine PAMOATE 25 MG CAPSULE (FP) PO SCH ×5 (05:58→22:55)
[2021-09-25] MEDS: diazePAM 5 MG TABLET PO SCH ×3 (05:58→22:55)
[2021-09-25] MEDS: methaDONE HCL 40 MG DISPERSABLE TABLET PO SCH (05:58)
[2021-09-25] MEDS ORDERED: INSULIN (NOVOLOG) ASPART 100 UNITS/ML 10ML VIAL ONE ×2 (05:58→17:34)
[2021-09-25] MEDS: INSULIN SLIDING SCALE (NOVOLOG) 1 VIAL SQ SCH ×2 (07:00→16:26)
[2021-09-25] MEDS: diazePAM 5 MG TABLET PO PRN ×2 (10:28→18:25)
[2021-09-25] MEDS: NICOTINE 21 MG/24 HOURS TOPICAL PATCH TD SCH (10:28)
[2021-09-25] MEDS: METHOCARBAMOL 500 MG TABLET PO PRN ×2 (10:28→18:26)
[2021-09-25] MEDS: DOXYCYCLINE HYCLATE 100 MG TABLET PO SCH ×2 (10:28→18:25)
[2021-09-25] MEDS: PRENATAL VITAMINS W/ FOLIC ACID TABLET (FP) PO SCH (10:28)
[2021-09-25] MEDS: SILVER SULFADIAZINE 1% TOP CREAM 50 GM JAR TP SCH (10:29)
[2021-09-25] MEDS: SERTRALINE HCL 50 MG TABLET (FP) PO SCH (15:37)
[2021-09-25] MEDS: ARIPiprazole 10 MG TABLET PO SCH (22:55)
[2021-09-25] MEDS: MELATONIN 5 MG TABLETS PO SCH (22:55)
[2021-09-25] MEDS: THIAMINE HCL 100 MG TABLET (FP) PO SCH (22:55)
[2021-09-26] MEDS: diazePAM 5 MG TABLET PO SCH ×2 (06:21→17:41)
[2021-09-26] MEDS: methaDONE HCL 40 MG DISPERSABLE TABLET PO SCH (06:21)
[2021-09-26] MEDS: hydrOXYzine PAMOATE 25 MG CAPSULE (FP) PO SCH ×5 (06:23→22:29)
[2021-09-26] MEDS: INSULIN SLIDING SCALE (NOVOLOG) 1 VIAL SQ SCH ×2 (08:00→17:39)
[2021-09-26] MEDS ORDERED: SERTRALINE HCL 50 MG TABLET (FP) PO SCH (10:00)
[2021-09-26] MEDS: SERTRALINE HCL 50 MG TABLET (FP) PO SCH (10:15)
[2021-09-26] MEDS: NICOTINE 21 MG/24 HOURS TOPICAL PATCH TD SCH (10:15)
[2021-09-26] MEDS: METHOCARBAMOL 500 MG TABLET PO PRN (10:15)
[2021-09-26] MEDS: PRENATAL VITAMINS W/ FOLIC ACID TABLET (FP) PO SCH (10:15)
[2021-09-26] MEDS: diazePAM 5 MG TABLET PO PRN (10:16)
[2021-09-26] MEDS: SILVER SULFADIAZINE 1% TOP CREAM 50 GM JAR TP SCH (10:16)
[2021-09-26] MEDS: DOXYCYCLINE HYCLATE 100 MG TABLET PO SCH ×2 (10:16→17:42)
[2021-09-26] MEDS: ARIPiprazole 10 MG TABLET PO SCH (22:29)
[2021-09-26] MEDS: THIAMINE HCL 100 MG TABLET (FP) PO SCH (22:29)
[2021-09-26] MEDS: MELATONIN 5 MG TABLETS PO SCH (22:30)
[2021-09-27] MEDS: methaDONE HCL 40 MG DISPERSABLE TABLET PO SCH (05:53)
[2021-09-27] MEDS: hydrOXYzine PAMOATE 25 MG CAPSULE (FP) PO SCH ×5 (05:58→22:28)
[2021-09-27] MEDS ORDERED: diazePAM 5 MG TABLET PO ONE (06:00)
[2021-09-27] MEDS: INSULIN SLIDING SCALE (NOVOLOG) 1 VIAL SQ SCH ×2 (07:26→17:03)
[2021-09-27] MEDS: PRENATAL VITAMINS W/ FOLIC ACID TABLET (FP) PO SCH (10:05)
[2021-09-27] MEDS: SERTRALINE HCL 50 MG TABLET (FP) PO SCH (10:05)
[2021-09-27] MEDS: NICOTINE 21 MG/24 HOURS TOPICAL PATCH TD SCH (10:06)
[2021-09-27] MEDS: DOXYCYCLINE HYCLATE 100 MG TABLET PO SCH ×2 (10:07→17:04)
[2021-09-27] MEDS: SILVER SULFADIAZINE 1% TOP CREAM 50 GM JAR TP SCH (10:08)
[2021-09-27] MEDS: ARIPiprazole 10 MG TABLET PO SCH (22:28)
[2021-09-27] MEDS: MELATONIN 5 MG TABLETS PO SCH (22:28)
[2021-09-27] MEDS: THIAMINE HCL 100 MG TABLET (FP) PO SCH (22:29)
[2021-09-28] MEDS: methaDONE HCL 40 MG DISPERSABLE TABLET PO SCH (05:59)
[2021-09-28] MEDS: INSULIN SLIDING SCALE (NOVOLOG) 1 VIAL SQ SCH (06:02)
[2021-09-28] MEDS: hydrOXYzine PAMOATE 25 MG CAPSULE (FP) PO SCH ×2 (06:02→10:28)
[2021-09-28 06:37] VITALS: PULSE 70
[2021-09-28 09:21] VITALS: BP 102/64; TEMP 98.1
[2021-09-28] MEDS: NICOTINE 21 MG/24 HOURS TOPICAL PATCH TD SCH (10:26)
[2021-09-28] MEDS: SERTRALINE HCL 50 MG TABLET (FP) PO SCH (10:28)
[2021-09-28] MEDS: SILVER SULFADIAZINE 1% TOP CREAM 50 GM JAR TP SCH (10:28)
[2021-09-28] MEDS: DOXYCYCLINE HYCLATE 100 MG TABLET PO SCH (10:28)
[2021-09-28] MEDS: PRENATAL VITAMINS W/ FOLIC ACID TABLET (FP) PO SCH (10:28)
== END 2021-09-28 13:14 | disposition other institution (70) | DRG 773 ==
LOC: YASAS 12:07 → Y6N 14:12
PROVIDERS: ADMIT Allergy & Immunology; ATTEND Surgery
PROC: HZ2ZZZZ Detoxification Services for Substance Abuse Treatment (ICD-10-PCS; principal; 2021-09-23)
DX: F10.230 Alcohol dependence with withdrawal, uncomplicated (principal); F13.230 Sedative, hypnotic or anxiolytic dependence with withdrawal, uncomplicated; F11.20 Opioid dependence, uncomplicated; F14.20 Cocaine dependence, uncomplicated; F17.220 Nicotine dependence, chewing tobacco, uncomplicated; F25.1 Schizoaffective disorder, depressive type; F31.9 Bipolar disorder, unspecified; E11.9 Type 2 diabetes mellitus without complications; Z79.84 Long term (current) use of oral hypoglycemic drugs; R76.8 Other specified abnormal immunological findings in serum; R63.4 Abnormal weight loss; Z68.20 Body mass index [BMI] 20.0-20.9, adult
CPT/HCPCS: 36415; 80053; 82962; 85027; 86780; 87811; C9803-CS; U0003; U0005

== ENCOUNTER 2021-09-28 10:33 | Inpatient (IN) | payer OTHER ==
[2021-09-28] MEDS ORDERED: MAGNESIUM CITRATE 300 ML BOTTLE PO PRN (13:58)
[2021-09-28] MEDS ORDERED: ACETAMINOPHEN 325 MG TABLET (FP) PO PRN (13:58)
[2021-09-28] MEDS ORDERED: MAG HYDROX/AL HYDROX/SIMETH 30 ML UNIT-DOSE CUP PO PRN (13:58)
[2021-09-28] MEDS ORDERED: guaiFENesin 200 MG/10 ML 10 ML UNIT-DOSE CUPS PO PRN (13:58)
[2021-09-28] MEDS ORDERED: P-EPHED 60MG/TRIPROLIDI 2.5MG TABLET PO PRN (13:58)
[2021-09-28] MEDS ORDERED: MAGNESIUM HYDROX 2400MG/30ML ORAL SUSPENSION 30 ML CUP PO PRN (13:58)
[2021-09-28] MEDS ORDERED: IBUPROFEN 400 MG TABLET (FP) PO PRN (13:58)
[2021-09-28] MEDS ORDERED: NICOTINE POLACRILEX 4 MG GUM BC PRN (13:58)
[2021-09-28] MEDS ORDERED: LOPERAMIDE HCL 2 MG CAPSULE PO PRN (13:58)
[2021-09-28] MEDS: DOXYCYCLINE HYCLATE 100 MG CAPSULE PO SCH (18:10)
[2021-09-28] MEDS: MELATONIN 5 MG TABLETS PO SCH (21:19)
[2021-09-28] MEDS: THIAMINE HCL 100 MG TABLET (FP) PO SCH (21:19)
[2021-09-28] MEDS: ARIPiprazole 10 MG TABLET PO SCH (21:19)
[2021-09-29] MEDS: methaDONE HCL 40 MG DISPERSABLE TABLET PO SCH (06:37)
[2021-09-29] MEDS: NICOTINE 10 MG CARTRIDGE (INHALER) IH PRN ×2 (06:39→10:36)
[2021-09-29] MEDS: DOXYCYCLINE HYCLATE 100 MG CAPSULE PO SCH ×2 (10:35→19:12)
[2021-09-29] MEDS: SERTRALINE HCL 50 MG TABLET (FP) PO SCH (10:35)
[2021-09-29] MEDS: PRENATAL VITAMINS W/ FOLIC ACID TABLET (FP) PO SCH (10:35)
[2021-09-29] MEDS: NICOTINE 21 MG/24 HOURS TOPICAL PATCH TD SCH (10:36)
[2021-09-29] MEDS: SILVER SULFADIAZINE 1% TOP CREAM 400 GM JAR TP SCH (12:10)
[2021-09-29] MEDS: THIAMINE HCL 100 MG TABLET (FP) PO SCH (22:01)
[2021-09-29] MEDS: ARIPiprazole 10 MG TABLET PO SCH (22:01)
[2021-09-29] MEDS: MELATONIN 5 MG TABLETS PO SCH (22:01)
[2021-09-30] MEDS: methaDONE HCL 40 MG DISPERSABLE TABLET PO SCH (06:26)
[2021-09-30] MEDS: PRENATAL VITAMINS W/ FOLIC ACID TABLET (FP) PO SCH (07:03)
[2021-09-30] MEDS: NICOTINE 21 MG/24 HOURS TOPICAL PATCH TD SCH (10:10)
[2021-09-30] MEDS: SILVER SULFADIAZINE 1% TOP CREAM 400 GM JAR TP SCH (10:12)
[2021-09-30] MEDS: DOXYCYCLINE HYCLATE 100 MG CAPSULE PO SCH ×2 (10:12→18:50)
[2021-09-30] MEDS: SERTRALINE HCL 50 MG TABLET (FP) PO SCH (10:12)
[2021-09-30] MEDS: ARIPiprazole 10 MG TABLET PO SCH (23:09)
[2021-09-30] MEDS: THIAMINE HCL 100 MG TABLET (FP) PO SCH (23:09)
[2021-09-30] MEDS: MELATONIN 5 MG TABLETS PO SCH (23:09)
[2021-10-01] MEDS: methaDONE HCL 40 MG DISPERSABLE TABLET PO SCH (06:08)
[2021-10-01] MEDS: PRENATAL VITAMINS W/ FOLIC ACID TABLET (FP) PO SCH (07:22)
[2021-10-01] MEDS: SILVER SULFADIAZINE 1% TOP CREAM 400 GM JAR TP SCH (10:15)
[2021-10-01] MEDS: SERTRALINE HCL 50 MG TABLET (FP) PO SCH (10:15)
[2021-10-01] MEDS: DOXYCYCLINE HYCLATE 100 MG CAPSULE PO SCH ×2 (10:15→17:51)
[2021-10-01] MEDS: NICOTINE 21 MG/24 HOURS TOPICAL PATCH TD SCH (10:17)
[2021-10-01] MEDS: MELATONIN 5 MG TABLETS PO SCH (23:20)
[2021-10-01] MEDS: THIAMINE HCL 100 MG TABLET (FP) PO SCH (23:20)
[2021-10-01] MEDS: BACITRACIN 0.9 GM PACKET TP SCH (23:20)
[2021-10-01] MEDS: ARIPiprazole 10 MG TABLET PO SCH (23:20)
[2021-10-02] MEDS: methaDONE HCL 40 MG DISPERSABLE TABLET PO SCH (06:13)
[2021-10-02] MEDS: PRENATAL VITAMINS W/ FOLIC ACID TABLET (FP) PO SCH (08:08)
[2021-10-02] MEDS: DOXYCYCLINE HYCLATE 100 MG CAPSULE PO SCH ×2 (10:06→17:37)
[2021-10-02] MEDS: BACITRACIN 0.9 GM PACKET TP SCH ×2 (10:06→21:39)
[2021-10-02] MEDS: SERTRALINE HCL 50 MG TABLET (FP) PO SCH (10:06)
[2021-10-02] MEDS: NICOTINE 21 MG/24 HOURS TOPICAL PATCH TD SCH (10:07)
[2021-10-02] MEDS: MELATONIN 5 MG TABLETS PO SCH (21:39)
[2021-10-02] MEDS: THIAMINE HCL 100 MG TABLET (FP) PO SCH (21:39)
[2021-10-02] MEDS: ARIPiprazole 10 MG TABLET PO SCH (21:39)
[2021-10-03] MEDS: methaDONE HCL 40 MG DISPERSABLE TABLET PO SCH (06:30)
[2021-10-03] MEDS: PRENATAL VITAMINS W/ FOLIC ACID TABLET (FP) PO SCH (07:02)
[2021-10-03] MEDS: NICOTINE 21 MG/24 HOURS TOPICAL PATCH TD SCH (10:14)
[2021-10-03] MEDS: SERTRALINE HCL 50 MG TABLET (FP) PO SCH (10:14)
[2021-10-03] MEDS: BACITRACIN 0.9 GM PACKET TP SCH ×2 (10:15→22:58)
[2021-10-03] MEDS: DOXYCYCLINE HYCLATE 100 MG CAPSULE PO SCH ×2 (10:15→19:20)
[2021-10-03] MEDS: NICOTINE 10 MG CARTRIDGE (INHALER) IH PRN (13:07)
[2021-10-03] MEDS: hydrOXYzine PAMOATE 25 MG CAPSULE (FP) PO PRN (22:57)
[2021-10-03] MEDS: THIAMINE HCL 100 MG TABLET (FP) PO SCH (22:57)
[2021-10-03] MEDS: ARIPiprazole 10 MG TABLET PO SCH (22:57)
[2021-10-03] MEDS: MELATONIN 5 MG TABLETS PO SCH (22:58)
[2021-10-04] MEDS: methaDONE HCL 40 MG DISPERSABLE TABLET PO SCH (05:55)
[2021-10-04] MEDS: PRENATAL VITAMINS W/ FOLIC ACID TABLET (FP) PO SCH (07:04)
[2021-10-04] MEDS: SERTRALINE HCL 50 MG TABLET (FP) PO SCH (11:30)
[2021-10-04] MEDS: NICOTINE 21 MG/24 HOURS TOPICAL PATCH TD SCH (11:30)
[2021-10-04] MEDS: BACITRACIN 0.9 GM PACKET TP SCH ×2 (11:30→21:33)
[2021-10-04] MEDS: NICOTINE 10 MG CARTRIDGE (INHALER) IH PRN (11:31)
[2021-10-04] MEDS: ARIPiprazole 10 MG TABLET PO SCH (21:33)
[2021-10-04] MEDS: THIAMINE HCL 100 MG TABLET (FP) PO SCH (21:33)
[2021-10-04] MEDS: MELATONIN 5 MG TABLETS PO SCH (21:33)
[2021-10-05] MEDS: methaDONE HCL 40 MG DISPERSABLE TABLET PO SCH (06:23)
[2021-10-05] MEDS: PRENATAL VITAMINS W/ FOLIC ACID TABLET (FP) PO SCH (07:04)
[2021-10-05] MEDS: NICOTINE 10 MG CARTRIDGE (INHALER) IH PRN (08:38)
[2021-10-05] MEDS: BACITRACIN 0.9 GM PACKET TP SCH ×2 (10:08→22:12)
[2021-10-05] MEDS: NICOTINE 21 MG/24 HOURS TOPICAL PATCH TD SCH (10:08)
[2021-10-05] MEDS: SERTRALINE HCL 50 MG TABLET (FP) PO SCH (10:08)
[2021-10-05] MEDS: MELATONIN 5 MG TABLETS PO SCH (22:12)
[2021-10-05] MEDS: ARIPiprazole 10 MG TABLET PO SCH (22:12)
[2021-10-05] MEDS: THIAMINE HCL 100 MG TABLET (FP) PO SCH (22:13)
[2021-10-06] MEDS: methaDONE HCL 40 MG DISPERSABLE TABLET PO SCH (05:51)
[2021-10-06] MEDS: PRENATAL VITAMINS W/ FOLIC ACID TABLET (FP) PO SCH (07:01)
[2021-10-06] MEDS: SERTRALINE HCL 50 MG TABLET (FP) PO SCH (10:03)
[2021-10-06] MEDS: BACITRACIN 0.9 GM PACKET TP SCH ×2 (10:04→21:23)
[2021-10-06] MEDS: NICOTINE 21 MG/24 HOURS TOPICAL PATCH TD SCH (11:10)
[2021-10-06] MEDS: ARIPiprazole 10 MG TABLET PO SCH (21:22)
[2021-10-06] MEDS: MELATONIN 5 MG TABLETS PO SCH (21:23)
[2021-10-06] MEDS: hydrOXYzine PAMOATE 25 MG CAPSULE (FP) PO PRN (21:23)
[2021-10-06] MEDS: THIAMINE HCL 100 MG TABLET (FP) PO SCH (21:23)
[2021-10-07] MEDS: methaDONE HCL 40 MG DISPERSABLE TABLET PO SCH (06:07)
[2021-10-07] MEDS: NICOTINE 10 MG CARTRIDGE (INHALER) IH PRN (06:08)
[2021-10-07] MEDS: PRENATAL VITAMINS W/ FOLIC ACID TABLET (FP) PO SCH (07:06)
[2021-10-07] MEDS: NICOTINE 21 MG/24 HOURS TOPICAL PATCH TD SCH (10:45)
[2021-10-07] MEDS: SERTRALINE HCL 50 MG TABLET (FP) PO SCH (10:45)
[2021-10-07] MEDS: BACITRACIN 0.9 GM PACKET TP SCH ×2 (10:45→22:28)
[2021-10-07 12:27] LABS: HIV INTERPRETATION NEGATIVE (NEGATIVE)
[2021-10-07] MEDS: ARIPiprazole 10 MG TABLET PO SCH (22:27)
[2021-10-07] MEDS: MELATONIN 5 MG TABLETS PO SCH (22:28)
[2021-10-07] MEDS: THIAMINE HCL 100 MG TABLET (FP) PO SCH (22:28)
[2021-10-08] MEDS: NICOTINE 10 MG CARTRIDGE (INHALER) IH PRN (06:24)
[2021-10-08] MEDS: methaDONE HCL 40 MG DISPERSABLE TABLET PO SCH (06:25)
[2021-10-08 06:56] VITALS: BP 137/72; TEMP 96.9
[2021-10-08 07:01] VITALS: PULSE 60
[2021-10-08] MEDS: PRENATAL VITAMINS W/ FOLIC ACID TABLET (FP) PO SCH (07:02)
[2021-10-08] MEDS: NICOTINE 21 MG/24 HOURS TOPICAL PATCH TD SCH (10:10)
[2021-10-08] MEDS: SERTRALINE HCL 50 MG TABLET (FP) PO SCH (10:10)
[2021-10-08] MEDS: BACITRACIN 0.9 GM PACKET TP SCH (10:11)
== END 2021-10-08 11:38 | disposition home or self-care (01) | DRG 772 ==
LOC: YASAS 10:33 → Y3W 10:36
PROVIDERS: ADMIT Allergy & Immunology; ATTEND Psychiatry & Neurology Pain Medicine
PROC: HZ42ZZZ Group Counseling for Substance Abuse Treatment, Cognitive-Behavioral (ICD-10-PCS; principal; 2021-09-28)
DX: F11.20 Opioid dependence, uncomplicated (principal); F14.20 Cocaine dependence, uncomplicated; F13.20 Sedative, hypnotic or anxiolytic dependence, uncomplicated; F10.20 Alcohol dependence, uncomplicated; F17.210 Nicotine dependence, cigarettes, uncomplicated; F25.1 Schizoaffective disorder, depressive type; F31.9 Bipolar disorder, unspecified; F41.9 Anxiety disorder, unspecified; E11.9 Type 2 diabetes mellitus without complications; L97.811 Non-pressure chronic ulcer of other part of right lower leg limited to breakdown of skin; R76.8 Other specified abnormal immunological findings in serum; R63.4 Abnormal weight loss; Z91.013 Allergy to seafood
CPT/HCPCS: 36415; 82962; 87389

== ENCOUNTER 2021-11-11 11:30 | Inpatient (IN) | payer OTHER ==
[2021-11-11 15:15] VITALS: BMI 23.7
[2021-11-11] MEDS ORDERED: ONDANSETRON *ODT* 4 MG TABLET SL PRN (16:19)
[2021-11-11] MEDS ORDERED: MAGNESIUM HYDROX 2400MG/30ML ORAL SUSPENSION 30 ML CUP PO PRN (16:19)
[2021-11-11] MEDS ORDERED: NICOTINE POLACRILEX 2 MG GUM BUC PRN (16:19)
[2021-11-11] MEDS ORDERED: BENZOCAINE/MENTHOL (CHLORASEPTIC ) LOZENGE MM PRN (16:19)
[2021-11-11] MEDS ORDERED: LOPERAMIDE HCL 2 MG CAPSULE PO PRN (16:19)
[2021-11-11] MEDS ORDERED: MAGNESIUM CITRATE 300 ML BOTTLE PO PRN (16:19)
[2021-11-11] MEDS ORDERED: IBUPROFEN 400 MG TABLET (FP) PO PRN (16:19)
[2021-11-11] MEDS ORDERED: ACETAMINOPHEN 325 MG TABLET (FP) PO PRN ×2 (16:19)
[2021-11-11] MEDS ORDERED: IBUPROFEN 600 MG TABLET (FP) PO PRN (16:19)
[2021-11-11] MEDS ORDERED: METHOCARBAMOL 500 MG TABLET PO PRN (16:19)
[2021-11-11] MEDS ORDERED: MAG HYDROX/AL HYDROX/SIMETH 30 ML UNIT-DOSE CUP PO PRN (16:19)
[2021-11-11] MEDS ORDERED: DICYCLOMINE HCL 10 MG CAPSULE PO PRN (16:19)
[2021-11-11] MEDS ORDERED: BISMUTH SUBSALICYLATE 524 MG/30 ML PO PRN (16:19)
[2021-11-11] MEDS: PRENATAL VITAMINS W/ FOLIC ACID TABLET (FP) PO SCH (18:56)
[2021-11-11] MEDS: hydrOXYzine PAMOATE 25 MG CAPSULE (FP) PO SCH ×2 (18:56→23:16)
[2021-11-11] MEDS ORDERED: PATIENT'S OWN MEDICATION (NON-FORMULARY) (Metformin Hcl [Metformin Er Osmotic] 1,000 MG Ta PO SCH (22:00)
[2021-11-11] MEDS: metFORMIN HCL 500 MG TABLET (FP) PO SCH (22:43)
[2021-11-11] MEDS: MELATONIN 5 MG TABLETS PO SCH (23:16)
[2021-11-11] MEDS: THIAMINE HCL 100 MG TABLET (FP) PO SCH (23:17)
[2021-11-12] MEDS: metFORMIN HCL 500 MG TABLET (FP) PO SCH ×2 (07:13→18:30)
[2021-11-12] MEDS ORDERED: diazePAM 5 MG TABLET PO PRN (09:44)
[2021-11-12] MEDS ORDERED: methaDONE HCL 10 MG TABLET PO SCH (09:45)
[2021-11-12] MEDS: PRENATAL VITAMINS W/ FOLIC ACID TABLET (FP) PO SCH (10:13)
[2021-11-12] MEDS: diazePAM 5 MG TABLET PO SCH ×3 (10:15→22:32)
[2021-11-12 12:04] LABS: HEMOGLOBIN 13.4 GM/dL (11.7-16.9); MCH 29.6 pg (25.7-33.7); MCHC 34.2 g/dl (32.0-35.9); MEAN CELL VOLUME 86.4 fl (80-96); MEAN PLT VOLUME 8.1 fl (7.5-11.1); PLATELET COUNT 207 10^3/uL (134-434); RBC 4.52 M/mm3 (4.00-5.60); WHITE BLOOD COUNT 5.4 K/mm3 (4.0-10.0)
[2021-11-12 12:30] LABS: CALCIUM 8.8 mg/dL (8.5-10.1)
[2021-11-12 12:31] LABS: ALBUMIN 3.2 g/dl (3.4-5.0); BLOOD UREA NITROGEN 10.7 mg/dL (7-18)
[2021-11-12 12:34] LABS: CREATININE 0.7 mg/dL (0.55-1.3)
[2021-11-12 12:35] LABS: TOT PROT 6.3 g/dl (6.4-8.2)
[2021-11-12 12:36] LABS: BILIRUBIN,TOTAL 0.2 mg/dL (0.2-1)
[2021-11-12] MEDS: THIAMINE HCL 100 MG TABLET (FP) PO SCH (22:32)
[2021-11-12] MEDS: MELATONIN 5 MG TABLETS PO SCH (22:33)
[2021-11-13] MEDS: diazePAM 5 MG TABLET PO SCH ×4 (05:46→22:25)
[2021-11-13] MEDS: metFORMIN HCL 500 MG TABLET (FP) PO SCH ×2 (07:08→17:49)
[2021-11-13] MEDS: PRENATAL VITAMINS W/ FOLIC ACID TABLET (FP) PO SCH (10:22)
[2021-11-13] MEDS: THIAMINE HCL 100 MG TABLET (FP) PO SCH (22:25)
[2021-11-13] MEDS: MELATONIN 5 MG TABLETS PO SCH (22:27)
[2021-11-14] MEDS: diazePAM 5 MG TABLET PO SCH ×3 (05:47→22:29)
[2021-11-14] MEDS: metFORMIN HCL 500 MG TABLET (FP) PO SCH ×2 (07:06→18:06)
[2021-11-14] MEDS: SERTRALINE HCL 50 MG TABLET (FP) PO SCH (10:19)
[2021-11-14] MEDS: PRENATAL VITAMINS W/ FOLIC ACID TABLET (FP) PO SCH (10:19)
[2021-11-14] MEDS: ARIPiprazole 10 MG TABLET PO SCH (10:19)
[2021-11-14] MEDS: MELATONIN 5 MG TABLETS PO SCH (22:30)
[2021-11-14] MEDS: THIAMINE HCL 100 MG TABLET (FP) PO SCH (22:30)
[2021-11-15] MEDS: diazePAM 5 MG TABLET PO SCH ×2 (05:30→17:57)
[2021-11-15] MEDS: metFORMIN HCL 500 MG TABLET (FP) PO SCH ×2 (06:29→17:57)
[2021-11-15] MEDS: ARIPiprazole 10 MG TABLET PO SCH (10:14)
[2021-11-15] MEDS: SERTRALINE HCL 50 MG TABLET (FP) PO SCH (10:14)
[2021-11-15] MEDS: PRENATAL VITAMINS W/ FOLIC ACID TABLET (FP) PO SCH (10:14)
[2021-11-15 19:02] VITALS: RESP 18
[2021-11-15] MEDS: THIAMINE HCL 100 MG TABLET (FP) PO SCH (22:25)
[2021-11-15] MEDS: MELATONIN 5 MG TABLETS PO SCH (22:25)
[2021-11-16] MEDS ORDERED: diazePAM 5 MG TABLET PO ONE (06:00)
[2021-11-16] MEDS: metFORMIN HCL 500 MG TABLET (FP) PO SCH (07:19)
[2021-11-16] MEDS: PRENATAL VITAMINS W/ FOLIC ACID TABLET (FP) PO SCH (10:26)
[2021-11-16] MEDS: ARIPiprazole 10 MG TABLET PO SCH (10:26)
[2021-11-16] MEDS: SERTRALINE HCL 50 MG TABLET (FP) PO SCH (10:26)
[2021-11-16 13:09] VITALS: BP 103/67; PULSE 65; TEMP 97.8
== END 2021-11-16 13:19 | disposition other institution (70) | DRG 773 ==
LOC: YASAS 11:30 → Y3N 16:44
PROVIDERS: ADMIT Allergy & Immunology; ATTEND Surgery
PROC: HZ2ZZZZ Detoxification Services for Substance Abuse Treatment (ICD-10-PCS; principal; 2021-11-11)
DX: F11.23 Opioid dependence with withdrawal (principal); F13.20 Sedative, hypnotic or anxiolytic dependence, uncomplicated; F14.20 Cocaine dependence, uncomplicated; F12.20 Cannabis dependence, uncomplicated; F17.210 Nicotine dependence, cigarettes, uncomplicated; F31.9 Bipolar disorder, unspecified; F19.24 Other psychoactive substance dependence with psychoactive substance-induced mood disorder; E11.9 Type 2 diabetes mellitus without complications; Z79.84 Long term (current) use of oral hypoglycemic drugs; Z86.19 Personal history of other infectious and parasitic diseases; Z86.59 Personal history of other mental and behavioral disorders
CPT/HCPCS: 36415; 80053; 82962; 85027; 86780; 87811; 93005; 93010; C9803-CS; U0003; U0005

== ENCOUNTER 2021-11-16 12:04 | Inpatient (IN) | payer OTHER ==
[2021-11-16] MEDS ORDERED: ACETAMINOPHEN 325 MG TABLET (FP) PO PRN (17:14)
[2021-11-16] MEDS ORDERED: IBUPROFEN 400 MG TABLET (FP) PO PRN (17:14)
[2021-11-16] MEDS ORDERED: BENZOCAINE/MENTHOL (CHLORASEPTIC ) LOZENGE MM PRN (17:14)
[2021-11-16] MEDS ORDERED: MAGNESIUM HYDROX 2400MG/30ML ORAL SUSPENSION 30 ML CUP PO PRN (17:14)
[2021-11-16] MEDS ORDERED: P-EPHED 60MG/TRIPROLIDI 2.5MG TABLET PO PRN (17:14)
[2021-11-16] MEDS ORDERED: MAG HYDROX/AL HYDROX/SIMETH 30 ML UNIT-DOSE CUP PO PRN (17:14)
[2021-11-16] MEDS ORDERED: LOPERAMIDE HCL 2 MG CAPSULE PO PRN (17:14)
[2021-11-16] MEDS ORDERED: guaiFENesin 200 MG/10 ML 10 ML UNIT-DOSE CUPS PO PRN (17:14)
[2021-11-16] MEDS ORDERED: hydrOXYzine PAMOATE 25 MG CAPSULE (FP) PO PRN (17:14)
[2021-11-16] MEDS ORDERED: MAGNESIUM CITRATE 300 ML BOTTLE PO PRN (17:14)
[2021-11-16] MEDS: MELATONIN 5 MG TABLETS PO SCH (23:03)
[2021-11-16] MEDS: THIAMINE HCL 100 MG TABLET (FP) PO SCH (23:03)
[2021-11-17] MEDS ORDERED: methaDONE HCL 10 MG TABLET PO SCH (06:00)
[2021-11-17] MEDS: metFORMIN HCL 500 MG TABLET (FP) PO SCH ×2 (06:31→17:24)
[2021-11-17] MEDS: PRENATAL VITAMINS W/ FOLIC ACID TABLET (FP) PO SCH (09:54)
[2021-11-17] MEDS: NICOTINE 7 MG/24 HOURS TOPICAL PATCH TD SCH (09:55)
[2021-11-17] MEDS: THIAMINE HCL 100 MG TABLET (FP) PO SCH (22:09)
[2021-11-17] MEDS: MELATONIN 5 MG TABLETS PO SCH (22:09)
[2021-11-18] MEDS: metFORMIN HCL 500 MG TABLET (FP) PO SCH ×2 (06:27→17:20)
[2021-11-18] MEDS: NICOTINE 7 MG/24 HOURS TOPICAL PATCH TD SCH (10:10)
[2021-11-18] MEDS: PRENATAL VITAMINS W/ FOLIC ACID TABLET (FP) PO SCH (10:10)
[2021-11-18] MEDS: THIAMINE HCL 100 MG TABLET (FP) PO SCH (23:20)
[2021-11-18] MEDS: MELATONIN 5 MG TABLETS PO SCH (23:20)
[2021-11-19] MEDS: metFORMIN HCL 500 MG TABLET (FP) PO SCH ×2 (07:19→16:49)
[2021-11-19] MEDS: NICOTINE 10 MG CARTRIDGE (INHALER) IH PRN (09:37)
[2021-11-19] MEDS: NICOTINE 7 MG/24 HOURS TOPICAL PATCH TD SCH (09:37)
[2021-11-19] MEDS: PRENATAL VITAMINS W/ FOLIC ACID TABLET (FP) PO SCH (09:37)
[2021-11-19] MEDS: MELATONIN 5 MG TABLETS PO SCH (21:38)
[2021-11-19] MEDS: THIAMINE HCL 100 MG TABLET (FP) PO SCH (21:38)
[2021-11-20] MEDS: metFORMIN HCL 500 MG TABLET (FP) PO SCH ×2 (06:12→16:45)
[2021-11-20] MEDS ORDERED: ARIPiprazole 5 MG TABLET ONE (08:32)
[2021-11-20] MEDS: ARIPiprazole 10 MG TABLET PO SCH (09:17)
[2021-11-20] MEDS: NICOTINE 7 MG/24 HOURS TOPICAL PATCH TD SCH (09:17)
[2021-11-20] MEDS: PRENATAL VITAMINS W/ FOLIC ACID TABLET (FP) PO SCH (09:18)
[2021-11-20] MEDS: SERTRALINE HCL 50 MG TABLET (FP) PO SCH (09:18)
[2021-11-20] MEDS: THIAMINE HCL 100 MG TABLET (FP) PO SCH (22:12)
[2021-11-20] MEDS: MELATONIN 5 MG TABLETS PO SCH (22:12)
[2021-11-21] MEDS: metFORMIN HCL 500 MG TABLET (FP) PO SCH ×2 (06:21→16:23)
[2021-11-21] MEDS: ARIPiprazole 10 MG TABLET PO SCH (09:37)
[2021-11-21] MEDS: PRENATAL VITAMINS W/ FOLIC ACID TABLET (FP) PO SCH (09:37)
[2021-11-21] MEDS: SERTRALINE HCL 50 MG TABLET (FP) PO SCH (09:37)
[2021-11-21] MEDS: NICOTINE 7 MG/24 HOURS TOPICAL PATCH TD SCH (09:37)
[2021-11-21] MEDS: THIAMINE HCL 100 MG TABLET (FP) PO SCH (21:35)
[2021-11-21] MEDS: MELATONIN 5 MG TABLETS PO SCH (21:35)
[2021-11-22] MEDS: metFORMIN HCL 500 MG TABLET (FP) PO SCH ×2 (06:28→17:05)
[2021-11-22] MEDS: NICOTINE 7 MG/24 HOURS TOPICAL PATCH TD SCH (09:58)
[2021-11-22] MEDS: NICOTINE 10 MG CARTRIDGE (INHALER) IH PRN (09:58)
[2021-11-22] MEDS: PRENATAL VITAMINS W/ FOLIC ACID TABLET (FP) PO SCH (09:58)
[2021-11-22] MEDS: SERTRALINE HCL 50 MG TABLET (FP) PO SCH (09:58)
[2021-11-22] MEDS: ARIPiprazole 10 MG TABLET PO SCH (09:58)
[2021-11-22] MEDS: THIAMINE HCL 100 MG TABLET (FP) PO SCH (22:15)
[2021-11-22] MEDS: MELATONIN 5 MG TABLETS PO SCH (22:15)
[2021-11-23] MEDS: metFORMIN HCL 500 MG TABLET (FP) PO SCH ×2 (06:29→17:06)
[2021-11-23] MEDS: SERTRALINE HCL 50 MG TABLET (FP) PO SCH (09:31)
[2021-11-23] MEDS: NICOTINE 7 MG/24 HOURS TOPICAL PATCH TD SCH (09:31)
[2021-11-23] MEDS: ARIPiprazole 10 MG TABLET PO SCH (09:31)
[2021-11-23] MEDS: PRENATAL VITAMINS W/ FOLIC ACID TABLET (FP) PO SCH (09:31)
[2021-11-23] MEDS: MELATONIN 5 MG TABLETS PO SCH (22:56)
[2021-11-23] MEDS: THIAMINE HCL 100 MG TABLET (FP) PO SCH (22:56)
[2021-11-24] MEDS: metFORMIN HCL 500 MG TABLET (FP) PO SCH ×2 (06:11→16:57)
[2021-11-24] MEDS ORDERED: ARIPiprazole 5 MG TABLET ONE (08:39)
[2021-11-24] MEDS: SERTRALINE HCL 50 MG TABLET (FP) PO SCH (09:34)
[2021-11-24] MEDS: ARIPiprazole 10 MG TABLET PO SCH (09:34)
[2021-11-24] MEDS: PRENATAL VITAMINS W/ FOLIC ACID TABLET (FP) PO SCH (09:34)
[2021-11-24] MEDS: NICOTINE 7 MG/24 HOURS TOPICAL PATCH TD SCH (09:35)
[2021-11-24] MEDS: MELATONIN 5 MG TABLETS PO SCH (23:09)
[2021-11-24] MEDS: THIAMINE HCL 100 MG TABLET (FP) PO SCH (23:09)
[2021-11-25] MEDS: levETIRAcetam 500 MG TABLET (FP) PO SCH ×3 (01:29→21:37)
[2021-11-25] MEDS: metFORMIN HCL 500 MG TABLET (FP) PO SCH ×2 (06:30→16:27)
[2021-11-25] MEDS ORDERED: ARIPiprazole 5 MG TABLET ONE (08:36)
[2021-11-25] MEDS: ARIPiprazole 10 MG TABLET PO SCH (09:30)
[2021-11-25] MEDS: NICOTINE 7 MG/24 HOURS TOPICAL PATCH TD SCH (09:31)
[2021-11-25] MEDS: SERTRALINE HCL 50 MG TABLET (FP) PO SCH (09:32)
[2021-11-25] MEDS: PRENATAL VITAMINS W/ FOLIC ACID TABLET (FP) PO SCH (09:32)
[2021-11-25] MEDS: THIAMINE HCL 100 MG TABLET (FP) PO SCH (21:37)
[2021-11-25] MEDS: MELATONIN 5 MG TABLETS PO SCH (21:37)
[2021-11-26] MEDS: metFORMIN HCL 500 MG TABLET (FP) PO SCH ×2 (06:15→16:59)
[2021-11-26] MEDS: SERTRALINE HCL 50 MG TABLET (FP) PO SCH (09:46)
[2021-11-26] MEDS: levETIRAcetam 500 MG TABLET (FP) PO SCH ×2 (09:46→21:26)
[2021-11-26] MEDS: NICOTINE 7 MG/24 HOURS TOPICAL PATCH TD SCH (09:47)
[2021-11-26] MEDS: PRENATAL VITAMINS W/ FOLIC ACID TABLET (FP) PO SCH (09:47)
[2021-11-26] MEDS: ARIPiprazole 10 MG TABLET PO SCH (09:47)
[2021-11-26] MEDS: NICOTINE 10 MG CARTRIDGE (INHALER) IH PRN (16:58)
[2021-11-26] MEDS: MELATONIN 5 MG TABLETS PO SCH (21:26)
[2021-11-26] MEDS: THIAMINE HCL 100 MG TABLET (FP) PO SCH (21:27)
[2021-11-27] MEDS: metFORMIN HCL 500 MG TABLET (FP) PO SCH ×2 (06:24→16:30)
[2021-11-27] MEDS: PRENATAL VITAMINS W/ FOLIC ACID TABLET (FP) PO SCH (10:14)
[2021-11-27] MEDS: ARIPiprazole 10 MG TABLET PO SCH (10:14)
[2021-11-27] MEDS: NICOTINE 7 MG/24 HOURS TOPICAL PATCH TD SCH (10:14)
[2021-11-27] MEDS: SERTRALINE HCL 50 MG TABLET (FP) PO SCH (10:14)
[2021-11-27] MEDS: levETIRAcetam 500 MG TABLET (FP) PO SCH ×2 (10:15→21:08)
[2021-11-27] MEDS: THIAMINE HCL 100 MG TABLET (FP) PO SCH (21:08)
[2021-11-27] MEDS: MELATONIN 5 MG TABLETS PO SCH (21:08)
[2021-11-28] MEDS: metFORMIN HCL 500 MG TABLET (FP) PO SCH ×3 (06:39→17:31)
[2021-11-28] MEDS: PRENATAL VITAMINS W/ FOLIC ACID TABLET (FP) PO SCH (09:49)
[2021-11-28] MEDS: SERTRALINE HCL 50 MG TABLET (FP) PO SCH (09:49)
[2021-11-28] MEDS: NICOTINE 7 MG/24 HOURS TOPICAL PATCH TD SCH (09:49)
[2021-11-28] MEDS: levETIRAcetam 500 MG TABLET (FP) PO SCH ×2 (09:49→21:33)
[2021-11-28] MEDS: ARIPiprazole 10 MG TABLET PO SCH (09:49)
[2021-11-28] MEDS: THIAMINE HCL 100 MG TABLET (FP) PO SCH (21:33)
[2021-11-28] MEDS: MELATONIN 5 MG TABLETS PO SCH (21:34)
[2021-11-29] MEDS: metFORMIN HCL 500 MG TABLET (FP) PO SCH ×2 (06:11→16:47)
[2021-11-29] MEDS ORDERED: ARIPiprazole 5 MG TABLET ONE (08:41)
[2021-11-29] MEDS: ARIPiprazole 10 MG TABLET PO SCH (09:34)
[2021-11-29] MEDS: NICOTINE 7 MG/24 HOURS TOPICAL PATCH TD SCH (09:35)
[2021-11-29] MEDS: SERTRALINE HCL 50 MG TABLET (FP) PO SCH (09:35)
[2021-11-29] MEDS: PRENATAL VITAMINS W/ FOLIC ACID TABLET (FP) PO SCH (09:35)
[2021-11-29] MEDS: levETIRAcetam 500 MG TABLET (FP) PO SCH ×2 (09:35→21:17)
[2021-11-29] MEDS: THIAMINE HCL 100 MG TABLET (FP) PO SCH (21:16)
[2021-11-29] MEDS: MELATONIN 5 MG TABLETS PO SCH (21:16)
[2021-11-30] MEDS: metFORMIN HCL 500 MG TABLET (FP) PO SCH (06:15)
[2021-11-30] MEDS ORDERED: ARIPiprazole 5 MG TABLET ONE (08:37)
[2021-11-30] MEDS: SERTRALINE HCL 50 MG TABLET (FP) PO SCH (09:49)
[2021-11-30] MEDS: PRENATAL VITAMINS W/ FOLIC ACID TABLET (FP) PO SCH (09:49)
[2021-11-30] MEDS: levETIRAcetam 500 MG TABLET (FP) PO SCH ×2 (09:49→21:21)
[2021-11-30] MEDS: NICOTINE 7 MG/24 HOURS TOPICAL PATCH TD SCH (09:50)
[2021-11-30] MEDS: ARIPiprazole 10 MG TABLET PO SCH (09:50)
[2021-11-30] MEDS: MELATONIN 5 MG TABLETS PO SCH (21:21)
[2021-11-30] MEDS: THIAMINE HCL 100 MG TABLET (FP) PO SCH (21:21)
[2021-12-01 06:35] VITALS: BP 113/73; PULSE 47; RESP 20; TEMP 97.5
[2021-12-01] MEDS ORDERED: ARIPiprazole 5 MG TABLET ONE (09:22)
[2021-12-01] MEDS: PRENATAL VITAMINS W/ FOLIC ACID TABLET (FP) PO SCH (09:25)
[2021-12-01] MEDS: levETIRAcetam 500 MG TABLET (FP) PO SCH (09:25)
[2021-12-01] MEDS: ARIPiprazole 10 MG TABLET PO SCH (09:25)
[2021-12-01] MEDS: SERTRALINE HCL 50 MG TABLET (FP) PO SCH (09:25)
[2021-12-01] MEDS: NICOTINE 7 MG/24 HOURS TOPICAL PATCH TD SCH (09:26)
== END 2021-12-01 09:33 | disposition home or self-care (01) | DRG 772 ==
LOC: YASAS 12:04 → Y3E 13:07
PROVIDERS: ADMIT Allergy & Immunology; ATTEND Psychiatry & Neurology Pain Medicine
PROC: HZ42ZZZ Group Counseling for Substance Abuse Treatment, Cognitive-Behavioral (ICD-10-PCS; principal; 2021-11-16)
DX: F11.20 Opioid dependence, uncomplicated (principal); F13.20 Sedative, hypnotic or anxiolytic dependence, uncomplicated; F14.20 Cocaine dependence, uncomplicated; F17.210 Nicotine dependence, cigarettes, uncomplicated; F19.24 Other psychoactive substance dependence with psychoactive substance-induced mood disorder; F25.1 Schizoaffective disorder, depressive type; G40.909 Epilepsy, unspecified, not intractable, without status epilepticus; B18.2 Chronic viral hepatitis C; R63.4 Abnormal weight loss; Z68.22 Body mass index [BMI] 22.0-22.9, adult; E11.9 Type 2 diabetes mellitus without complications; Z86.59 Personal history of other mental and behavioral disorders; Z91.013 Allergy to seafood; Z79.84 Long term (current) use of oral hypoglycemic drugs
CPT/HCPCS: 82962; 83036

== ENCOUNTER 2021-11-24 18:53 | Emergency (ER) | payer OTHER ==
[2021-11-24 19:02] VITALS: BP 135/77; PULSE 56; RESP 18; TEMP 98; BMI 25.1
[2021-11-24] MEDS ORDERED: LORazepam 2 MG TABLET PO ONE (20:33)
[2021-11-24] MEDS ORDERED: LORazepam 2 MG/ML SDV VIAL IVPB ONE (20:45)
[2021-11-24 21:16] LABS: BASO % 0.4 % (0-2.0); EOS % 0.8 % (0-4.5); HEMATOCRIT 46.4 % (35.4-49); HEMOGLOBIN 15.6 GM/dL (11.7-16.9); LYMPH % 25.1 % (8-40); MCH 29.3 pg (25.7-33.7); MCHC 33.6 g/dl (32.0-35.9); MEAN CELL VOLUME 87.1 fl (80-96); MEAN PLT VOLUME 7.9 fl (7.5-11.1); MONO % 6.7 % (3.8-10.2); PLATELET COUNT 204 10^3/uL (134-434); RBC 5.33 M/mm3 (4.00-5.60); RDW 14.2 % (11.9-15.9); WHITE BLOOD COUNT 8.4 K/mm3 (4.0-10.0)
[2021-11-24 21:39] LABS: CALCIUM 9.4 mg/dL (8.5-10.1)
[2021-11-24 21:40] LABS: BLOOD UREA NITROGEN 20.9 mg/dL (7-18)
[2021-11-24 21:44] LABS: CREATININE 0.8 mg/dL (0.55-1.3)
[2021-11-24 21:45] LABS: BILIRUBIN,TOTAL 0.3 mg/dL (0.2-1); TOT PROT 8.1 g/dl (6.4-8.2)
[2021-11-24 21:47] LABS: ALBUMIN 4.1 g/dl (3.4-5.0)
== END 2021-11-24 23:28 | disposition home or self-care (01) ==
LOC: JER 18:53
DX: G40.89 Other seizures (principal); Z86.59 Personal history of other mental and behavioral disorders
CPT/HCPCS: 36415; 70450-TC; 80053; 82962; 85025; 93005; 93010; 99285-25

== ENCOUNTER 2022-01-16 15:25 | Inpatient (IN) | payer OTHER ==
[2022-01-16 17:50] VITALS: BMI 22.3
[2022-01-16] MEDS ORDERED: MAGNESIUM CITRATE 300 ML BOTTLE PO PRN (19:52)
[2022-01-16] MEDS ORDERED: MAGNESIUM HYDROX 2400MG/30ML ORAL SUSPENSION 30 ML CUP PO PRN (19:52)
[2022-01-16] MEDS ORDERED: ONDANSETRON *ODT* 4 MG TABLET SL PRN (19:52)
[2022-01-16] MEDS ORDERED: IBUPROFEN 400 MG TABLET (FP) PO PRN (19:52)
[2022-01-16] MEDS ORDERED: LOPERAMIDE HCL 2 MG CAPSULE PO PRN (19:52)
[2022-01-16] MEDS ORDERED: DICYCLOMINE HCL 10 MG CAPSULE PO PRN (19:52)
[2022-01-16] MEDS ORDERED: ACETAMINOPHEN 325 MG TABLET (FP) PO PRN ×2 (19:52)
[2022-01-16] MEDS ORDERED: BISMUTH SUBSALICYLATE 524 MG/30 ML PO PRN (19:52)
[2022-01-16] MEDS ORDERED: IBUPROFEN 600 MG TABLET (FP) PO PRN (19:52)
[2022-01-16] MEDS ORDERED: NALOXONE HCL (KLOXXADO) 8 MG SPRAY NS PRN (19:52)
[2022-01-16] MEDS ORDERED: MAG HYDROX/AL HYDROX/SIMETH 30 ML UNIT-DOSE CUP PO PRN (19:52)
[2022-01-16] MEDS ORDERED: BENZOCAINE/MENTHOL (CHLORASEPTIC ) LOZENGE MM PRN (19:52)
[2022-01-16] MEDS ORDERED: NICOTINE 10 MG CARTRIDGE (INHALER) IH PRN (19:52)
[2022-01-16] MEDS: MELATONIN 5 MG TABLETS PO SCH (22:00)
[2022-01-16] MEDS: hydrOXYzine PAMOATE 25 MG CAPSULE (FP) PO PRN (22:47)
[2022-01-16] MEDS: THIAMINE HCL 100 MG TABLET (FP) PO SCH (22:47)
[2022-01-16] MEDS: PRENATAL VITAMINS W/ FOLIC ACID TABLET (FP) PO SCH (23:23)
[2022-01-16] MEDS: BACITRACIN 0.9 GM PACKET TP SCH (23:23)
[2022-01-17] MEDS ORDERED: methaDONE HCL 40 MG DISPERSABLE TABLET PO SCH (10:45)
[2022-01-17] MEDS: METHOCARBAMOL 500 MG TABLET PO PRN (11:00)
[2022-01-17] MEDS: ARIPiprazole 10 MG TABLET PO SCH (11:00)
[2022-01-17] MEDS: hydrOXYzine PAMOATE 25 MG CAPSULE (FP) PO PRN ×2 (11:00→17:47)
[2022-01-17] MEDS: PRENATAL VITAMINS W/ FOLIC ACID TABLET (FP) PO SCH (11:03)
[2022-01-17 11:41] LABS: HEMATOCRIT 39.5 % (35.4-49); HEMOGLOBIN 13.3 GM/dL (11.7-16.9); MCH 29.3 pg (25.7-33.7); MCHC 33.6 g/dl (32.0-35.9); MEAN CELL VOLUME 87.2 fl (80-96); MEAN PLT VOLUME 8.9 fl (7.5-11.1); PLATELET COUNT 185 10^3/uL (134-434); RBC 4.53 M/mm3 (4.00-5.60); RDW 14.2 % (11.9-15.9); WHITE BLOOD COUNT 5.2 K/mm3 (4.0-10.0)
[2022-01-17 11:54] LABS: ALBUMIN 3.2 g/dl (3.4-5.0); BLOOD UREA NITROGEN 15.1 mg/dL (7-18); CALCIUM 9.1 mg/dL (8.5-10.1)
[2022-01-17 11:56] LABS: CREATININE 0.7 mg/dL (0.55-1.3)
[2022-01-17 11:58] LABS: BILIRUBIN,TOTAL 0.5 mg/dL (0.2-1); TOT PROT 6.6 g/dl (6.4-8.2)
[2022-01-17] MEDS: SERTRALINE HCL 50 MG TABLET (FP) PO SCH (12:07)
[2022-01-17] MEDS: BACITRACIN 0.9 GM PACKET TP SCH (12:08)
[2022-01-17] MEDS: THIAMINE HCL 100 MG TABLET (FP) PO SCH (23:36)
[2022-01-17] MEDS: MELATONIN 5 MG TABLETS PO SCH (23:36)
[2022-01-18] MEDS: ARIPiprazole 10 MG TABLET PO SCH (09:35)
[2022-01-18] MEDS: PRENATAL VITAMINS W/ FOLIC ACID TABLET (FP) PO SCH (09:35)
[2022-01-18] MEDS: SERTRALINE HCL 50 MG TABLET (FP) PO SCH (09:35)
[2022-01-18] MEDS: BACITRACIN 0.9 GM PACKET TP SCH (09:35)
[2022-01-18] MEDS: METHOCARBAMOL 500 MG TABLET PO PRN (09:36)
[2022-01-18] MEDS: hydrOXYzine PAMOATE 25 MG CAPSULE (FP) PO PRN (09:36)
[2022-01-18] MEDS ORDERED: levETIRAcetam 500 MG TABLET (FP) PO SCH (10:45)
[2022-01-18 12:53] VITALS: BP 146/74; PULSE 54; RESP 17; TEMP 98.8
== END 2022-01-18 14:18 | disposition other institution (70) | DRG 773 ==
LOC: YASAS 15:25 → Y6N 20:20
PROVIDERS: ADMIT Allergy & Immunology; ATTEND Surgery
PROC: HZ2ZZZZ Detoxification Services for Substance Abuse Treatment (ICD-10-PCS; principal; 2022-01-16)
DX: F11.23 Opioid dependence with withdrawal (principal); F10.230 Alcohol dependence with withdrawal, uncomplicated; F13.20 Sedative, hypnotic or anxiolytic dependence, uncomplicated; F14.20 Cocaine dependence, uncomplicated; F12.20 Cannabis dependence, uncomplicated; F25.1 Schizoaffective disorder, depressive type; F31.9 Bipolar disorder, unspecified; F19.24 Other psychoactive substance dependence with psychoactive substance-induced mood disorder; F41.9 Anxiety disorder, unspecified; G40.909 Epilepsy, unspecified, not intractable, without status epilepticus; E11.9 Type 2 diabetes mellitus without complications; R63.4 Abnormal weight loss; Z68.22 Body mass index [BMI] 22.0-22.9, adult; Z87.891 Personal history of nicotine dependence
CPT/HCPCS: 36415; 80053; 82962; 85027; 86780; C9803-CS; U0003; U0005

== ENCOUNTER 2022-01-18 14:45 | Inpatient (IN) | payer OTHER ==
[2022-01-18] MEDS ORDERED: P-EPHED 60MG/TRIPROLIDI 2.5MG TABLET PO PRN (15:39)
[2022-01-18] MEDS ORDERED: IBUPROFEN 400 MG TABLET (FP) PO PRN (15:39)
[2022-01-18] MEDS ORDERED: MAGNESIUM CITRATE 300 ML BOTTLE PO PRN (15:39)
[2022-01-18] MEDS ORDERED: MAGNESIUM HYDROX 2400MG/30ML ORAL SUSPENSION 30 ML CUP PO PRN (15:39)
[2022-01-18] MEDS ORDERED: MAG HYDROX/AL HYDROX/SIMETH 30 ML UNIT-DOSE CUP PO PRN (15:39)
[2022-01-18] MEDS ORDERED: hydrOXYzine PAMOATE 25 MG CAPSULE (FP) PO PRN (15:39)
[2022-01-18] MEDS ORDERED: guaiFENesin 200 MG/10 ML 10 ML UNIT-DOSE CUPS PO PRN (15:39)
[2022-01-18] MEDS ORDERED: LOPERAMIDE HCL 2 MG CAPSULE PO PRN (15:39)
[2022-01-18] MEDS ORDERED: ACETAMINOPHEN 325 MG TABLET (FP) PO PRN (15:39)
[2022-01-18] MEDS: THIAMINE HCL 100 MG TABLET (FP) PO SCH (21:57)
[2022-01-18] MEDS: MELATONIN 5 MG TABLETS PO SCH (21:57)
[2022-01-18] MEDS: levETIRAcetam 500 MG TABLET (FP) PO SCH (21:59)
[2022-01-18] MEDS ORDERED: MELATONIN 5 MG TABLETS PO SCH (22:00)
[2022-01-19] MEDS ORDERED: methaDONE HCL 40 MG DISPERSABLE TABLET PO SCH (06:00)
[2022-01-19] MEDS: PRENATAL VITAMINS W/ FOLIC ACID TABLET (FP) PO SCH (10:35)
[2022-01-19] MEDS: levETIRAcetam 500 MG TABLET (FP) PO SCH ×2 (10:36→21:32)
[2022-01-19] MEDS: NICOTINE 7 MG/24 HOURS TOPICAL PATCH TD SCH (10:36)
[2022-01-19] MEDS: ARIPiprazole 10 MG TABLET PO SCH (10:36)
[2022-01-19] MEDS: SERTRALINE HCL 50 MG TABLET (FP) PO SCH (10:36)
[2022-01-19] MEDS: MELATONIN 5 MG TABLETS PO SCH (21:32)
[2022-01-19] MEDS: THIAMINE HCL 100 MG TABLET (FP) PO SCH (21:32)
[2022-01-20] MEDS: ARIPiprazole 10 MG TABLET PO SCH (10:16)
[2022-01-20] MEDS: PRENATAL VITAMINS W/ FOLIC ACID TABLET (FP) PO SCH (10:16)
[2022-01-20] MEDS: levETIRAcetam 500 MG TABLET (FP) PO SCH ×2 (10:16→21:27)
[2022-01-20] MEDS: SERTRALINE HCL 50 MG TABLET (FP) PO SCH (10:16)
[2022-01-20] MEDS: NICOTINE 7 MG/24 HOURS TOPICAL PATCH TD SCH (10:16)
[2022-01-20] MEDS: THIAMINE HCL 100 MG TABLET (FP) PO SCH (21:26)
[2022-01-20] MEDS: MELATONIN 5 MG TABLETS PO SCH (21:26)
[2022-01-21] MEDS: PRENATAL VITAMINS W/ FOLIC ACID TABLET (FP) PO SCH (10:23)
[2022-01-21] MEDS: NICOTINE 7 MG/24 HOURS TOPICAL PATCH TD SCH (10:23)
[2022-01-21] MEDS: SERTRALINE HCL 50 MG TABLET (FP) PO SCH (10:24)
[2022-01-21] MEDS: levETIRAcetam 500 MG TABLET (FP) PO SCH ×2 (10:24→21:25)
[2022-01-21] MEDS: ARIPiprazole 10 MG TABLET PO SCH (10:24)
[2022-01-21] MEDS: MELATONIN 5 MG TABLETS PO SCH (21:25)
[2022-01-21] MEDS: THIAMINE HCL 100 MG TABLET (FP) PO SCH (21:25)
[2022-01-22] MEDS: PRENATAL VITAMINS W/ FOLIC ACID TABLET (FP) PO SCH (10:21)
[2022-01-22] MEDS: NICOTINE 7 MG/24 HOURS TOPICAL PATCH TD SCH (10:22)
[2022-01-22] MEDS: SERTRALINE HCL 50 MG TABLET (FP) PO SCH (10:23)
[2022-01-22] MEDS: levETIRAcetam 500 MG TABLET (FP) PO SCH ×2 (10:23→21:30)
[2022-01-22] MEDS: ARIPiprazole 10 MG TABLET PO SCH (10:23)
[2022-01-22] MEDS: MELATONIN 5 MG TABLETS PO SCH (21:30)
[2022-01-22] MEDS: THIAMINE HCL 100 MG TABLET (FP) PO SCH (21:30)
[2022-01-23] MEDS: SERTRALINE HCL 50 MG TABLET (FP) PO SCH (10:33)
[2022-01-23] MEDS: PRENATAL VITAMINS W/ FOLIC ACID TABLET (FP) PO SCH (10:33)
[2022-01-23] MEDS: ARIPiprazole 10 MG TABLET PO SCH (10:33)
[2022-01-23] MEDS: levETIRAcetam 500 MG TABLET (FP) PO SCH ×2 (10:33→21:16)
[2022-01-23] MEDS: NICOTINE 7 MG/24 HOURS TOPICAL PATCH TD SCH (10:34)
[2022-01-23] MEDS: THIAMINE HCL 100 MG TABLET (FP) PO SCH (21:16)
[2022-01-23] MEDS: MELATONIN 5 MG TABLETS PO SCH (21:16)
[2022-01-24] MEDS: PRENATAL VITAMINS W/ FOLIC ACID TABLET (FP) PO SCH (10:35)
[2022-01-24] MEDS: ARIPiprazole 10 MG TABLET PO SCH (10:36)
[2022-01-24] MEDS: SERTRALINE HCL 50 MG TABLET (FP) PO SCH (10:36)
[2022-01-24] MEDS: NICOTINE 7 MG/24 HOURS TOPICAL PATCH TD SCH (10:36)
[2022-01-24] MEDS: levETIRAcetam 500 MG TABLET (FP) PO SCH ×2 (10:36→21:27)
[2022-01-24] MEDS: NICOTINE 10 MG CARTRIDGE (INHALER) IH PRN (10:37)
[2022-01-24] MEDS: MELATONIN 5 MG TABLETS PO SCH (21:27)
[2022-01-24] MEDS: THIAMINE HCL 100 MG TABLET (FP) PO SCH (21:27)
[2022-01-25] MEDS: PRENATAL VITAMINS W/ FOLIC ACID TABLET (FP) PO SCH (09:28)
[2022-01-25] MEDS: SERTRALINE HCL 50 MG TABLET (FP) PO SCH (09:28)
[2022-01-25] MEDS: ARIPiprazole 10 MG TABLET PO SCH (09:28)
[2022-01-25] MEDS: levETIRAcetam 500 MG TABLET (FP) PO SCH ×2 (09:28→21:24)
[2022-01-25] MEDS: NICOTINE 7 MG/24 HOURS TOPICAL PATCH TD SCH (09:29)
[2022-01-25] MEDS: THIAMINE HCL 100 MG TABLET (FP) PO SCH (21:24)
[2022-01-25] MEDS: MELATONIN 5 MG TABLETS PO SCH (21:24)
[2022-01-26] MEDS: PRENATAL VITAMINS W/ FOLIC ACID TABLET (FP) PO SCH (09:48)
[2022-01-26] MEDS: NICOTINE 7 MG/24 HOURS TOPICAL PATCH TD SCH (09:48)
[2022-01-26] MEDS: levETIRAcetam 500 MG TABLET (FP) PO SCH ×2 (09:49→21:51)
[2022-01-26] MEDS: SERTRALINE HCL 50 MG TABLET (FP) PO SCH (09:49)
[2022-01-26] MEDS: ARIPiprazole 10 MG TABLET PO SCH (09:49)
[2022-01-26] MEDS: THIAMINE HCL 100 MG TABLET (FP) PO SCH (21:51)
[2022-01-26] MEDS: MELATONIN 5 MG TABLETS PO SCH (21:51)
[2022-01-27] MEDS: PRENATAL VITAMINS W/ FOLIC ACID TABLET (FP) PO SCH (09:59)
[2022-01-27] MEDS: NICOTINE 7 MG/24 HOURS TOPICAL PATCH TD SCH (10:00)
[2022-01-27] MEDS: ARIPiprazole 10 MG TABLET PO SCH (10:00)
[2022-01-27] MEDS: levETIRAcetam 500 MG TABLET (FP) PO SCH ×2 (10:00→21:08)
[2022-01-27] MEDS: SERTRALINE HCL 50 MG TABLET (FP) PO SCH (10:00)
[2022-01-27] MEDS: NICOTINE 10 MG CARTRIDGE (INHALER) IH PRN (16:40)
[2022-01-27] MEDS: MELATONIN 5 MG TABLETS PO SCH (21:08)
[2022-01-27] MEDS: THIAMINE HCL 100 MG TABLET (FP) PO SCH (21:08)
[2022-01-28] MEDS: PRENATAL VITAMINS W/ FOLIC ACID TABLET (FP) PO SCH (09:54)
[2022-01-28] MEDS: levETIRAcetam 500 MG TABLET (FP) PO SCH ×2 (09:54→21:45)
[2022-01-28] MEDS: NICOTINE 7 MG/24 HOURS TOPICAL PATCH TD SCH (09:54)
[2022-01-28] MEDS: ARIPiprazole 10 MG TABLET PO SCH (09:54)
[2022-01-28] MEDS: SERTRALINE HCL 50 MG TABLET (FP) PO SCH (09:54)
[2022-01-28] MEDS: MELATONIN 5 MG TABLETS PO SCH (21:45)
[2022-01-28] MEDS: THIAMINE HCL 100 MG TABLET (FP) PO SCH (21:46)
[2022-01-29] MEDS: ARIPiprazole 10 MG TABLET PO SCH (10:13)
[2022-01-29] MEDS: SERTRALINE HCL 50 MG TABLET (FP) PO SCH (10:13)
[2022-01-29] MEDS: PRENATAL VITAMINS W/ FOLIC ACID TABLET (FP) PO SCH (10:13)
[2022-01-29] MEDS: levETIRAcetam 500 MG TABLET (FP) PO SCH ×2 (10:13→21:27)
[2022-01-29] MEDS: NICOTINE 7 MG/24 HOURS TOPICAL PATCH TD SCH (10:13)
[2022-01-29] MEDS ORDERED: ONDANSETRON *ODT* 4 MG TABLET SL PRN (12:52)
[2022-01-29] MEDS: MELATONIN 5 MG TABLETS PO SCH (21:27)
[2022-01-29] MEDS: THIAMINE HCL 100 MG TABLET (FP) PO SCH (21:27)
[2022-01-30] MEDS: PRENATAL VITAMINS W/ FOLIC ACID TABLET (FP) PO SCH (10:25)
[2022-01-30] MEDS: NICOTINE 7 MG/24 HOURS TOPICAL PATCH TD SCH (10:25)
[2022-01-30] MEDS: SERTRALINE HCL 50 MG TABLET (FP) PO SCH (10:26)
[2022-01-30] MEDS: levETIRAcetam 500 MG TABLET (FP) PO SCH ×2 (10:26→21:12)
[2022-01-30] MEDS: ARIPiprazole 10 MG TABLET PO SCH (10:26)
[2022-01-30] MEDS: THIAMINE HCL 100 MG TABLET (FP) PO SCH (21:12)
[2022-01-30] MEDS: MELATONIN 5 MG TABLETS PO SCH (21:12)
[2022-01-31] MEDS: PRENATAL VITAMINS W/ FOLIC ACID TABLET (FP) PO SCH (10:09)
[2022-01-31] MEDS: ARIPiprazole 10 MG TABLET PO SCH (10:09)
[2022-01-31] MEDS: levETIRAcetam 500 MG TABLET (FP) PO SCH ×2 (10:10→21:47)
[2022-01-31] MEDS: SERTRALINE HCL 50 MG TABLET (FP) PO SCH (10:10)
[2022-01-31] MEDS: NICOTINE 7 MG/24 HOURS TOPICAL PATCH TD SCH (10:10)
[2022-01-31] MEDS: MELATONIN 5 MG TABLETS PO SCH (21:47)
[2022-01-31] MEDS: THIAMINE HCL 100 MG TABLET (FP) PO SCH (21:48)
[2022-02-01 07:01] VITALS: RESP 18
[2022-02-01] MEDS: PRENATAL VITAMINS W/ FOLIC ACID TABLET (FP) PO SCH (09:17)
[2022-02-01] MEDS: levETIRAcetam 500 MG TABLET (FP) PO SCH ×2 (09:18→21:34)
[2022-02-01] MEDS: ARIPiprazole 10 MG TABLET PO SCH (09:18)
[2022-02-01] MEDS: SERTRALINE HCL 50 MG TABLET (FP) PO SCH (09:18)
[2022-02-01] MEDS: NICOTINE 7 MG/24 HOURS TOPICAL PATCH TD SCH (09:19)
[2022-02-01] MEDS: MELATONIN 5 MG TABLETS PO SCH (21:35)
[2022-02-01] MEDS: THIAMINE HCL 100 MG TABLET (FP) PO SCH (21:35)
[2022-02-02] MEDS ORDERED: methaDONE HCL 10 MG TABLET PO SCH (06:00)
[2022-02-02] MEDS: NICOTINE 7 MG/24 HOURS TOPICAL PATCH TD SCH (10:32)
[2022-02-02] MEDS: PRENATAL VITAMINS W/ FOLIC ACID TABLET (FP) PO SCH (10:32)
[2022-02-02] MEDS: levETIRAcetam 500 MG TABLET (FP) PO SCH ×2 (10:33→21:17)
[2022-02-02] MEDS: SERTRALINE HCL 50 MG TABLET (FP) PO SCH (10:33)
[2022-02-02] MEDS: ARIPiprazole 10 MG TABLET PO SCH (10:33)
[2022-02-02] MEDS: MELATONIN 5 MG TABLETS PO SCH (21:17)
[2022-02-02] MEDS: THIAMINE HCL 100 MG TABLET (FP) PO SCH (21:17)
[2022-02-03 07:08] VITALS: BP 104/64; PULSE 56; TEMP 97.7
== END 2022-02-03 08:10 | disposition home or self-care (01) | DRG 772 ==
LOC: YASAS 14:45 → Y3W 14:46
PROVIDERS: ADMIT Allergy & Immunology; ATTEND Psychiatry & Neurology Pain Medicine
PROC: HZ42ZZZ Group Counseling for Substance Abuse Treatment, Cognitive-Behavioral (ICD-10-PCS; principal; 2022-01-18)
DX: F11.20 Opioid dependence, uncomplicated (principal); F10.20 Alcohol dependence, uncomplicated; F13.20 Sedative, hypnotic or anxiolytic dependence, uncomplicated; F14.20 Cocaine dependence, uncomplicated; F12.20 Cannabis dependence, uncomplicated; F17.210 Nicotine dependence, cigarettes, uncomplicated; F25.1 Schizoaffective disorder, depressive type; F31.9 Bipolar disorder, unspecified; F19.24 Other psychoactive substance dependence with psychoactive substance-induced mood disorder; F41.9 Anxiety disorder, unspecified; G40.909 Epilepsy, unspecified, not intractable, without status epilepticus; B18.2 Chronic viral hepatitis C; E11.9 Type 2 diabetes mellitus without complications; Z79.84 Long term (current) use of oral hypoglycemic drugs; R63.4 Abnormal weight loss; Z68.21 Body mass index [BMI] 21.0-21.9, adult
CPT/HCPCS: 82962

== ENCOUNTER 2022-03-04 14:06 | Inpatient (IN) | payer OTHER ==
[2022-03-04 16:58] VITALS: BMI 23.7
[2022-03-04] MEDS ORDERED: BISMUTH SUBSALICYLATE 524 MG/30 ML PO PRN (20:05)
[2022-03-04] MEDS ORDERED: METHOCARBAMOL 500 MG TABLET PO PRN (20:05)
[2022-03-04] MEDS ORDERED: hydrOXYzine PAMOATE 25 MG CAPSULE (FP) PO PRN (20:05)
[2022-03-04] MEDS ORDERED: POLYETHYLENE GLYCOL (HEALTHYLAX) 3350 17 GM PACKET PO PRN (20:05)
[2022-03-04] MEDS ORDERED: DICYCLOMINE HCL 10 MG CAPSULE PO PRN (20:05)
[2022-03-04] MEDS ORDERED: NALOXONE HCL (KLOXXADO) 8 MG SPRAY NS PRN (20:05)
[2022-03-04] MEDS ORDERED: ONDANSETRON *ODT* 4 MG TABLET SL PRN (20:05)
[2022-03-04] MEDS ORDERED: LOPERAMIDE HCL 2 MG CAPSULE PO PRN (20:05)
[2022-03-04] MEDS ORDERED: IBUPROFEN 600 MG TABLET (FP) PO PRN (20:05)
[2022-03-04] MEDS ORDERED: BENZOCAINE/MENTHOL (CHLORASEPTIC ) LOZENGE MM PRN (20:05)
[2022-03-04] MEDS ORDERED: ACETAMINOPHEN 325 MG TABLET (FP) PO PRN ×2 (20:05)
[2022-03-04] MEDS ORDERED: NICOTINE 10 MG CARTRIDGE (INHALER) IH PRN (20:05)
[2022-03-04] MEDS ORDERED: MAG HYDROX/AL HYDROX/SIMETH 30 ML UNIT-DOSE CUP PO PRN (20:05)
[2022-03-04] MEDS ORDERED: MAGNESIUM HYDROX 2400MG/30ML ORAL SUSPENSION 30 ML CUP PO PRN (20:05)
[2022-03-04] MEDS ORDERED: diazePAM 5 MG TABLET PO PRN (20:05)
[2022-03-04] MEDS ORDERED: IBUPROFEN 400 MG TABLET (FP) PO PRN (20:05)
[2022-03-04] MEDS ORDERED: NICOTINE POLACRILEX 2 MG GUM BUC PRN (20:17)
[2022-03-04] MEDS: INSULIN SLIDING SCALE (NOVOLOG) 1 VIAL SQ SCH (21:20)
[2022-03-04] MEDS: PRENATAL VITAMINS W/ FOLIC ACID TABLET (FP) PO SCH (22:30)
[2022-03-04] MEDS: MELATONIN 5 MG TABLETS PO SCH (22:30)
[2022-03-04] MEDS: THIAMINE HCL 100 MG TABLET (FP) PO SCH (22:30)
[2022-03-04] MEDS: diazePAM 5 MG TABLET PO SCH (22:31)
[2022-03-05] MEDS: diazePAM 5 MG TABLET PO SCH ×4 (06:07→23:01)
[2022-03-05] MEDS: INSULIN SLIDING SCALE (NOVOLOG) 1 VIAL SQ SCH ×4 (07:27→23:00)
[2022-03-05] MEDS: levETIRAcetam 500 MG TABLET (FP) PO SCH (10:08)
[2022-03-05] MEDS: methaDONE HCL 40 MG DISPERSABLE TABLET PO SCH (10:08)
[2022-03-05] MEDS: PRENATAL VITAMINS W/ FOLIC ACID TABLET (FP) PO SCH (10:08)
[2022-03-05 17:20] LABS: ALBUMIN 3.3 g/dl (3.4-5.0); BLOOD UREA NITROGEN 10.6 mg/dL (7-18); CALCIUM 9.4 mg/dL (8.5-10.1)
[2022-03-05 17:22] LABS: CREATININE 0.7 mg/dL (0.55-1.3)
[2022-03-05 17:24] LABS: BILIRUBIN,TOTAL 0.3 mg/dL (0.2-1)
[2022-03-05 17:34] LABS: HEMATOCRIT 41.9 % (35.4-49); HEMOGLOBIN 13.6 GM/dL (11.7-16.9); MCH 28.5 pg (25.7-33.7); MCHC 32.6 g/dl (32.0-35.9); MEAN CELL VOLUME 87.5 fl (80-96); MEAN PLT VOLUME 8.2 fl (7.5-11.1); PLATELET COUNT 341 10^3/uL (134-434); RBC 4.78 M/mm3 (4.00-5.60); WHITE BLOOD COUNT 4.3 K/mm3 (4.0-10.0)
[2022-03-05] MEDS: metFORMIN HCL 500 MG TABLET (FP) PO SCH (17:53)
[2022-03-05] MEDS: MELATONIN 5 MG TABLETS PO SCH (23:00)
[2022-03-05] MEDS: THIAMINE HCL 100 MG TABLET (FP) PO SCH (23:01)
[2022-03-06] MEDS: diazePAM 5 MG TABLET PO SCH ×3 (07:10→23:57)
[2022-03-06] MEDS: methaDONE HCL 40 MG DISPERSABLE TABLET PO SCH (07:10)
[2022-03-06] MEDS: metFORMIN HCL 500 MG TABLET (FP) PO SCH ×2 (07:11→17:22)
[2022-03-06] MEDS: ARIPiprazole 10 MG TABLET PO SCH (09:53)
[2022-03-06] MEDS: SERTRALINE HCL 50 MG TABLET (FP) PO SCH (09:53)
[2022-03-06] MEDS: PRENATAL VITAMINS W/ FOLIC ACID TABLET (FP) PO SCH (09:53)
[2022-03-06] MEDS: levETIRAcetam 500 MG TABLET (FP) PO SCH (09:53)
[2022-03-06] MEDS: INSULIN SLIDING SCALE (NOVOLOG) 1 VIAL SQ SCH ×2 (09:55→17:28)
[2022-03-06] MEDS: THIAMINE HCL 100 MG TABLET (FP) PO SCH (23:57)
[2022-03-07] MEDS: MELATONIN 5 MG TABLETS PO SCH (00:15)
[2022-03-07] MEDS: metFORMIN HCL 500 MG TABLET (FP) PO SCH ×2 (06:10→16:40)
[2022-03-07] MEDS: diazePAM 5 MG TABLET PO SCH ×2 (06:10→18:01)
[2022-03-07] MEDS: methaDONE HCL 40 MG DISPERSABLE TABLET PO SCH (06:11)
[2022-03-07] MEDS: SERTRALINE HCL 50 MG TABLET (FP) PO SCH (11:04)
[2022-03-07] MEDS: levETIRAcetam 500 MG TABLET (FP) PO SCH (11:04)
[2022-03-07] MEDS: PRENATAL VITAMINS W/ FOLIC ACID TABLET (FP) PO SCH (11:04)
[2022-03-07] MEDS: ARIPiprazole 10 MG TABLET PO SCH (11:04)
[2022-03-07] MEDS: INSULIN SLIDING SCALE (NOVOLOG) 1 VIAL SQ SCH ×2 (19:35→19:58)
[2022-03-07] MEDS: THIAMINE HCL 100 MG TABLET (FP) PO SCH (22:55)
[2022-03-08] MEDS ORDERED: diazePAM 5 MG TABLET PO ONE (06:00)
[2022-03-08] MEDS: methaDONE HCL 40 MG DISPERSABLE TABLET PO SCH (06:48)
[2022-03-08] MEDS: metFORMIN HCL 500 MG TABLET (FP) PO SCH (06:49)
[2022-03-08] MEDS: INSULIN SLIDING SCALE (NOVOLOG) 1 VIAL SQ SCH (06:49)
[2022-03-08 07:10] VITALS: BP 94/52; PULSE 47; RESP 18; TEMP 97.5
[2022-03-08] MEDS: PRENATAL VITAMINS W/ FOLIC ACID TABLET (FP) PO SCH (09:38)
[2022-03-08] MEDS: ARIPiprazole 10 MG TABLET PO SCH (09:38)
[2022-03-08] MEDS: SERTRALINE HCL 50 MG TABLET (FP) PO SCH (09:38)
[2022-03-08] MEDS: levETIRAcetam 500 MG TABLET (FP) PO SCH (09:38)
== END 2022-03-08 09:53 | disposition home or self-care (01) | DRG 773 ==
LOC: YASAS 14:06 → UNDOADMIN 20:50 → Y3N 20:50
PROVIDERS: ADMIT Allergy & Immunology; ATTEND Surgery
PROC: HZ2ZZZZ Detoxification Services for Substance Abuse Treatment (ICD-10-PCS; principal; 2022-03-04)
DX: F13.230 Sedative, hypnotic or anxiolytic dependence with withdrawal, uncomplicated (principal); F11.20 Opioid dependence, uncomplicated; F14.20 Cocaine dependence, uncomplicated; F12.20 Cannabis dependence, uncomplicated; F17.210 Nicotine dependence, cigarettes, uncomplicated; F31.9 Bipolar disorder, unspecified; F41.9 Anxiety disorder, unspecified; U07.1 COVID-19; G40.909 Epilepsy, unspecified, not intractable, without status epilepticus; E11.9 Type 2 diabetes mellitus without complications; Z79.84 Long term (current) use of oral hypoglycemic drugs; Z86.19 Personal history of other infectious and parasitic diseases
CPT/HCPCS: 36415; 80053; 82962; 85027; 86780; 87811; 93005; 93010; C9803-CS; U0003; U0005

== ENCOUNTER 2022-04-04 12:26 | Inpatient (IN) | payer OTHER ==
[2022-04-04 15:21] VITALS: BMI 22.3
[2022-04-04] MEDS ORDERED: ONDANSETRON *ODT* 4 MG TABLET SL PRN (20:55)
[2022-04-04] MEDS ORDERED: hydrOXYzine PAMOATE 25 MG CAPSULE (FP) PO PRN (20:55)
[2022-04-04] MEDS ORDERED: IBUPROFEN 400 MG TABLET (FP) PO PRN (20:55)
[2022-04-04] MEDS ORDERED: BISMUTH SUBSALICYLATE 524 MG/30 ML PO PRN (20:55)
[2022-04-04] MEDS ORDERED: diazePAM 5 MG TABLET PO PRN (20:55)
[2022-04-04] MEDS ORDERED: NALOXONE HCL (KLOXXADO) 8 MG SPRAY NS PRN (20:55)
[2022-04-04] MEDS ORDERED: LOPERAMIDE HCL 2 MG CAPSULE PO PRN (20:55)
[2022-04-04] MEDS ORDERED: NICOTINE 10 MG CARTRIDGE (INHALER) IH PRN (20:55)
[2022-04-04] MEDS ORDERED: POLYETHYLENE GLYCOL (HEALTHYLAX) 3350 17 GM PACKET PO PRN (20:55)
[2022-04-04] MEDS ORDERED: IBUPROFEN 600 MG TABLET (FP) PO PRN (20:55)
[2022-04-04] MEDS ORDERED: MAG HYDROX/AL HYDROX/SIMETH 30 ML UNIT-DOSE CUP PO PRN (20:55)
[2022-04-04] MEDS ORDERED: MAGNESIUM HYDROX 2400MG/30ML ORAL SUSPENSION 30 ML CUP PO PRN (20:55)
[2022-04-04] MEDS ORDERED: ACETAMINOPHEN 325 MG TABLET (FP) PO PRN ×2 (20:55)
[2022-04-04] MEDS ORDERED: BENZOCAINE/MENTHOL (CHLORASEPTIC ) LOZENGE MM PRN (20:55)
[2022-04-04] MEDS: levETIRAcetam 500 MG TABLET (FP) PO SCH (22:46)
[2022-04-04] MEDS: MELATONIN 5 MG TABLETS PO SCH (22:46)
[2022-04-04] MEDS: THIAMINE HCL 100 MG TABLET (FP) PO SCH (22:46)
[2022-04-04] MEDS: diazePAM 5 MG TABLET PO SCH (22:46)
[2022-04-05] MEDS: diazePAM 5 MG TABLET PO SCH ×4 (05:53→22:09)
[2022-04-05] MEDS: PRENATAL VITAMINS W/ FOLIC ACID TABLET (FP) PO SCH (10:27)
[2022-04-05] MEDS: levETIRAcetam 500 MG TABLET (FP) PO SCH ×2 (10:27→22:09)
[2022-04-05] MEDS: NICOTINE 7 MG/24 HOURS TOPICAL PATCH TD SCH (10:29)
[2022-04-05] MEDS: METHOCARBAMOL 500 MG TABLET PO PRN (11:24)
[2022-04-05] MEDS ORDERED: methaDONE HCL 10 MG TABLET PO ONE (11:30)
[2022-04-05] MEDS: THIAMINE HCL 100 MG TABLET (FP) PO SCH (22:09)
[2022-04-05] MEDS: MELATONIN 5 MG TABLETS PO SCH (22:09)
[2022-04-06] MEDS: diazePAM 5 MG TABLET PO SCH ×3 (05:30→22:30)
[2022-04-06] MEDS: PRENATAL VITAMINS W/ FOLIC ACID TABLET (FP) PO SCH (09:33)
[2022-04-06] MEDS: levETIRAcetam 500 MG TABLET (FP) PO SCH ×2 (09:33→22:29)
[2022-04-06] MEDS: methaDONE HCL 40 MG DISPERSABLE TABLET PO SCH (10:22)
[2022-04-06] MEDS: NICOTINE 7 MG/24 HOURS TOPICAL PATCH TD SCH (10:24)
[2022-04-06 11:52] LABS: HEMOGLOBIN 12.4 GM/dL (11.7-16.9); MCH 28.3 pg (25.7-33.7); MCHC 32.6 g/dl (32.0-35.9); MEAN CELL VOLUME 86.9 fl (80-96); PLATELET COUNT 310 10^3/uL (134-434); RBC 4.37 M/mm3 (4.00-5.60); RDW 13.6 % (11.9-15.9); WHITE BLOOD COUNT 11.9 K/mm3 (4.0-10.0)
[2022-04-06 11:59] LABS: CALCIUM 8.6 mg/dL (8.5-10.1)
[2022-04-06 12:00] LABS: ALBUMIN 2.8 g/dl (3.4-5.0); BLOOD UREA NITROGEN 6.8 mg/dL (7-18)
[2022-04-06 12:03] LABS: CREATININE 0.6 mg/dL (0.55-1.3)
[2022-04-06 12:05] LABS: BILIRUBIN,TOTAL 0.6 mg/dL (0.2-1); TOT PROT 6.2 g/dl (6.4-8.2)
[2022-04-06] MEDS: THIAMINE HCL 100 MG TABLET (FP) PO SCH (22:29)
[2022-04-06] MEDS: METHOCARBAMOL 500 MG TABLET PO PRN (22:29)
[2022-04-06] MEDS: MELATONIN 5 MG TABLETS PO SCH (22:29)
[2022-04-07] MEDS: methaDONE HCL 40 MG DISPERSABLE TABLET PO SCH (05:22)
[2022-04-07] MEDS: diazePAM 5 MG TABLET PO SCH ×2 (05:27→17:32)
[2022-04-07] MEDS: PRENATAL VITAMINS W/ FOLIC ACID TABLET (FP) PO SCH (09:32)
[2022-04-07] MEDS: levETIRAcetam 500 MG TABLET (FP) PO SCH ×2 (09:32→22:49)
[2022-04-07] MEDS: NICOTINE 7 MG/24 HOURS TOPICAL PATCH TD SCH (09:32)
[2022-04-07] MEDS: SERTRALINE HCL 50 MG TABLET (FP) PO SCH (09:32)
[2022-04-07] MEDS: ARIPiprazole 10 MG TABLET PO SCH (09:37)
[2022-04-07] MEDS: METHOCARBAMOL 500 MG TABLET PO PRN (14:18)
[2022-04-07] MEDS: DICYCLOMINE HCL 10 MG CAPSULE PO PRN ×2 (14:31→22:49)
[2022-04-07 17:04] LABS: URINE APPEARANCE CLEAR; URINE BILIRUBIN NEGATIVE (NEGATIVE); URINE COLOR YELLOW; URINE GLUCOSE (UA) NEGATIVE (NEGATIVE); URINE KETONE NEGATIVE (NEGATIVE); URINE LEUK ESTERASE NEGATIVE (NEGATIVE); URINE NITRITE NEGATIVE (NEGATIVE); URINE PROTEIN NEGATIVE (NEGATIVE); URINE UROBILINOGEN 0.2 mg/dL (0.2-1.0)
[2022-04-07] MEDS ORDERED: TRIMETHOBENZAMIDE HCL 200MG/2ML INJ IM ONE (20:00)
[2022-04-07] MEDS: THIAMINE HCL 100 MG TABLET (FP) PO SCH (22:49)
[2022-04-07] MEDS: MELATONIN 5 MG TABLETS PO SCH (22:49)
[2022-04-08] MEDS ORDERED: diazePAM 5 MG TABLET PO ONE (06:00)
[2022-04-08] MEDS: methaDONE HCL 40 MG DISPERSABLE TABLET PO SCH (06:11)
[2022-04-08 07:11] VITALS: RESP 16
[2022-04-08] MEDS: PRENATAL VITAMINS W/ FOLIC ACID TABLET (FP) PO SCH (10:09)
[2022-04-08] MEDS: levETIRAcetam 500 MG TABLET (FP) PO SCH (10:09)
[2022-04-08] MEDS: ARIPiprazole 10 MG TABLET PO SCH (10:10)
[2022-04-08] MEDS: SERTRALINE HCL 50 MG TABLET (FP) PO SCH (10:10)
[2022-04-08] MEDS: NICOTINE 7 MG/24 HOURS TOPICAL PATCH TD SCH (10:25)
[2022-04-08] MEDS: DICYCLOMINE HCL 10 MG CAPSULE PO PRN (11:05)
[2022-04-08 13:03] VITALS: BP 112/70; PULSE 76; TEMP 98.6
== END 2022-04-08 14:19 | disposition other institution (70) | DRG 773 ==
LOC: YASAS 12:26 → Y3N 21:44
PROVIDERS: ADMIT Allergy & Immunology; ATTEND Surgery
PROC: HZ2ZZZZ Detoxification Services for Substance Abuse Treatment (ICD-10-PCS; principal; 2022-04-04)
DX: F10.230 Alcohol dependence with withdrawal, uncomplicated (principal); F11.20 Opioid dependence, uncomplicated; F13.20 Sedative, hypnotic or anxiolytic dependence, uncomplicated; F14.20 Cocaine dependence, uncomplicated; F12.20 Cannabis dependence, uncomplicated; F17.210 Nicotine dependence, cigarettes, uncomplicated; F31.9 Bipolar disorder, unspecified; F19.24 Other psychoactive substance dependence with psychoactive substance-induced mood disorder; G40.909 Epilepsy, unspecified, not intractable, without status epilepticus; E11.9 Type 2 diabetes mellitus without complications; Z79.84 Long term (current) use of oral hypoglycemic drugs; B18.2 Chronic viral hepatitis C; Z86.19 Personal history of other infectious and parasitic diseases
CPT/HCPCS: 36415; 80053; 81003; 82962; 85027; 86780; 87811; C9803-CS; Q0162; U0003; U0005

== ENCOUNTER 2022-04-08 14:30 | Inpatient (IN) | payer OTHER ==
[2022-04-08] MEDS ORDERED: NICOTINE 7 MG/24 HOURS TOPICAL PATCH TD PRN (16:27)
[2022-04-08] MEDS ORDERED: ACETAMINOPHEN 325 MG TABLET (FP) PO PRN (16:27)
[2022-04-08] MEDS ORDERED: LOPERAMIDE HCL 2 MG CAPSULE PO PRN (16:27)
[2022-04-08] MEDS ORDERED: BENZOCAINE/MENTHOL (CHLORASEPTIC ) LOZENGE MM PRN (16:27)
[2022-04-08] MEDS ORDERED: IBUPROFEN 400 MG TABLET (FP) PO PRN (16:27)
[2022-04-08] MEDS ORDERED: MAGNESIUM HYDROX 2400MG/30ML ORAL SUSPENSION 30 ML CUP PO PRN (16:27)
[2022-04-08] MEDS ORDERED: MAG HYDROX/AL HYDROX/SIMETH 30 ML UNIT-DOSE CUP PO PRN (16:27)
[2022-04-08] MEDS ORDERED: POLYETHYLENE GLYCOL (HEALTHYLAX) 3350 17 GM PACKET PO PRN (16:27)
[2022-04-08] MEDS ORDERED: guaiFENesin 200 MG/10 ML 10 ML UNIT-DOSE CUPS PO PRN (16:27)
[2022-04-08] MEDS ORDERED: ONDANSETRON *ODT* 4 MG TABLET SL PRN (16:33)
[2022-04-08] MEDS: PANTOPRAZOLE 20 MG TABLET PO SCH (17:00)
[2022-04-08] MEDS: MELATONIN 5 MG TABLETS PO SCH (21:32)
[2022-04-08] MEDS: THIAMINE HCL 100 MG TABLET (FP) PO SCH (21:32)
[2022-04-08] MEDS: levETIRAcetam 500 MG TABLET (FP) PO SCH (21:33)
[2022-04-08] MEDS ORDERED: PATIENT'S OWN MEDICATION (NON-FORMULARY) (Metformin Hcl [Metformin Er Osmotic] 1,000 MG Ta PO SCH (22:00)
[2022-04-09] MEDS: methaDONE HCL 40 MG DISPERSABLE TABLET PO SCH (06:34)
[2022-04-09] MEDS: PRENATAL VITAMINS W/ FOLIC ACID TABLET (FP) PO SCH (09:30)
[2022-04-09] MEDS ORDERED: ARIPiprazole 5 MG TABLET ONE (09:30)
[2022-04-09] MEDS: ARIPiprazole 10 MG TABLET PO SCH (09:30)
[2022-04-09] MEDS: levETIRAcetam 500 MG TABLET (FP) PO SCH ×2 (09:30→21:08)
[2022-04-09] MEDS: PANTOPRAZOLE 20 MG TABLET PO SCH (09:31)
[2022-04-09] MEDS: SERTRALINE HCL 50 MG TABLET (FP) PO SCH (09:31)
[2022-04-09] MEDS: THIAMINE HCL 100 MG TABLET (FP) PO SCH (21:08)
[2022-04-09] MEDS: MELATONIN 5 MG TABLETS PO SCH (21:08)
[2022-04-09] MEDS: RIFAXIMIN 550 MG TABLET PO SCH (21:09)
[2022-04-10] MEDS: methaDONE HCL 40 MG DISPERSABLE TABLET PO SCH (06:07)
[2022-04-10] MEDS ORDERED: ARIPiprazole 5 MG TABLET ONE (08:41)
[2022-04-10] MEDS: PANTOPRAZOLE 20 MG TABLET PO SCH (10:01)
[2022-04-10] MEDS: levETIRAcetam 500 MG TABLET (FP) PO SCH ×2 (10:01→21:12)
[2022-04-10] MEDS: RIFAXIMIN 550 MG TABLET PO SCH ×2 (10:02→21:12)
[2022-04-10] MEDS: ARIPiprazole 10 MG TABLET PO SCH (10:02)
[2022-04-10] MEDS: PRENATAL VITAMINS W/ FOLIC ACID TABLET (FP) PO SCH (10:03)
[2022-04-10] MEDS: SERTRALINE HCL 50 MG TABLET (FP) PO SCH (10:03)
[2022-04-10] MEDS: MELATONIN 5 MG TABLETS PO SCH (21:11)
[2022-04-10] MEDS: hydrOXYzine PAMOATE 25 MG CAPSULE (FP) PO PRN (21:12)
[2022-04-10] MEDS: THIAMINE HCL 100 MG TABLET (FP) PO SCH (21:12)
[2022-04-11] MEDS: methaDONE HCL 40 MG DISPERSABLE TABLET PO SCH (06:33)
[2022-04-11] MEDS: SERTRALINE HCL 50 MG TABLET (FP) PO SCH (09:49)
[2022-04-11] MEDS: PANTOPRAZOLE 20 MG TABLET PO SCH (09:49)
[2022-04-11] MEDS: PRENATAL VITAMINS W/ FOLIC ACID TABLET (FP) PO SCH (09:49)
[2022-04-11] MEDS: ARIPiprazole 10 MG TABLET PO SCH (09:49)
[2022-04-11] MEDS: levETIRAcetam 500 MG TABLET (FP) PO SCH ×2 (09:49→21:23)
[2022-04-11] MEDS: RIFAXIMIN 550 MG TABLET PO SCH ×2 (09:50→21:23)
[2022-04-11] MEDS: MELATONIN 5 MG TABLETS PO SCH (21:23)
[2022-04-11] MEDS: hydrOXYzine PAMOATE 25 MG CAPSULE (FP) PO PRN (21:23)
[2022-04-11] MEDS: THIAMINE HCL 100 MG TABLET (FP) PO SCH (21:23)
[2022-04-12] MEDS: methaDONE HCL 40 MG DISPERSABLE TABLET PO SCH (06:00)
[2022-04-12] MEDS: SERTRALINE HCL 50 MG TABLET (FP) PO SCH (10:03)
[2022-04-12] MEDS: levETIRAcetam 500 MG TABLET (FP) PO SCH ×2 (10:03→21:22)
[2022-04-12] MEDS: PANTOPRAZOLE 20 MG TABLET PO SCH (10:03)
[2022-04-12] MEDS: RIFAXIMIN 550 MG TABLET PO SCH ×2 (10:04→21:22)
[2022-04-12] MEDS: ARIPiprazole 10 MG TABLET PO SCH (10:04)
[2022-04-12] MEDS: PRENATAL VITAMINS W/ FOLIC ACID TABLET (FP) PO SCH (10:04)
[2022-04-12] MEDS: MELATONIN 5 MG TABLETS PO SCH (21:22)
[2022-04-12] MEDS: hydrOXYzine PAMOATE 25 MG CAPSULE (FP) PO PRN (21:22)
[2022-04-12] MEDS: THIAMINE HCL 100 MG TABLET (FP) PO SCH (21:22)
[2022-04-13] MEDS: methaDONE HCL 40 MG DISPERSABLE TABLET PO SCH (06:33)
[2022-04-13] MEDS: PRENATAL VITAMINS W/ FOLIC ACID TABLET (FP) PO SCH (09:04)
[2022-04-13] MEDS: PANTOPRAZOLE 20 MG TABLET PO SCH (09:04)
[2022-04-13] MEDS: levETIRAcetam 500 MG TABLET (FP) PO SCH ×2 (09:04→21:29)
[2022-04-13] MEDS: ARIPiprazole 10 MG TABLET PO SCH (09:04)
[2022-04-13] MEDS: SERTRALINE HCL 50 MG TABLET (FP) PO SCH (09:05)
[2022-04-13] MEDS: RIFAXIMIN 550 MG TABLET PO SCH ×2 (09:05→21:29)
[2022-04-13] MEDS: hydrOXYzine PAMOATE 25 MG CAPSULE (FP) PO PRN (21:28)
[2022-04-13] MEDS: THIAMINE HCL 100 MG TABLET (FP) PO SCH (21:28)
[2022-04-13] MEDS: MELATONIN 5 MG TABLETS PO SCH (21:29)
[2022-04-14] MEDS: methaDONE HCL 40 MG DISPERSABLE TABLET PO SCH (06:13)
[2022-04-14] MEDS ORDERED: ARIPiprazole 5 MG TABLET ONE (08:35)
[2022-04-14] MEDS: levETIRAcetam 500 MG TABLET (FP) PO SCH ×2 (09:02→21:14)
[2022-04-14] MEDS: RIFAXIMIN 550 MG TABLET PO SCH ×2 (09:02→21:16)
[2022-04-14] MEDS: ARIPiprazole 10 MG TABLET PO SCH (09:02)
[2022-04-14] MEDS: PANTOPRAZOLE 20 MG TABLET PO SCH (09:02)
[2022-04-14] MEDS: SERTRALINE HCL 50 MG TABLET (FP) PO SCH (09:02)
[2022-04-14] MEDS: PRENATAL VITAMINS W/ FOLIC ACID TABLET (FP) PO SCH (09:02)
[2022-04-14] MEDS: hydrOXYzine PAMOATE 25 MG CAPSULE (FP) PO PRN (21:14)
[2022-04-14] MEDS: MELATONIN 5 MG TABLETS PO SCH (21:14)
[2022-04-14] MEDS: THIAMINE HCL 100 MG TABLET (FP) PO SCH (21:14)
[2022-04-15] MEDS: methaDONE HCL 40 MG DISPERSABLE TABLET PO SCH (06:24)
[2022-04-15] MEDS: levETIRAcetam 500 MG TABLET (FP) PO SCH ×2 (09:36→21:14)
[2022-04-15] MEDS: PRENATAL VITAMINS W/ FOLIC ACID TABLET (FP) PO SCH (09:37)
[2022-04-15] MEDS: ARIPiprazole 10 MG TABLET PO SCH (09:37)
[2022-04-15] MEDS: SERTRALINE HCL 50 MG TABLET (FP) PO SCH (09:37)
[2022-04-15] MEDS: PANTOPRAZOLE 20 MG TABLET PO SCH (09:37)
[2022-04-15] MEDS: MELATONIN 5 MG TABLETS PO SCH (21:14)
[2022-04-15] MEDS: THIAMINE HCL 100 MG TABLET (FP) PO SCH (21:14)
[2022-04-15] MEDS: hydrOXYzine PAMOATE 25 MG CAPSULE (FP) PO PRN (21:14)
[2022-04-16] MEDS: P-EPHED 60MG/TRIPROLIDI 2.5MG TABLET PO PRN (06:29)
[2022-04-16] MEDS: methaDONE HCL 40 MG DISPERSABLE TABLET PO SCH (06:29)
[2022-04-16] MEDS ORDERED: ARIPiprazole 5 MG TABLET ONE (08:43)
[2022-04-16] MEDS: PANTOPRAZOLE 20 MG TABLET PO SCH (09:34)
[2022-04-16] MEDS: SERTRALINE HCL 50 MG TABLET (FP) PO SCH (09:34)
[2022-04-16] MEDS: ARIPiprazole 10 MG TABLET PO SCH (09:34)
[2022-04-16] MEDS: PRENATAL VITAMINS W/ FOLIC ACID TABLET (FP) PO SCH (09:34)
[2022-04-16] MEDS: levETIRAcetam 500 MG TABLET (FP) PO SCH ×2 (09:34→21:15)
[2022-04-16] MEDS: MELATONIN 5 MG TABLETS PO SCH (21:14)
[2022-04-16] MEDS: THIAMINE HCL 100 MG TABLET (FP) PO SCH (21:14)
[2022-04-16] MEDS: hydrOXYzine PAMOATE 25 MG CAPSULE (FP) PO PRN (21:15)
[2022-04-16] MEDS: RIFAXIMIN 550 MG TABLET PO SCH (21:15)
[2022-04-17] MEDS: methaDONE HCL 40 MG DISPERSABLE TABLET PO SCH (06:11)
[2022-04-17] MEDS ORDERED: ARIPiprazole 5 MG TABLET ONE (08:43)
[2022-04-17] MEDS: SERTRALINE HCL 50 MG TABLET (FP) PO SCH (10:00)
[2022-04-17] MEDS: levETIRAcetam 500 MG TABLET (FP) PO SCH ×2 (10:00→22:12)
[2022-04-17] MEDS: PRENATAL VITAMINS W/ FOLIC ACID TABLET (FP) PO SCH (10:00)
[2022-04-17] MEDS: PANTOPRAZOLE 20 MG TABLET PO SCH (10:00)
[2022-04-17] MEDS: RIFAXIMIN 550 MG TABLET PO SCH ×2 (10:00→22:13)
[2022-04-17] MEDS: ARIPiprazole 10 MG TABLET PO SCH (10:00)
[2022-04-17] MEDS: NICOTINE 10 MG CARTRIDGE (INHALER) IH PRN (10:02)
[2022-04-17] MEDS: MELATONIN 5 MG TABLETS PO SCH (22:12)
[2022-04-17] MEDS: THIAMINE HCL 100 MG TABLET (FP) PO SCH (22:12)
[2022-04-17] MEDS ORDERED: INSULIN (NOVOLOG) ASPART 100 UNITS/ML 10ML VIAL ONE (22:43)
[2022-04-18] MEDS: methaDONE HCL 40 MG DISPERSABLE TABLET PO SCH (06:11)
[2022-04-18] MEDS: P-EPHED 60MG/TRIPROLIDI 2.5MG TABLET PO PRN (06:12)
[2022-04-18] MEDS ORDERED: ARIPiprazole 5 MG TABLET ONE (08:36)
[2022-04-18] MEDS: ARIPiprazole 10 MG TABLET PO SCH (09:53)
[2022-04-18] MEDS: SERTRALINE HCL 50 MG TABLET (FP) PO SCH (09:54)
[2022-04-18] MEDS: RIFAXIMIN 550 MG TABLET PO SCH ×2 (09:54→21:06)
[2022-04-18] MEDS: levETIRAcetam 500 MG TABLET (FP) PO SCH ×2 (09:54→21:05)
[2022-04-18] MEDS: PRENATAL VITAMINS W/ FOLIC ACID TABLET (FP) PO SCH (09:54)
[2022-04-18] MEDS: PANTOPRAZOLE 20 MG TABLET PO SCH (09:54)
[2022-04-18] MEDS: THIAMINE HCL 100 MG TABLET (FP) PO SCH (21:05)
[2022-04-18] MEDS: MELATONIN 5 MG TABLETS PO SCH (21:05)
[2022-04-18] MEDS: hydrOXYzine PAMOATE 25 MG CAPSULE (FP) PO PRN (21:06)
[2022-04-19] MEDS: methaDONE HCL 40 MG DISPERSABLE TABLET PO SCH (06:04)
[2022-04-19] MEDS ORDERED: ARIPiprazole 5 MG TABLET ONE (08:23)
[2022-04-19] MEDS: ARIPiprazole 10 MG TABLET PO SCH (09:24)
[2022-04-19] MEDS: levETIRAcetam 500 MG TABLET (FP) PO SCH ×2 (09:25→21:07)
[2022-04-19] MEDS: SERTRALINE HCL 50 MG TABLET (FP) PO SCH (09:25)
[2022-04-19] MEDS: RIFAXIMIN 550 MG TABLET PO SCH ×2 (09:25→21:07)
[2022-04-19] MEDS: PANTOPRAZOLE 20 MG TABLET PO SCH (09:25)
[2022-04-19] MEDS: PRENATAL VITAMINS W/ FOLIC ACID TABLET (FP) PO SCH (09:25)
[2022-04-19] MEDS: THIAMINE HCL 100 MG TABLET (FP) PO SCH (21:07)
[2022-04-19] MEDS: hydrOXYzine PAMOATE 25 MG CAPSULE (FP) PO PRN (21:07)
[2022-04-19] MEDS: MELATONIN 5 MG TABLETS PO SCH (21:07)
[2022-04-20] MEDS: methaDONE HCL 40 MG DISPERSABLE TABLET PO SCH (06:18)
[2022-04-20] MEDS: SERTRALINE HCL 50 MG TABLET (FP) PO SCH (10:16)
[2022-04-20] MEDS: levETIRAcetam 500 MG TABLET (FP) PO SCH ×2 (10:16→21:37)
[2022-04-20] MEDS: PANTOPRAZOLE 20 MG TABLET PO SCH (10:16)
[2022-04-20] MEDS: RIFAXIMIN 550 MG TABLET PO SCH ×2 (10:17→21:12)
[2022-04-20] MEDS: PRENATAL VITAMINS W/ FOLIC ACID TABLET (FP) PO SCH (10:17)
[2022-04-20] MEDS: ARIPiprazole 10 MG TABLET PO SCH (10:17)
[2022-04-20] MEDS: MELATONIN 5 MG TABLETS PO SCH (21:12)
[2022-04-20] MEDS: THIAMINE HCL 100 MG TABLET (FP) PO SCH (21:12)
[2022-04-20] MEDS: hydrOXYzine PAMOATE 25 MG CAPSULE (FP) PO PRN (21:12)
[2022-04-21] MEDS: methaDONE HCL 40 MG DISPERSABLE TABLET PO SCH (06:12)
[2022-04-21] MEDS ORDERED: ARIPiprazole 5 MG TABLET ONE (08:36)
[2022-04-21] MEDS: ARIPiprazole 10 MG TABLET PO SCH (09:50)
[2022-04-21] MEDS: RIFAXIMIN 550 MG TABLET PO SCH ×2 (09:50→21:38)
[2022-04-21] MEDS: levETIRAcetam 500 MG TABLET (FP) PO SCH ×2 (09:50→21:38)
[2022-04-21] MEDS: PANTOPRAZOLE 20 MG TABLET PO SCH (09:50)
[2022-04-21] MEDS: SERTRALINE HCL 50 MG TABLET (FP) PO SCH (09:50)
[2022-04-21] MEDS: PRENATAL VITAMINS W/ FOLIC ACID TABLET (FP) PO SCH (09:50)
[2022-04-21] MEDS: hydrOXYzine PAMOATE 25 MG CAPSULE (FP) PO PRN (21:38)
[2022-04-21] MEDS: MELATONIN 5 MG TABLETS PO SCH (21:38)
[2022-04-21] MEDS: THIAMINE HCL 100 MG TABLET (FP) PO SCH (21:38)
[2022-04-22] MEDS: methaDONE HCL 40 MG DISPERSABLE TABLET PO SCH (06:14)
[2022-04-22] MEDS ORDERED: ARIPiprazole 5 MG TABLET ONE (08:40)
[2022-04-22] MEDS: levETIRAcetam 500 MG TABLET (FP) PO SCH ×2 (09:56→21:26)
[2022-04-22] MEDS: PANTOPRAZOLE 20 MG TABLET PO SCH (09:56)
[2022-04-22] MEDS: PRENATAL VITAMINS W/ FOLIC ACID TABLET (FP) PO SCH (09:56)
[2022-04-22] MEDS: SERTRALINE HCL 50 MG TABLET (FP) PO SCH (09:56)
[2022-04-22] MEDS: ARIPiprazole 10 MG TABLET PO SCH (09:56)
[2022-04-22] MEDS: RIFAXIMIN 550 MG TABLET PO SCH ×2 (09:57→21:26)
[2022-04-22] MEDS: NICOTINE 10 MG CARTRIDGE (INHALER) IH PRN (13:04)
[2022-04-22] MEDS: THIAMINE HCL 100 MG TABLET (FP) PO SCH (21:26)
[2022-04-22] MEDS: hydrOXYzine PAMOATE 25 MG CAPSULE (FP) PO PRN (21:26)
[2022-04-22] MEDS: MELATONIN 5 MG TABLETS PO SCH (21:26)
[2022-04-23] MEDS: methaDONE HCL 40 MG DISPERSABLE TABLET PO SCH (06:13)
[2022-04-23] MEDS ORDERED: ARIPiprazole 5 MG TABLET ONE (08:48)
[2022-04-23] MEDS: ARIPiprazole 10 MG TABLET PO SCH (09:57)
[2022-04-23] MEDS: SERTRALINE HCL 50 MG TABLET (FP) PO SCH (09:57)
[2022-04-23] MEDS: levETIRAcetam 500 MG TABLET (FP) PO SCH ×2 (09:57→21:06)
[2022-04-23] MEDS: PANTOPRAZOLE 20 MG TABLET PO SCH (09:57)
[2022-04-23] MEDS: PRENATAL VITAMINS W/ FOLIC ACID TABLET (FP) PO SCH (09:57)
[2022-04-23] MEDS: RIFAXIMIN 550 MG TABLET PO SCH (09:58)
[2022-04-23] MEDS: MELATONIN 5 MG TABLETS PO SCH (21:06)
[2022-04-23] MEDS: THIAMINE HCL 100 MG TABLET (FP) PO SCH (21:06)
[2022-04-24] MEDS: methaDONE HCL 40 MG DISPERSABLE TABLET PO SCH (06:29)
[2022-04-24] MEDS ORDERED: ARIPiprazole 5 MG TABLET ONE (08:37)
[2022-04-24] MEDS: PANTOPRAZOLE 20 MG TABLET PO SCH (09:52)
[2022-04-24] MEDS: PRENATAL VITAMINS W/ FOLIC ACID TABLET (FP) PO SCH (09:52)
[2022-04-24] MEDS: levETIRAcetam 500 MG TABLET (FP) PO SCH ×2 (09:52→21:23)
[2022-04-24] MEDS: SERTRALINE HCL 50 MG TABLET (FP) PO SCH (09:52)
[2022-04-24] MEDS: ARIPiprazole 10 MG TABLET PO SCH (09:53)
[2022-04-24] MEDS: MELATONIN 5 MG TABLETS PO SCH (21:22)
[2022-04-24] MEDS: THIAMINE HCL 100 MG TABLET (FP) PO SCH (21:22)
[2022-04-24] MEDS: hydrOXYzine PAMOATE 25 MG CAPSULE (FP) PO PRN (21:23)
[2022-04-25] MEDS: methaDONE HCL 40 MG DISPERSABLE TABLET PO SCH (06:23)
[2022-04-25] MEDS: ARIPiprazole 10 MG TABLET PO SCH (10:02)
[2022-04-25] MEDS: levETIRAcetam 500 MG TABLET (FP) PO SCH ×2 (10:03→21:34)
[2022-04-25] MEDS: PANTOPRAZOLE 20 MG TABLET PO SCH (10:03)
[2022-04-25] MEDS: SERTRALINE HCL 50 MG TABLET (FP) PO SCH (10:03)
[2022-04-25] MEDS: PRENATAL VITAMINS W/ FOLIC ACID TABLET (FP) PO SCH (10:03)
[2022-04-25] MEDS: hydrOXYzine PAMOATE 25 MG CAPSULE (FP) PO PRN (21:34)
[2022-04-25] MEDS: THIAMINE HCL 100 MG TABLET (FP) PO SCH (21:34)
[2022-04-25] MEDS: MELATONIN 5 MG TABLETS PO SCH (21:34)
[2022-04-26] MEDS: methaDONE HCL 40 MG DISPERSABLE TABLET PO SCH (06:27)
[2022-04-26] MEDS: ARIPiprazole 10 MG TABLET PO SCH (09:48)
[2022-04-26] MEDS: PRENATAL VITAMINS W/ FOLIC ACID TABLET (FP) PO SCH (09:48)
[2022-04-26] MEDS: levETIRAcetam 500 MG TABLET (FP) PO SCH ×2 (09:48→21:28)
[2022-04-26] MEDS: PANTOPRAZOLE 20 MG TABLET PO SCH (09:48)
[2022-04-26] MEDS: SERTRALINE HCL 50 MG TABLET (FP) PO SCH (09:48)
[2022-04-26] MEDS: NICOTINE 10 MG CARTRIDGE (INHALER) IH PRN (13:45)
[2022-04-26] MEDS: hydrOXYzine PAMOATE 25 MG CAPSULE (FP) PO PRN (21:28)
[2022-04-26] MEDS: THIAMINE HCL 100 MG TABLET (FP) PO SCH (21:28)
[2022-04-26] MEDS: MELATONIN 5 MG TABLETS PO SCH (21:29)
[2022-04-27] MEDS: methaDONE HCL 40 MG DISPERSABLE TABLET PO SCH (06:28)
[2022-04-27 06:59] VITALS: BP 101/65; PULSE 54; RESP 20; TEMP 98.7
[2022-04-27] MEDS: ARIPiprazole 10 MG TABLET PO SCH (09:45)
[2022-04-27] MEDS: levETIRAcetam 500 MG TABLET (FP) PO SCH (09:45)
[2022-04-27] MEDS: PANTOPRAZOLE 20 MG TABLET PO SCH (09:45)
[2022-04-27] MEDS: PRENATAL VITAMINS W/ FOLIC ACID TABLET (FP) PO SCH (09:45)
[2022-04-27] MEDS: NICOTINE 10 MG CARTRIDGE (INHALER) IH PRN (09:46)
[2022-04-27] MEDS: SERTRALINE HCL 50 MG TABLET (FP) PO SCH (09:46)
[2022-04-28] MEDS ORDERED: methaDONE HCL 10 MG TABLET PO SCH (06:00)
[2022-05-01] MEDS ORDERED: methaDONE 80 MG, methaDONE 20 MG PO SCH (06:00)
[2022-05-01] MEDS ORDERED: methaDONE HCL 10 MG TABLET PO SCH (06:00)
== END 2022-04-27 16:20 | disposition home or self-care (01) | DRG 772 ==
LOC: YASAS 14:30 → Y3E 14:34
PROVIDERS: ADMIT Allergy & Immunology; ATTEND Psychiatry & Neurology Pain Medicine
PROC: HZ42ZZZ Group Counseling for Substance Abuse Treatment, Cognitive-Behavioral (ICD-10-PCS; principal; 2022-04-08)
DX: F11.20 Opioid dependence, uncomplicated (principal); F14.20 Cocaine dependence, uncomplicated; F13.20 Sedative, hypnotic or anxiolytic dependence, uncomplicated; F10.20 Alcohol dependence, uncomplicated; F17.210 Nicotine dependence, cigarettes, uncomplicated; F25.1 Schizoaffective disorder, depressive type; F19.24 Other psychoactive substance dependence with psychoactive substance-induced mood disorder; E72.20 Disorder of urea cycle metabolism, unspecified; E11.9 Type 2 diabetes mellitus without complications; Z79.84 Long term (current) use of oral hypoglycemic drugs; G40.909 Epilepsy, unspecified, not intractable, without status epilepticus; B18.2 Chronic viral hepatitis C; R63.4 Abnormal weight loss; Z68.21 Body mass index [BMI] 21.0-21.9, adult
CPT/HCPCS: 36415; 82140; 82962; 86803; 87522

== ENCOUNTER 2022-05-20 16:35 | Inpatient (IN) | payer OTHER ==
[2022-05-20 17:42] VITALS: BMI 20.2
[2022-05-20] MEDS ORDERED: MAGNESIUM HYDROX 2400MG/30ML ORAL SUSPENSION 30 ML CUP PO PRN (18:49)
[2022-05-20] MEDS ORDERED: IBUPROFEN 600 MG TABLET (FP) PO PRN (18:49)
[2022-05-20] MEDS ORDERED: ACETAMINOPHEN 325 MG TABLET (FP) PO PRN (18:49)
[2022-05-20] MEDS ORDERED: BISMUTH SUBSALICYLATE 524 MG/30 ML PO PRN (18:49)
[2022-05-20] MEDS ORDERED: IBUPROFEN 400 MG TABLET (FP) PO PRN (18:49)
[2022-05-20] MEDS ORDERED: P-EPHED 60MG/TRIPROLIDI 2.5MG TABLET PO PRN (18:49)
[2022-05-20] MEDS ORDERED: DICYCLOMINE HCL 10 MG CAPSULE PO PRN (18:49)
[2022-05-20] MEDS ORDERED: NALOXONE HCL (KLOXXADO) 8 MG SPRAY NS PRN (18:49)
[2022-05-20] MEDS ORDERED: POLYETHYLENE GLYCOL (HEALTHYLAX) 3350 17 GM PACKET PO PRN (18:49)
[2022-05-20] MEDS ORDERED: MAG HYDROX/AL HYDROX/SIMETH 30 ML UNIT-DOSE CUP PO PRN (18:49)
[2022-05-20] MEDS ORDERED: ONDANSETRON *ODT* 4 MG TABLET SL PRN (18:49)
[2022-05-20] MEDS ORDERED: LOPERAMIDE HCL 2 MG CAPSULE PO PRN (18:49)
[2022-05-20] MEDS ORDERED: NALOXONE HCL 0.4 MG/ML VIAL IM PRN (18:49)
[2022-05-20] MEDS ORDERED: diazePAM 5 MG TABLET PO ONE (18:52)
[2022-05-20] MEDS ORDERED: diazePAM 5 MG TABLET PO PRN (18:52)
[2022-05-20] MEDS ORDERED: diazePAM 5 MG TABLET ONE (20:11)
[2022-05-20] MEDS: levETIRAcetam 500 MG TABLET (FP) PO SCH (23:08)
[2022-05-20] MEDS: THIAMINE HCL 100 MG TABLET (FP) PO SCH (23:08)
[2022-05-20] MEDS: MELATONIN 5 MG TABLETS PO PRN (23:08)
[2022-05-20] MEDS: diazePAM 5 MG TABLET PO SCH (23:08)
[2022-05-20] MEDS: METHOCARBAMOL 500 MG TABLET PO PRN (23:08)
[2022-05-20] MEDS: ACETAMINOPHEN 325 MG TABLET (FP) PO PRN (23:10)
[2022-05-21] MEDS: diazePAM 5 MG TABLET PO SCH ×4 (05:27→22:30)
[2022-05-21] MEDS ORDERED: methaDONE HCL 10 MG TABLET PO SCH (09:30)
[2022-05-21] MEDS: PRENATAL VITAMINS W/ FOLIC ACID TABLET (FP) PO SCH (10:22)
[2022-05-21] MEDS: PANTOPRAZOLE 20 MG TABLET PO SCH (10:22)
[2022-05-21] MEDS: levETIRAcetam 500 MG TABLET (FP) PO SCH ×2 (10:22→22:30)
[2022-05-21] MEDS: NICOTINE 14 MG/24 HOURS TOPICAL PATCH TD SCH (10:44)
[2022-05-21] MEDS: METHOCARBAMOL 500 MG TABLET PO PRN ×2 (11:59→17:46)
[2022-05-21] MEDS: BENZOCAINE/MENTHOL (CHLORASEPTIC ) LOZENGE MM PRN (12:01)
[2022-05-21] MEDS: guaiFENesin 200 MG/10 ML 10 ML UNIT-DOSE CUPS PO PRN ×2 (12:01→22:34)
[2022-05-21 13:38] LABS: HEMATOCRIT 31.2 % (35.4-49); HEMOGLOBIN 10.8 GM/dL (11.7-16.9); MCH 29.4 pg (25.7-33.7); MCHC 34.6 g/dl (32.0-35.9); MEAN CELL VOLUME 85.1 fl (80-96); MEAN PLT VOLUME 7.3 fl (7.5-11.1); PLATELET COUNT 329 10^3/uL (134-434); RBC 3.67 M/mm3 (4.00-5.60); RDW 15.2 % (11.9-15.9); WHITE BLOOD COUNT 5.5 K/mm3 (4.0-10.0)
[2022-05-21 14:37] LABS: CALCIUM 8.1 mg/dL (8.5-10.1)
[2022-05-21 14:38] LABS: ALBUMIN 2.6 g/dl (3.4-5.0)
[2022-05-21 14:41] LABS: CREATININE 0.5 mg/dL (0.55-1.3)
[2022-05-21 14:43] LABS: BILIRUBIN,TOTAL 0.2 mg/dL (0.2-1); TOT PROT 5.9 g/dl (6.4-8.2)
[2022-05-21] MEDS: MELATONIN 5 MG TABLETS PO PRN (22:30)
[2022-05-21] MEDS: THIAMINE HCL 100 MG TABLET (FP) PO SCH (22:30)
[2022-05-22] MEDS: diazePAM 5 MG TABLET PO SCH ×3 (05:02→22:38)
[2022-05-22] MEDS: ACETAMINOPHEN 325 MG TABLET (FP) PO PRN (05:06)
[2022-05-22] MEDS: NICOTINE 14 MG/24 HOURS TOPICAL PATCH TD SCH (10:09)
[2022-05-22] MEDS: PRENATAL VITAMINS W/ FOLIC ACID TABLET (FP) PO SCH (10:09)
[2022-05-22] MEDS: levETIRAcetam 500 MG TABLET (FP) PO SCH ×2 (10:09→22:38)
[2022-05-22] MEDS: SERTRALINE HCL 50 MG TABLET (FP) PO SCH (10:09)
[2022-05-22] MEDS: ARIPiprazole 5 MG TABLET PO SCH (10:09)
[2022-05-22] MEDS: PANTOPRAZOLE 20 MG TABLET PO SCH (10:09)
[2022-05-22] MEDS: BENZOCAINE/MENTHOL (CHLORASEPTIC ) LOZENGE MM PRN (10:12)
[2022-05-22] MEDS: guaiFENesin 200 MG/10 ML 10 ML UNIT-DOSE CUPS PO PRN (10:12)
[2022-05-22] MEDS: THIAMINE HCL 100 MG TABLET (FP) PO SCH (22:38)
[2022-05-23] MEDS: diazePAM 5 MG TABLET PO SCH ×2 (05:38→17:32)
[2022-05-23] MEDS: SERTRALINE HCL 50 MG TABLET (FP) PO SCH (10:40)
[2022-05-23] MEDS: NICOTINE 14 MG/24 HOURS TOPICAL PATCH TD SCH (10:40)
[2022-05-23] MEDS: levETIRAcetam 500 MG TABLET (FP) PO SCH ×2 (10:40→22:11)
[2022-05-23] MEDS: PANTOPRAZOLE 20 MG TABLET PO SCH (10:40)
[2022-05-23] MEDS: ARIPiprazole 5 MG TABLET PO SCH (10:41)
[2022-05-23] MEDS: PRENATAL VITAMINS W/ FOLIC ACID TABLET (FP) PO SCH (10:41)
[2022-05-23] MEDS: METHOCARBAMOL 500 MG TABLET PO PRN ×2 (10:43→22:11)
[2022-05-23 21:20] VITALS: TEMP 97.1
[2022-05-23] MEDS: MELATONIN 5 MG TABLETS PO PRN (22:11)
[2022-05-23] MEDS: THIAMINE HCL 100 MG TABLET (FP) PO SCH (22:11)
[2022-05-24] MEDS ORDERED: diazePAM 5 MG TABLET PO ONE (06:00)
[2022-05-24 09:40] VITALS: BP 105/64; PULSE 66; RESP 16
[2022-05-24] MEDS: ARIPiprazole 5 MG TABLET PO SCH (10:02)
[2022-05-24] MEDS: SERTRALINE HCL 50 MG TABLET (FP) PO SCH (10:02)
[2022-05-24] MEDS: PRENATAL VITAMINS W/ FOLIC ACID TABLET (FP) PO SCH (10:02)
[2022-05-24] MEDS: levETIRAcetam 500 MG TABLET (FP) PO SCH (10:02)
[2022-05-24] MEDS: PANTOPRAZOLE 20 MG TABLET PO SCH (10:02)
[2022-05-24] MEDS: NICOTINE 14 MG/24 HOURS TOPICAL PATCH TD SCH (10:03)
== END 2022-05-24 12:05 | disposition other institution (70) | DRG 773 ==
LOC: YASAS 16:35 → Y3N 19:49
PROVIDERS: ADMIT Allergy & Immunology; ATTEND Surgery
PROC: HZ2ZZZZ Detoxification Services for Substance Abuse Treatment (ICD-10-PCS; principal; 2022-05-20)
DX: F10.230 Alcohol dependence with withdrawal, uncomplicated (principal); F13.230 Sedative, hypnotic or anxiolytic dependence with withdrawal, uncomplicated; F11.20 Opioid dependence, uncomplicated; F14.20 Cocaine dependence, uncomplicated; F17.210 Nicotine dependence, cigarettes, uncomplicated; F25.0 Schizoaffective disorder, bipolar type; F31.9 Bipolar disorder, unspecified; G47.00 Insomnia, unspecified; F19.24 Other psychoactive substance dependence with psychoactive substance-induced mood disorder; Z56.0 Unemployment, unspecified; Z59.00 Homelessness unspecified; Z91.199 Patient's noncompliance with other medical treatment and regimen due to unspecified reason
CPT/HCPCS: 36415; 80053; 82962; 85027; 86780; 87811; 93005; 93010; C9803-CS; U0003; U0005

== ENCOUNTER 2023-11-19 13:01 | Inpatient (IN) | payer OTHER ==
[2023-11-19 13:59] VITALS: BMI 23.7
[2023-11-19] MEDS ORDERED: POLYETHYLENE GLYCOL (HEALTHYLAX) 3350 17 GM PACKET PO PRN (14:20)
[2023-11-19] MEDS ORDERED: MAG HYDROX/AL HYDROX/SIMETH 30 ML UNIT-DOSE CUP PO PRN (14:20)
[2023-11-19] MEDS ORDERED: NALOXONE HCL 0.4 MG/ML VIAL IM PRN (14:20)
[2023-11-19] MEDS ORDERED: NICOTINE POLACRILEX 2 MG GUM BUC PRN (14:20)
[2023-11-19] MEDS ORDERED: guaiFENesin 600 MG TABLET.ER (FP) PO PRN (14:20)
[2023-11-19] MEDS ORDERED: P-EPHED 60MG/TRIPROLIDI 2.5MG TABLET PO PRN (14:20)
[2023-11-19] MEDS ORDERED: ACETAMINOPHEN 325 MG TABLET (FP) PO PRN (14:20)
[2023-11-19] MEDS ORDERED: NALOXONE (NARCAN) HCL 4 MG/0.1 ML SPRAY NS PRN (14:20)
[2023-11-19] MEDS ORDERED: IBUPROFEN 400 MG TABLET (FP) PO PRN (14:20)
[2023-11-19] MEDS ORDERED: BENZONATATE 200 MG CAPSULE PO PRN (14:20)
[2023-11-19] MEDS ORDERED: NICOTINE POLACRILEX 2 MG LOZENGE BC PRN (14:20)
[2023-11-19] MEDS ORDERED: IBUPROFEN 600 MG TABLET (FP) PO PRN (14:20)
[2023-11-19] MEDS ORDERED: BENZOCAINE/MENTHOL (CHLORASEPTIC ) LOZENGE MM PRN (14:20)
[2023-11-19] MEDS ORDERED: MAGNESIUM HYDROX 2400MG/30ML ORAL SUSPENSION 30 ML CUP PO PRN (14:20)
[2023-11-19] MEDS: diazePAM 5 MG TABLET PO SCH (17:24)
[2023-11-19] MEDS: metFORMIN HCL 500 MG TABLET (FP) PO SCH (17:24)
[2023-11-19] MEDS: THIAMINE 100 MG TABLET PO SCH (22:11)
[2023-11-19] MEDS: levETIRAcetam 500 MG TABLET (FP) PO SCH (22:11)
[2023-11-19] MEDS: MELATONIN 5 MG TABLETS PO SCH (22:11)
[2023-11-20] MEDS: FAMOTIDINE 20 MG TABLET PO SCH (10:31)
[2023-11-20] MEDS: PRENATAL VITAMINS W/ FOLIC ACID TABLET (FP) PO SCH (10:31)
[2023-11-20] MEDS ORDERED: hydrOXYzine PAMOATE 25 MG CAPSULE (FP) PO PRN (10:52)
[2023-11-20 11:12] LABS: POTASSIUM 3.7 mmol/L (3.5-5.1)
[2023-11-20 11:16] LABS: HEMATOCRIT 40.3 % (35.4-49); HEMOGLOBIN 13.8 GM/dL (11.7-16.9); MCH 29.8 pg (25.7-33.7); MCHC 34.2 g/dl (32.0-35.9); MEAN CELL VOLUME 87.1 fl (80-96); MEAN PLT VOLUME 8.3 fl (7.5-11.1); PLATELET COUNT 190 10^3/uL (134-434); RBC 4.62 M/mm3 (4.00-5.60); RDW 14.7 % (11.9-15.9); WHITE BLOOD COUNT 7.3 K/mm3 (4.0-10.0)
[2023-11-20 11:18] LABS: ALBUMIN 3.5 g/dl (3.4-5.0); BLOOD UREA NITROGEN 14.9 mg/dL (7-18)
[2023-11-20 11:21] LABS: CREATININE 0.6 mg/dL (0.55-1.3)
[2023-11-20 11:23] LABS: TOT PROT 6.7 g/dl (6.4-8.2)
[2023-11-20] MEDS: methaDONE HCL 10 MG TABLET PO ONE (11:51)
[2023-11-21] MEDS: diazePAM 5 MG TABLET PO SCH (05:52)
[2023-11-21] MEDS: ONDANSETRON *ODT* 4 MG TABLET SL PRN (09:16)
[2023-11-21] MEDS: BISMUTH SUBSALICYLATE 262 MG/15 ML BTL PO PRN (09:16)
[2023-11-21] MEDS: methaDONE HCL 10 MG TABLET PO ONE ×2 (09:16→12:04)
[2023-11-21] MEDS: TRIMETHOBENZAMIDE HCL 200MG/2ML INJ IM ONE (10:37)
[2023-11-21] MEDS: DICYCLOMINE HCL 10 MG CAPSULE PO PRN (11:21)
[2023-11-22] MEDS: diazePAM 5 MG TABLET PO SCH (06:09)
[2023-11-22] MEDS ORDERED: methaDONE HCL 10 MG TABLET PO SCH (09:15)
[2023-11-22] MEDS: diazePAM 5 MG TABLET PO PRN (09:40)
[2023-11-22] MEDS: methaDONE 40 MG, methaDONE 10 MG PO SCH (09:53)
[2023-11-22] MEDS: LOPERAMIDE HCL 2 MG CAPSULE PO PRN (20:49)
[2023-11-22] MEDS: METHOCARBAMOL 500 MG TABLET PO PRN (22:31)
[2023-11-23] MEDS: diazePAM 5 MG TABLET PO ONE (05:42)
[2023-11-24 09:16] VITALS: RESP 18
[2023-11-24 17:05] VITALS: BP 104/66; PULSE 82; TEMP 98.6
== END 2023-11-24 17:45 | disposition other institution (70) | DRG 773 ==
LOC: YASAS 13:01 → Y3N 15:20
PROVIDERS: ADMIT Allergy & Immunology; ATTEND Surgery
PROC: HZ2ZZZZ Detoxification Services for Substance Abuse Treatment (ICD-10-PCS; principal; 2023-11-19)
DX: F10.230 Alcohol dependence with withdrawal, uncomplicated (principal); F11.20 Opioid dependence, uncomplicated; F13.20 Sedative, hypnotic or anxiolytic dependence, uncomplicated; F17.210 Nicotine dependence, cigarettes, uncomplicated; F39 Unspecified mood [affective] disorder; F19.24 Other psychoactive substance dependence with psychoactive substance-induced mood disorder; K21.9 Gastro-esophageal reflux disease without esophagitis; E11.622 Type 2 diabetes mellitus with other skin ulcer; Z79.84 Long term (current) use of oral hypoglycemic drugs; Z86.69 Personal history of other diseases of the nervous system and sense organs
CPT/HCPCS: 36415; 80053; 80305; 80307; 82962; 85027; 86780; 87811; Q0162

== ENCOUNTER 2023-11-24 18:13 | Inpatient (IN) | payer OTHER ==
[2023-11-24] MEDS ORDERED: P-EPHED 60MG/TRIPROLIDI 2.5MG TABLET PO PRN (20:06)
[2023-11-24] MEDS ORDERED: ACETAMINOPHEN 325 MG TABLET (FP) PO PRN (20:06)
[2023-11-24] MEDS ORDERED: NICOTINE POLACRILEX 2 MG GUM BUC PRN (20:06)
[2023-11-24] MEDS ORDERED: BENZONATATE 200 MG CAPSULE PO PRN (20:06)
[2023-11-24] MEDS ORDERED: NALOXONE HCL 0.4 MG/ML VIAL IVPUSH PRN (20:06)
[2023-11-24] MEDS ORDERED: METHOCARBAMOL 500 MG TABLET PO PRN (20:06)
[2023-11-24] MEDS ORDERED: POLYETHYLENE GLYCOL (HEALTHYLAX) 3350 17 GM PACKET PO PRN (20:06)
[2023-11-24] MEDS ORDERED: NALOXONE (NARCAN) HCL 4 MG/0.1 ML SPRAY NS PRN (20:06)
[2023-11-24] MEDS ORDERED: guaiFENesin 600 MG TABLET.ER (FP) PO PRN (20:06)
[2023-11-24] MEDS ORDERED: IBUPROFEN 600 MG TABLET (FP) PO PRN (20:06)
[2023-11-24] MEDS ORDERED: BENZOCAINE/MENTHOL (CHLORASEPTIC ) LOZENGE MM PRN (20:06)
[2023-11-24] MEDS ORDERED: IBUPROFEN 400 MG TABLET (FP) PO PRN (20:06)
[2023-11-24] MEDS ORDERED: MAGNESIUM HYDROX 2400MG/30ML ORAL SUSPENSION 30 ML CUP PO PRN (20:06)
[2023-11-24] MEDS ORDERED: NICOTINE POLACRILEX 2 MG LOZENGE BC PRN (20:06)
[2023-11-24] MEDS: MELATONIN 5 MG TABLETS PO SCH (21:37)
[2023-11-24] MEDS: THIAMINE 100 MG TABLET PO SCH (21:37)
[2023-11-24] MEDS: levETIRAcetam 500 MG TABLET (FP) PO SCH (21:37)
[2023-11-25] MEDS: metFORMIN HCL 500 MG TABLET (FP) PO SCH (06:22)
[2023-11-25] MEDS ORDERED: methaDONE HCL 10 MG TABLET PO SCH (08:30)
[2023-11-25] MEDS: methaDONE 40 MG, methaDONE 10 MG PO SCH (08:52)
[2023-11-25] MEDS: FAMOTIDINE 20 MG TABLET PO SCH (09:33)
[2023-11-25] MEDS: PRENATAL VITAMINS W/ FOLIC ACID TABLET (FP) PO SCH (09:33)
[2023-11-26] MEDS: MAG HYDROX/AL HYDROX/SIMETH 30 ML UNIT-DOSE CUP PO PRN (03:47)
[2023-11-26] MEDS: LOPERAMIDE HCL 2 MG CAPSULE PO PRN (14:30)
[2023-11-30] MEDS: ARIPiprazole 5 MG TABLET PO SCH (11:07)
[2023-11-30] MEDS: GABAPENTIN 300 MG CAPSULE PO SCH (13:00)
[2023-12-14 07:03] VITALS: RESP 16
[2023-12-15 06:57] VITALS: BP 125/74; PULSE 60; TEMP 97.5
== END 2023-12-15 09:32 | disposition home or self-care (01) | DRG 772 ==
LOC: YASAS 18:13 → Y5N 18:14
PROVIDERS: ADMIT Psychiatry & Neurology Pain Medicine; ATTEND Psychiatry & Neurology Pain Medicine
PROC: HZ42ZZZ Group Counseling for Substance Abuse Treatment, Cognitive-Behavioral (ICD-10-PCS; principal; 2023-11-24)
DX: F14.20 Cocaine dependence, uncomplicated (principal); F13.20 Sedative, hypnotic or anxiolytic dependence, uncomplicated; F11.20 Opioid dependence, uncomplicated; F17.210 Nicotine dependence, cigarettes, uncomplicated; F19.24 Other psychoactive substance dependence with psychoactive substance-induced mood disorder; E11.9 Type 2 diabetes mellitus without complications; Z79.84 Long term (current) use of oral hypoglycemic drugs; Z86.69 Personal history of other diseases of the nervous system and sense organs; Z91.148 Patient's other noncompliance with medication regimen for other reason
CPT/HCPCS: 82962